=== PATIENT | female | born 1945 | race Caucasian/White ===

== ENCOUNTER 2018-07-07 15:08 | Inpatient (IN) ==
[2018-07-07 17:11] LABS: Basophils % 0.8 % (0.0-0.8); Eosinophils # 0.5 10*3/uL (0.0-0.87); Eosinophils % 9.6 % (0.00-10.9); Hematocrit 27.9 VOL% (35.7-47.0); Hemoglobin 8.4 GM/DL (12.0-16.0); Immature Granulocytes % 0.4 %; Immature Granulocytes Absolute 0.02 #; Lymphocytes # 1.3 10*3/uL (1.4-4.0); Mean Corpuscular HGB Conc 30.1 GM/DL (32-36); Mean Corpuscular Hemoglobin 28 PG (27-34); Mean Corpuscular Volume 91.8 FL (87-102); Mean Platelet Volume 10.3 FL (9.6-12.0); Monocytes # 0.5 10*3/uL (0.11-0.8); Neutrophils % 56.2 % (38.7-73.9); Platelet Count 202 T/CUMM (130-400); Red Blood Count 3.04 MC/CUMM (3.8-5.5); Red Cell Distribution Width 14.5 % (9.3-17.3); White Blood Count 5.3 T/CUMM (4-12)
[2018-07-07 17:24] LABS: PT Patient Result 10.6 SECS
[2018-07-07 17:31] LABS: Albumin 3.5 G/DL (3.4-5.0); Bilirubin,Total 0.6 MG/DL (0.2-1.0); Calcium 9.6 MG/DL (8.5-10.1); Osmolality,Calculated 298.1 MOS/KG (273-304); Potassium 4.8 MMOL/L (3.5-5.1); Total Protein 6.9 G/DL (6.4-8.3)
[2018-07-07] MEDS: ACETAMINOPHEN 325 MG TABLET PO PRN (21:05)
[2018-07-07] MEDS ORDERED: NITROGLYCERIN SL 0.4 MG TABLET SL STA (23:41)
[2018-07-07] MEDS ORDERED: GLUCAGON 1 MG VIAL IM PRN (23:45)
[2018-07-07] MEDS ORDERED: ALBUTEROL/IPRATROPIUM 3 ML NEB RESP TX PRN (23:45)
[2018-07-07] MEDS ORDERED: SODIUM CHLORIDE 0.9% 1,000 ML IV SCH (23:45)
[2018-07-07] MEDS ORDERED: FUROSEMIDE 40 MG TABLET PO PRN (23:45)
[2018-07-07] MEDS ORDERED: DEXTROSE 50% 25 GM/50 ML VIAL IV PRN (23:45)
[2018-07-08 00:20] LABS: Troponin I < 0.015 NG/ML (0.00-0.045)
[2018-07-08] MEDS: INSULIN REGULAR 100 UNIT/ML SUBCUT SCH ×4 (01:17→18:00)
[2018-07-08 04:23] LABS: Basophils % 0.9 % (0.0-0.8); Eosinophils # 0.5 10*3/uL (0.0-0.87); Eosinophils % 10.3 % (0.00-10.9); Hematocrit 25.5 VOL% (35.7-47.0); Hemoglobin 7.6 GM/DL (12.0-16.0); Immature Granulocytes % 0.2 %; Immature Granulocytes Absolute 0.01 #; Lymphocytes # 1.3 10*3/uL (1.4-4.0); Lymphocytes % 28.8 % (21.3-54.2); Mean Corpuscular HGB Conc 29.8 GM/DL (32-36); Mean Corpuscular Hemoglobin 28 PG (27-34); Mean Corpuscular Volume 93.1 FL (87-102); Mean Platelet Volume 10.3 FL (9.6-12.0); Monocytes # 0.4 10*3/uL (0.11-0.8); Monocytes % 9.5 % (1.7-12.7); Neutrophils # 2.3 10*3/uL (1.4-7.4); Neutrophils % 50.3 % (38.7-73.9); Platelet Count 174 T/CUMM (130-400); Red Blood Count 2.74 MC/CUMM (3.8-5.5); Red Cell Distribution Width 14.6 % (9.3-17.3); White Blood Count 4.7 T/CUMM (4-12)
[2018-07-08 04:52] LABS: Albumin 2.9 G/DL (3.4-5.0); Bilirubin,Total 0.5 MG/DL (0.2-1.0); Calcium 9.1 MG/DL (8.5-10.1); Osmolality,Calculated 298.1 MOS/KG (273-304); Potassium 4.2 MMOL/L (3.5-5.1); Risk Ratio 3.33; Total Protein 6.3 G/DL (6.4-8.3)
[2018-07-08] MEDS ORDERED: FUROSEMIDE 20 MG/2 ML VIAL IV SCH (08:00)
[2018-07-08] MEDS ORDERED: CARVEDILOL 6.25 MG TABLET PO SCH (08:00)
[2018-07-08] MEDS ORDERED: PRAVASTATIN SODIUM 80 MG PO SCH (09:00)
[2018-07-08] MEDS ORDERED: GABAPENTIN 100 MG CAPSULE PO SCH (09:00)
[2018-07-08] MEDS ORDERED: DOCUSATE SODIUM 100 MG CAPSULE PO SCH (09:00)
[2018-07-08] MEDS ORDERED: FUROSEMIDE 20 MG/2 ML VIAL IV ONE ×2 (09:57→15:34)
[2018-07-08] MEDS: ONDANSETRON 4 MG/2 ML VIAL IV PRN (10:19)
[2018-07-08] MEDS: ALBUTEROL/IPRATROPIUM 3 ML NEB RESP TX SCH ×3 (10:20→18:40)
[2018-07-08] MEDS: FUROSEMIDE 40 MG/4 ML VIAL IV SCH ×2 (10:38→16:32)
[2018-07-08 11:04] LABS: Amorphous Crystals,Urine Occasional /HPF (Few); Apearance,Urine Slightly Hazy (Clear); Bilirubin,Urine Negative (Negative); Blood, Urine Small mg/dL (Negative); Glucose,Urine (UA) 50 mg/dL (Negative); Ketones,Urine Negative (Negative); Mucus,Urine Occasional /LPF (Occasional); Nitrite,Urine Positive (Negative); Protein,Urine >=500 MG/DL; RBC,Urine 6 /HPF (0-4); Urine Color Yellow (Yellow); Urine Specific Gravity 1.011 (1.001-1.035); Urine Urobilinogen < 2.0 EU/DL (0.2-1.0); WBC,Urine 66 /HPF (0-6)
[2018-07-08] MEDS: amLODIPine 10 MG TABLET PO SCH (11:08)
[2018-07-08] MEDS: PARoxetine 20 MG TABLET PO SCH (11:08)
[2018-07-08] MEDS: DOCUSATE SODIUM 100 MG CAPSULE PO SCH ×2 (11:08→21:00)
[2018-07-08] MEDS: FERROUS SULFATE 325 MG TABLET PO SCH (11:09)
[2018-07-08] MEDS: APIXABAN 2.5 MG TABLET PO SCH ×2 (11:09→23:32)
[2018-07-08] MEDS: PANTOPRAZOLE 40 MG TABLET PO SCH (11:09)
[2018-07-08] MEDS: CYANOCOBALAMIN 500 MCG TABLET PO SCH (11:09)
[2018-07-08] MEDS: ASPIRIN EC 81 MG TABLET PO SCH (11:10)
[2018-07-08] MEDS: ISOSORBIDE MONONITRATE 30 MG TABLET PO SCH (11:10)
[2018-07-08] MEDS: ERGOCALCIFEROL 50,000 UNIT CAPSULE PO SCH (11:14)
[2018-07-08] MEDS: cefTRIAXone 1,000 MG in SYRINGE 1 EACH IV SCH (14:44)
[2018-07-08] MEDS ORDERED: SODIUM CHLORIDE 0.9% 1,000 ML IV PRN (15:34)
[2018-07-08] MEDS: CARVEDILOL 12.5 MG TABLET PO SCH (16:32)
[2018-07-08 16:49] LABS: % Iron Saturation 12.6 % (18-50); Ferritin 353.3 ng/ml (8-252)
[2018-07-08] MEDS: ROSUVASTATIN 20 MG TABLET PO SCH (23:32)
[2018-07-08] MEDS: GABAPENTIN 300 MG CAPSULE PO SCH (23:33)
[2018-07-08] MEDS: INSULIN GLARGINE 100 UNIT/ML SUBCUT SCH (23:33)
[2018-07-09] MEDS: ALBUTEROL/IPRATROPIUM 3 ML NEB RESP TX SCH ×4 (00:10→20:22)
[2018-07-09] MEDS: INSULIN REGULAR 100 UNIT/ML SUBCUT SCH ×4 (00:48→17:25)
[2018-07-09 04:25] LABS: Basophils % 0.7 % (0.0-0.8); Eosinophils # 0.4 10*3/uL (0.0-0.87); Eosinophils % 7.8 % (0.00-10.9); Hematocrit 30.6 VOL% (35.7-47.0); Hemoglobin 9.7 GM/DL (12.0-16.0); Immature Granulocytes % 0.2 %; Immature Granulocytes Absolute 0.01 #; Lymphocytes % 18.3 % (21.3-54.2); Mean Corpuscular HGB Conc 31.7 GM/DL (32-36); Mean Corpuscular Hemoglobin 29 PG (27-34); Mean Corpuscular Volume 90.5 FL (87-102); Mean Platelet Volume 10.1 FL (9.6-12.0); Monocytes # 0.5 10*3/uL (0.11-0.8); Monocytes % 9.6 % (1.7-12.7); Neutrophils # 3.4 10*3/uL (1.4-7.4); Neutrophils % 63.4 % (38.7-73.9); Platelet Count 164 T/CUMM (130-400); Red Blood Count 3.38 MC/CUMM (3.8-5.5); Red Cell Distribution Width 14.3 % (9.3-17.3); White Blood Count 5.4 T/CUMM (4-12)
[2018-07-09 04:47] LABS: Osmolality,Calculated 298.1 MOS/KG (273-304); Potassium 4.1 MMOL/L (3.5-5.1)
[2018-07-09] MEDS: FUROSEMIDE 40 MG/4 ML VIAL IV SCH ×3 (09:24→16:43)
[2018-07-09] MEDS: CARVEDILOL 12.5 MG TABLET PO SCH ×2 (10:04→16:28)
[2018-07-09] MEDS: ASPIRIN EC 81 MG TABLET PO SCH (10:05)
[2018-07-09] MEDS: FOLIC ACID 0.4 MG TABLET PO SCH (10:05)
[2018-07-09] MEDS: DOCUSATE SODIUM 100 MG CAPSULE PO SCH ×2 (10:05→21:51)
[2018-07-09] MEDS: APIXABAN 2.5 MG TABLET PO SCH ×2 (10:05→21:51)
[2018-07-09] MEDS: FERROUS SULFATE 325 MG TABLET PO SCH (10:05)
[2018-07-09] MEDS: ISOSORBIDE MONONITRATE 30 MG TABLET PO SCH (10:06)
[2018-07-09] MEDS: amLODIPine 10 MG TABLET PO SCH (10:06)
[2018-07-09] MEDS: CYANOCOBALAMIN 500 MCG TABLET PO SCH (10:06)
[2018-07-09] MEDS: PANTOPRAZOLE 40 MG TABLET PO SCH (10:06)
[2018-07-09] MEDS: PARoxetine 20 MG TABLET PO SCH (10:06)
[2018-07-09] MEDS: cefTRIAXone 1,000 MG in SYRINGE 1 EACH IV SCH (16:28)
[2018-07-09] MEDS: ACETAMINOPHEN 325 MG TABLET PO PRN (19:12)
[2018-07-09] MEDS: INSULIN GLARGINE 100 UNIT/ML SUBCUT SCH (21:51)
[2018-07-09] MEDS: ROSUVASTATIN 20 MG TABLET PO SCH (21:51)
[2018-07-09] MEDS: GABAPENTIN 300 MG CAPSULE PO SCH (21:51)
[2018-07-10] MEDS: ALBUTEROL/IPRATROPIUM 3 ML NEB RESP TX SCH ×4 (01:34→20:02)
[2018-07-10 03:11] LABS: Basophils % 0.7 % (0.0-0.8); Eosinophils # 0.7 10*3/uL (0.0-0.87); Eosinophils % 12.6 % (0.00-10.9); Hematocrit 32.6 VOL% (35.7-47.0); Hemoglobin 10.3 GM/DL (12.0-16.0); Immature Granulocytes % 0.2 %; Immature Granulocytes Absolute 0.01 #; Lymphocytes # 1.3 10*3/uL (1.4-4.0); Lymphocytes % 23.3 % (21.3-54.2); Mean Corpuscular HGB Conc 31.6 GM/DL (32-36); Mean Corpuscular Hemoglobin 29 PG (27-34); Mean Corpuscular Volume 90.8 FL (87-102); Mean Platelet Volume 10.2 FL (9.6-12.0); Monocytes # 0.6 10*3/uL (0.11-0.8); Monocytes % 10.7 % (1.7-12.7); Neutrophils # 2.8 10*3/uL (1.4-7.4); Neutrophils % 52.5 % (38.7-73.9); Platelet Count 161 T/CUMM (130-400); Red Blood Count 3.59 MC/CUMM (3.8-5.5); Red Cell Distribution Width 14.4 % (9.3-17.3); White Blood Count 5.4 T/CUMM (4-12)
[2018-07-10 03:40] LABS: Calcium 8.9 MG/DL (8.5-10.1); Osmolality,Calculated 302.1 MOS/KG (273-304); Potassium 3.6 MMOL/L (3.5-5.1)
[2018-07-10 03:56] LABS: Eosinophils 12 % (0-10); Lymphocytes 24 % (20-55); Segmented Neutrophils 53 % (50-85); Total Cells Counted 100
[2018-07-10 03:57] LABS: Platelet Estimate Normal
[2018-07-10] MEDS: INSULIN REGULAR 100 UNIT/ML SUBCUT SCH ×4 (04:51→18:02)
[2018-07-10] MEDS ORDERED: FUROSEMIDE 40 MG TABLET PO SCH (08:00)
[2018-07-10] MEDS: ASPIRIN EC 81 MG TABLET PO SCH (08:58)
[2018-07-10] MEDS: CARVEDILOL 12.5 MG TABLET PO SCH ×2 (08:58→18:02)
[2018-07-10] MEDS: FERROUS SULFATE 325 MG TABLET PO SCH (08:58)
[2018-07-10] MEDS: DOCUSATE SODIUM 100 MG CAPSULE PO SCH ×2 (08:58→20:33)
[2018-07-10] MEDS: CYANOCOBALAMIN 500 MCG TABLET PO SCH (08:59)
[2018-07-10] MEDS: APIXABAN 2.5 MG TABLET PO SCH ×2 (08:59→20:33)
[2018-07-10] MEDS: amLODIPine 10 MG TABLET PO SCH (08:59)
[2018-07-10] MEDS: ISOSORBIDE MONONITRATE 30 MG TABLET PO SCH (08:59)
[2018-07-10] MEDS: PANTOPRAZOLE 40 MG TABLET PO SCH (08:59)
[2018-07-10] MEDS: PARoxetine 20 MG TABLET PO SCH (08:59)
[2018-07-10] MEDS ORDERED: DEXTROSE 50% 25 GM/50 ML VIAL IV PRN (09:03)
[2018-07-10] MEDS ORDERED: GLUCAGON 1 MG VIAL IM PRN (09:03)
[2018-07-10] MEDS: cefTRIAXone 1,000 MG in SYRINGE 1 EACH IV SCH (15:02)
[2018-07-10] MEDS ORDERED: PHENOL 1.4% THROAT SPRAY 177 ML BOTTLE PO PRN (18:06)
[2018-07-10] MEDS: GABAPENTIN 300 MG CAPSULE PO SCH (20:32)
[2018-07-10] MEDS: ROSUVASTATIN 20 MG TABLET PO SCH (20:32)
[2018-07-10] MEDS: INSULIN GLARGINE 100 UNIT/ML SUBCUT SCH (20:33)
[2018-07-11] MEDS: ALBUTEROL/IPRATROPIUM 3 ML NEB RESP TX SCH ×4 (00:18→19:31)
[2018-07-11] MEDS: INSULIN REGULAR 100 UNIT/ML SUBCUT SCH ×5 (00:30→23:23)
[2018-07-11 05:51] LABS: Basophils % 0.6 % (0.0-0.8); Eosinophils # 0.7 10*3/uL (0.0-0.87); Eosinophils % 13.7 % (0.00-10.9); Hematocrit 31.6 VOL% (35.7-47.0); Hemoglobin 9.9 GM/DL (12.0-16.0); Immature Granulocytes % 0.2 %; Immature Granulocytes Absolute 0.01 #; Lymphocytes # 1.4 10*3/uL (1.4-4.0); Lymphocytes % 26.3 % (21.3-54.2); Mean Corpuscular HGB Conc 31.3 GM/DL (32-36); Mean Corpuscular Hemoglobin 28 PG (27-34); Mean Corpuscular Volume 89.8 FL (87-102); Mean Platelet Volume 10.6 FL (9.6-12.0); Monocytes # 0.6 10*3/uL (0.11-0.8); Monocytes % 10.3 % (1.7-12.7); Neutrophils # 2.6 10*3/uL (1.4-7.4); Neutrophils % 48.9 % (38.7-73.9); Platelet Count 168 T/CUMM (130-400); Red Blood Count 3.52 MC/CUMM (3.8-5.5); White Blood Count 5.3 T/CUMM (4-12)
[2018-07-11 06:12] LABS: Calcium 8.8 MG/DL (8.5-10.1); Osmolality,Calculated 298.3 MOS/KG (273-304); Potassium 3.4 MMOL/L (3.5-5.1)
[2018-07-11 06:20] LABS: Hypochromasia 1+; Microcytosis 1+
[2018-07-11 06:21] LABS: Ovalocytes Slight; Platelet Estimate Adequate
[2018-07-11] MEDS: CYANOCOBALAMIN 500 MCG TABLET PO SCH (09:16)
[2018-07-11] MEDS: DOCUSATE SODIUM 100 MG CAPSULE PO SCH ×2 (09:16→22:12)
[2018-07-11] MEDS: PANTOPRAZOLE 40 MG TABLET PO SCH (09:16)
[2018-07-11] MEDS: FOLIC ACID 0.4 MG TABLET PO SCH (09:16)
[2018-07-11] MEDS: FUROSEMIDE 40 MG TABLET PO SCH (09:16)
[2018-07-11] MEDS: CARVEDILOL 12.5 MG TABLET PO SCH ×2 (09:17→18:04)
[2018-07-11] MEDS: ASPIRIN EC 81 MG TABLET PO SCH (09:17)
[2018-07-11] MEDS: PARoxetine 20 MG TABLET PO SCH (09:17)
[2018-07-11] MEDS: ISOSORBIDE MONONITRATE 30 MG TABLET PO SCH (09:17)
[2018-07-11] MEDS: FERROUS SULFATE 325 MG TABLET PO SCH (09:17)
[2018-07-11] MEDS: amLODIPine 10 MG TABLET PO SCH (09:17)
[2018-07-11] MEDS: APIXABAN 2.5 MG TABLET PO SCH ×2 (09:17→22:13)
[2018-07-11] MEDS: ERGOCALCIFEROL 50,000 UNIT CAPSULE PO SCH (09:20)
[2018-07-11] MEDS: ZINC OXIDE PASTE 113 GM TUBE TOP SCH ×2 (15:03→22:12)
[2018-07-11] MEDS: ACETAMINOPHEN 325 MG TABLET PO PRN (15:03)
[2018-07-11] MEDS: cefTRIAXone 1,000 MG in SYRINGE 1 EACH IV SCH (15:08)
[2018-07-11] MEDS: ROSUVASTATIN 20 MG TABLET PO SCH (22:12)
[2018-07-11] MEDS: GABAPENTIN 300 MG CAPSULE PO SCH (22:13)
[2018-07-11] MEDS: INSULIN GLARGINE 100 UNIT/ML SUBCUT SCH (22:13)
[2018-07-12] MEDS: ALBUTEROL/IPRATROPIUM 3 ML NEB RESP TX SCH ×4 (00:34→20:48)
[2018-07-12 05:28] LABS: Basophils % 0.8 % (0.0-0.8); Eosinophils # 0.6 10*3/uL (0.0-0.87); Hematocrit 30.2 VOL% (35.7-47.0); Hemoglobin 9.5 GM/DL (12.0-16.0); Immature Granulocytes % 0.2 %; Immature Granulocytes Absolute 0.01 #; Lymphocytes # 1.2 10*3/uL (1.4-4.0); Lymphocytes % 25.8 % (21.3-54.2); Mean Corpuscular HGB Conc 31.5 GM/DL (32-36); Mean Corpuscular Hemoglobin 29 PG (27-34); Mean Platelet Volume 10.5 FL (9.6-12.0); Monocytes # 0.6 10*3/uL (0.11-0.8); Monocytes % 12.4 % (1.7-12.7); Neutrophils # 2.3 10*3/uL (1.4-7.4); Neutrophils % 47.8 % (38.7-73.9); Platelet Count 155 T/CUMM (130-400); Red Blood Count 3.32 MC/CUMM (3.8-5.5); Red Cell Distribution Width 13.7 % (9.3-17.3); White Blood Count 4.8 T/CUMM (4-12)
[2018-07-12 05:47] LABS: Calcium 8.7 MG/DL (8.5-10.1); Osmolality,Calculated 302.3 MOS/KG (273-304); Potassium 3.6 MMOL/L (3.5-5.1)
[2018-07-12] MEDS: INSULIN REGULAR 100 UNIT/ML SUBCUT SCH ×3 (06:15→18:34)
[2018-07-12 06:16] LABS: Eosinophils 10 % (0-10); Hypochromasia Slight; Lymphocytes 31 % (20-55); Platelet Estimate Decreased; Polychromasia Few; Segmented Neutrophils 53 % (50-85); Total Cells Counted 100
[2018-07-12] MEDS: CARVEDILOL 12.5 MG TABLET PO SCH (10:20)
[2018-07-12] MEDS: ZINC OXIDE PASTE 113 GM TUBE TOP SCH ×2 (10:20→21:36)
[2018-07-12] MEDS: FERROUS SULFATE 325 MG TABLET PO SCH (10:20)
[2018-07-12] MEDS: POTASSIUM CHLORIDE 20 MEQ TABLET PO PRN (10:21)
[2018-07-12] MEDS: PANTOPRAZOLE 40 MG TABLET PO SCH (10:21)
[2018-07-12] MEDS: FUROSEMIDE 40 MG TABLET PO SCH (10:21)
[2018-07-12] MEDS: ASPIRIN EC 81 MG TABLET PO SCH (10:21)
[2018-07-12] MEDS: DOCUSATE SODIUM 100 MG CAPSULE PO SCH ×2 (10:21→21:36)
[2018-07-12] MEDS: amLODIPine 10 MG TABLET PO SCH (10:22)
[2018-07-12] MEDS: PARoxetine 20 MG TABLET PO SCH (10:22)
[2018-07-12] MEDS: ISOSORBIDE MONONITRATE 30 MG TABLET PO SCH (10:22)
[2018-07-12] MEDS: APIXABAN 2.5 MG TABLET PO SCH ×2 (10:22→21:35)
[2018-07-12] MEDS: CYANOCOBALAMIN 500 MCG TABLET PO SCH (10:22)
[2018-07-12] MEDS: cefTRIAXone 1,000 MG in SYRINGE 1 EACH IV SCH (14:54)
[2018-07-12] MEDS: LINEZOLID INJ 600 MG in PREMIX 1 EACH IV SCH (16:43)
[2018-07-12] MEDS: CARVEDILOL 25 MG TABLET PO SCH (17:00)
[2018-07-12] MEDS: ROSUVASTATIN 20 MG TABLET PO SCH (21:34)
[2018-07-12] MEDS: INSULIN GLARGINE 100 UNIT/ML SUBCUT SCH (21:35)
[2018-07-12] MEDS: GABAPENTIN 300 MG CAPSULE PO SCH (21:35)
[2018-07-12] MEDS: ACETAMINOPHEN 325 MG TABLET PO PRN (22:43)
[2018-07-13] MEDS: ALBUTEROL/IPRATROPIUM 3 ML NEB RESP TX SCH ×4 (02:03→19:56)
[2018-07-13] MEDS: INSULIN REGULAR 100 UNIT/ML SUBCUT SCH ×4 (02:52→18:08)
[2018-07-13 05:07] LABS: Basophils # 0.1 10*3/uL (0.0-0.2); Eosinophils # 0.8 10*3/uL (0.0-0.87); Eosinophils % 15.4 % (0.00-10.9); Hematocrit 30.7 VOL% (35.7-47.0); Hemoglobin 9.5 GM/DL (12.0-16.0); Immature Granulocytes % 0.2 %; Immature Granulocytes Absolute 0.01 #; Lymphocytes # 1.6 10*3/uL (1.4-4.0); Lymphocytes % 31.8 % (21.3-54.2); Mean Corpuscular HGB Conc 30.9 GM/DL (32-36); Mean Corpuscular Hemoglobin 28 PG (27-34); Mean Corpuscular Volume 90.6 FL (87-102); Mean Platelet Volume 10.6 FL (9.6-12.0); Monocytes # 0.6 10*3/uL (0.11-0.8); Monocytes % 11.9 % (1.7-12.7); Neutrophils # 1.9 10*3/uL (1.4-7.4); Neutrophils % 39.7 % (38.7-73.9); Platelet Count 159 T/CUMM (130-400); Red Blood Count 3.39 MC/CUMM (3.8-5.5); Red Cell Distribution Width 13.4 % (9.3-17.3); White Blood Count 4.9 T/CUMM (4-12)
[2018-07-13 05:23] LABS: Calcium 8.8 MG/DL (8.5-10.1); Osmolality,Calculated 298.4 MOS/KG (273-304); Potassium 3.7 MMOL/L (3.5-5.1)
[2018-07-13] MEDS: LINEZOLID INJ 600 MG in PREMIX 1 EACH IV SCH ×2 (05:31→16:38)
[2018-07-13 06:18] LABS: Band Neutrophils 5 % (0-10); Eosinophils 13 % (0-10); Lymphocytes 25 % (20-55); Segmented Neutrophils 51 % (50-85)
[2018-07-13 06:19] LABS: Platelet Estimate Adequate; Total Cells Counted 100
[2018-07-13] MEDS: CYANOCOBALAMIN 500 MCG TABLET PO SCH (08:53)
[2018-07-13] MEDS: FOLIC ACID 0.4 MG TABLET PO SCH (08:53)
[2018-07-13] MEDS: POTASSIUM CHLORIDE 20 MEQ TABLET PO PRN (08:53)
[2018-07-13] MEDS: FUROSEMIDE 40 MG TABLET PO SCH (08:53)
[2018-07-13] MEDS: DOCUSATE SODIUM 100 MG CAPSULE PO SCH ×2 (08:54→20:17)
[2018-07-13] MEDS: ZINC OXIDE PASTE 113 GM TUBE TOP SCH ×2 (08:54→20:18)
[2018-07-13] MEDS: CARVEDILOL 25 MG TABLET PO SCH ×2 (08:54→16:41)
[2018-07-13] MEDS: amLODIPine 10 MG TABLET PO SCH (08:54)
[2018-07-13] MEDS: ASPIRIN EC 81 MG TABLET PO SCH (08:54)
[2018-07-13] MEDS: ISOSORBIDE MONONITRATE 30 MG TABLET PO SCH (08:54)
[2018-07-13] MEDS: APIXABAN 2.5 MG TABLET PO SCH ×2 (08:54→20:18)
[2018-07-13] MEDS: FERROUS SULFATE 325 MG TABLET PO SCH (08:54)
[2018-07-13] MEDS: PANTOPRAZOLE 40 MG TABLET PO SCH (08:54)
[2018-07-13] MEDS: ACETAMINOPHEN 325 MG TABLET PO PRN (16:45)
[2018-07-13] MEDS: ROSUVASTATIN 20 MG TABLET PO SCH (20:17)
[2018-07-13] MEDS: GABAPENTIN 300 MG CAPSULE PO SCH (20:18)
[2018-07-13] MEDS: INSULIN GLARGINE 100 UNIT/ML SUBCUT SCH (20:18)
[2018-07-14] MEDS: ALBUTEROL/IPRATROPIUM 3 ML NEB RESP TX SCH ×4 (00:27→19:50)
[2018-07-14] MEDS: INSULIN REGULAR 100 UNIT/ML SUBCUT SCH ×4 (00:49→21:25)
[2018-07-14] MEDS: LINEZOLID INJ 600 MG in PREMIX 1 EACH IV SCH ×2 (04:20→16:13)
[2018-07-14 06:22] LABS: Basophils % 0.8 % (0.0-0.8); Eosinophils # 0.7 10*3/uL (0.0-0.87); Eosinophils % 13.5 % (0.00-10.9); Hematocrit 30.1 VOL% (35.7-47.0); Hemoglobin 9.4 GM/DL (12.0-16.0); Immature Granulocytes % 0.2 %; Immature Granulocytes Absolute 0.01 #; Lymphocytes # 1.6 10*3/uL (1.4-4.0); Lymphocytes % 30.3 % (21.3-54.2); Mean Corpuscular HGB Conc 31.2 GM/DL (32-36); Mean Corpuscular Hemoglobin 28 PG (27-34); Mean Corpuscular Volume 90.4 FL (87-102); Mean Platelet Volume 11.1 FL (9.6-12.0); Monocytes # 0.5 10*3/uL (0.11-0.8); Monocytes % 9.8 % (1.7-12.7); Neutrophils # 2.4 10*3/uL (1.4-7.4); Neutrophils % 45.4 % (38.7-73.9); Platelet Count 156 T/CUMM (130-400); Red Blood Count 3.33 MC/CUMM (3.8-5.5); Red Cell Distribution Width 13.2 % (9.3-17.3); White Blood Count 5.2 T/CUMM (4-12)
[2018-07-14 06:55] LABS: Calcium 8.9 MG/DL (8.5-10.1); Osmolality,Calculated 299.7 MOS/KG (273-304)
[2018-07-14 07:06] LABS: Eosinophils 19 % (0-10); Hypochromasia 1+; Lymphocytes 27 % (20-55); Platelet Estimate Adequate; Segmented Neutrophils 52 % (50-85); Total Cells Counted 100
[2018-07-14] MEDS: FUROSEMIDE 40 MG TABLET PO SCH (09:12)
[2018-07-14] MEDS: ASPIRIN EC 81 MG TABLET PO SCH (09:12)
[2018-07-14] MEDS: CYANOCOBALAMIN 500 MCG TABLET PO SCH (09:12)
[2018-07-14] MEDS: DOCUSATE SODIUM 100 MG CAPSULE PO SCH ×2 (09:12→21:25)
[2018-07-14] MEDS: CARVEDILOL 25 MG TABLET PO SCH ×2 (09:12→16:14)
[2018-07-14] MEDS: PANTOPRAZOLE 40 MG TABLET PO SCH (09:12)
[2018-07-14] MEDS: APIXABAN 2.5 MG TABLET PO SCH ×2 (09:12→21:25)
[2018-07-14] MEDS: FERROUS SULFATE 325 MG TABLET PO SCH (09:12)
[2018-07-14] MEDS: ISOSORBIDE MONONITRATE 30 MG TABLET PO SCH (09:12)
[2018-07-14] MEDS: amLODIPine 10 MG TABLET PO SCH (09:12)
[2018-07-14] MEDS: ZINC OXIDE PASTE 113 GM TUBE TOP SCH ×2 (09:13→21:25)
[2018-07-14] MEDS: DESITIN 4OZ/NYSTATIN 15 GRAM MIXTURE PASTE TOP SCH ×2 (16:15→21:25)
[2018-07-14] MEDS: ROSUVASTATIN 20 MG TABLET PO SCH (21:24)
[2018-07-14] MEDS: GABAPENTIN 300 MG CAPSULE PO SCH (21:24)
[2018-07-14] MEDS: INSULIN GLARGINE 100 UNIT/ML SUBCUT SCH (21:25)
[2018-07-15] MEDS: INSULIN REGULAR 100 UNIT/ML SUBCUT SCH ×4 (00:31→19:20)
[2018-07-15] MEDS: ALBUTEROL/IPRATROPIUM 3 ML NEB RESP TX SCH ×4 (01:45→19:21)
[2018-07-15] MEDS: LINEZOLID INJ 600 MG in PREMIX 1 EACH IV SCH ×2 (04:36→16:53)
[2018-07-15] MEDS: ACETAMINOPHEN 325 MG TABLET PO PRN (06:43)
[2018-07-15 08:16] LABS: Calcium 9.2 MG/DL (8.5-10.1); Osmolality,Calculated 303.7 MOS/KG (273-304)
[2018-07-15] MEDS: FOLIC ACID 0.4 MG TABLET PO SCH (09:37)
[2018-07-15] MEDS: amLODIPine 10 MG TABLET PO SCH (09:38)
[2018-07-15] MEDS: CARVEDILOL 25 MG TABLET PO SCH ×2 (09:38→16:53)
[2018-07-15] MEDS: CYANOCOBALAMIN 500 MCG TABLET PO SCH (09:38)
[2018-07-15] MEDS: ERGOCALCIFEROL 50,000 UNIT CAPSULE PO SCH (09:38)
[2018-07-15] MEDS: APIXABAN 2.5 MG TABLET PO SCH ×2 (09:39→22:04)
[2018-07-15] MEDS: FERROUS SULFATE 325 MG TABLET PO SCH (09:39)
[2018-07-15] MEDS: ISOSORBIDE MONONITRATE 30 MG TABLET PO SCH (09:39)
[2018-07-15] MEDS: ASPIRIN EC 81 MG TABLET PO SCH (09:39)
[2018-07-15] MEDS: FUROSEMIDE 40 MG TABLET PO SCH (09:39)
[2018-07-15] MEDS: DOCUSATE SODIUM 100 MG CAPSULE PO SCH ×2 (09:39→22:04)
[2018-07-15] MEDS: PANTOPRAZOLE 40 MG TABLET PO SCH (09:40)
[2018-07-15] MEDS ORDERED: MAGNESIUM SULF RIDER 2 GM in PREMIX 1 EACH IV PRN (09:41)
[2018-07-15] MEDS ORDERED: POTASSIUM CHLORIDE RIDER 10 MEQ in PREMIX 1 EACH IV PRN (09:41)
[2018-07-15] MEDS: ZINC OXIDE PASTE 113 GM TUBE TOP SCH ×3 (09:45→22:04)
[2018-07-15] MEDS: DESITIN 4OZ/NYSTATIN 15 GRAM MIXTURE PASTE TOP SCH ×2 (10:30→22:04)
[2018-07-15] MEDS ORDERED: TEMAZEPAM 15 MG CAPSULE PO PRN (20:18)
[2018-07-15] MEDS: INSULIN GLARGINE 100 UNIT/ML SUBCUT SCH (22:03)
[2018-07-15] MEDS: ROSUVASTATIN 20 MG TABLET PO SCH (22:04)
[2018-07-15] MEDS: GABAPENTIN 300 MG CAPSULE PO SCH (22:04)
[2018-07-16] MEDS: ALBUTEROL/IPRATROPIUM 3 ML NEB RESP TX SCH ×4 (00:39→20:44)
[2018-07-16] MEDS: INSULIN REGULAR 100 UNIT/ML SUBCUT SCH ×5 (02:42→22:05)
[2018-07-16] MEDS: LINEZOLID INJ 600 MG in PREMIX 1 EACH IV SCH ×2 (04:32→16:42)
[2018-07-16 05:06] LABS: Basophils # 0.1 10*3/uL (0.0-0.2); Basophils % 0.8 % (0.0-0.8); Eosinophils # 0.7 10*3/uL (0.0-0.87); Eosinophils % 10.7 % (0.00-10.9); Hematocrit 29.6 VOL% (35.7-47.0); Hemoglobin 9.3 GM/DL (12.0-16.0); Immature Granulocytes % 0.2 %; Immature Granulocytes Absolute 0.01 #; Lymphocytes # 1.9 10*3/uL (1.4-4.0); Lymphocytes % 29.3 % (21.3-54.2); Mean Corpuscular HGB Conc 31.4 GM/DL (32-36); Mean Corpuscular Hemoglobin 28 PG (27-34); Mean Corpuscular Volume 89.2 FL (87-102); Mean Platelet Volume 11.1 FL (9.6-12.0); Monocytes # 0.5 10*3/uL (0.11-0.8); Neutrophils # 3.2 10*3/uL (1.4-7.4); Platelet Count 175 T/CUMM (130-400); Red Blood Count 3.32 MC/CUMM (3.8-5.5); White Blood Count 6.4 T/CUMM (4-12)
[2018-07-16 05:26] LABS: Calcium 9.2 MG/DL (8.5-10.1); Osmolality,Calculated 304.8 MOS/KG (273-304); Potassium 3.8 MMOL/L (3.5-5.1)
[2018-07-16] MEDS ORDERED: POTASSIUM CHLORIDE RIDER 10 MEQ in PREMIX 1 EACH IV PRN (08:15)
[2018-07-16] MEDS ORDERED: MAGNESIUM SULF RIDER 2 GM in PREMIX 1 EACH IV PRN (08:15)
[2018-07-16] MEDS ORDERED: DIAZEPAM 5 MG TABLET PO ONE (11:00)
[2018-07-16] MEDS ORDERED: diphenhydrAMINE CAP 25 MG CAPSULE PO ONE (11:00)
[2018-07-16] MEDS ORDERED: LIDOCAINE 1% 20 ML VIAL ONE (11:46)
[2018-07-16] MEDS ORDERED: HEPARIN/NACL 0.9% 2 UNITS/ML 1,000 ML IV ONE (11:46)
[2018-07-16] MEDS: SODIUM CHLORIDE 0.9% 1,000 ML IV SCH ×2 (12:00→22:04)
[2018-07-16] MEDS ORDERED: MIDAZOLAM 2 MG/2 ML VIAL ONE (12:29)
[2018-07-16] MEDS ORDERED: HYDROmorphone 2 MG/1 ML VIAL ONE (12:29)
[2018-07-16] MEDS ORDERED: DEXTROSE 50% 25 GM/50 ML VIAL IV PRN (13:15)
[2018-07-16] MEDS ORDERED: GLUCAGON 1 MG VIAL IM PRN (13:15)
[2018-07-16] MEDS: FUROSEMIDE 40 MG TABLET PO SCH (15:50)
[2018-07-16] MEDS: ASPIRIN EC 81 MG TABLET PO SCH (15:51)
[2018-07-16] MEDS: GABAPENTIN 100 MG CAPSULE PO SCH ×3 (15:51→22:04)
[2018-07-16] MEDS: CYANOCOBALAMIN 500 MCG TABLET PO SCH (15:51)
[2018-07-16] MEDS: FERROUS SULFATE 325 MG TABLET PO SCH (15:51)
[2018-07-16] MEDS: amLODIPine 10 MG TABLET PO SCH (15:52)
[2018-07-16] MEDS: APIXABAN 2.5 MG TABLET PO SCH ×2 (15:52→22:04)
[2018-07-16] MEDS: CARVEDILOL 25 MG TABLET PO SCH ×2 (15:52→16:44)
[2018-07-16] MEDS: DOCUSATE SODIUM 100 MG CAPSULE PO SCH ×2 (15:52→22:05)
[2018-07-16] MEDS: ISOSORBIDE MONONITRATE 30 MG TABLET PO SCH (15:52)
[2018-07-16] MEDS: PANTOPRAZOLE 40 MG TABLET PO SCH (15:52)
[2018-07-16] MEDS: DESITIN 4OZ/NYSTATIN 15 GRAM MIXTURE PASTE TOP SCH ×2 (15:53→22:10)
[2018-07-16] MEDS: ZINC OXIDE PASTE 113 GM TUBE TOP SCH ×2 (15:53→22:05)
[2018-07-16] MEDS: ROSUVASTATIN 20 MG TABLET PO SCH (22:04)
[2018-07-16] MEDS: INSULIN GLARGINE 100 UNIT/ML SUBCUT SCH (22:05)
[2018-07-17] MEDS: LINEZOLID INJ 600 MG in PREMIX 1 EACH IV SCH ×3 (00:35→15:38)
[2018-07-17] MEDS: ALBUTEROL/IPRATROPIUM 3 ML NEB RESP TX SCH ×4 (00:48→20:46)
[2018-07-17 05:37] LABS: Calcium 9.5 MG/DL (8.5-10.1); Osmolality,Calculated 307.5 MOS/KG (273-304); Potassium 3.8 MMOL/L (3.5-5.1)
[2018-07-17 05:38] LABS: Calcium 9.1 MG/DL (8.5-10.1); Osmolality,Calculated 307.5 MOS/KG (273-304); Potassium 3.8 MMOL/L (3.5-5.1)
[2018-07-17] MEDS: INSULIN REGULAR 100 UNIT/ML SUBCUT SCH ×4 (08:57→22:15)
[2018-07-17] MEDS: GABAPENTIN 100 MG CAPSULE PO SCH ×3 (08:58→21:42)
[2018-07-17] MEDS: FOLIC ACID 0.4 MG TABLET PO SCH (08:58)
[2018-07-17] MEDS: ASPIRIN EC 81 MG TABLET PO SCH (08:58)
[2018-07-17] MEDS: CYANOCOBALAMIN 500 MCG TABLET PO SCH (08:59)
[2018-07-17] MEDS: CARVEDILOL 25 MG TABLET PO SCH ×2 (08:59→16:36)
[2018-07-17] MEDS: PANTOPRAZOLE 40 MG TABLET PO SCH (08:59)
[2018-07-17] MEDS: DOCUSATE SODIUM 100 MG CAPSULE PO SCH ×2 (08:59→21:42)
[2018-07-17] MEDS: APIXABAN 2.5 MG TABLET PO SCH ×2 (08:59→21:42)
[2018-07-17] MEDS: POTASSIUM CHLORIDE 20 MEQ TABLET PO PRN (08:59)
[2018-07-17] MEDS: amLODIPine 10 MG TABLET PO SCH (08:59)
[2018-07-17] MEDS: FUROSEMIDE 40 MG TABLET PO SCH (08:59)
[2018-07-17] MEDS: ZINC OXIDE PASTE 113 GM TUBE TOP SCH ×2 (09:00→22:15)
[2018-07-17] MEDS: FERROUS SULFATE 325 MG TABLET PO SCH (09:00)
[2018-07-17] MEDS: ISOSORBIDE MONONITRATE 30 MG TABLET PO SCH (09:00)
[2018-07-17] MEDS: DESITIN 4OZ/NYSTATIN 15 GRAM MIXTURE PASTE TOP SCH ×2 (09:00→22:16)
[2018-07-17] MEDS: hydrALAZINE 10 MG TABLET PO SCH ×2 (13:03→21:42)
[2018-07-17] MEDS: ACETAMINOPHEN 325 MG TABLET PO PRN (15:30)
[2018-07-17] MEDS: SODIUM CHLORIDE 0.9% 1,000 ML IV SCH ×2 (15:45→22:15)
[2018-07-17] MEDS: INSULIN GLARGINE 100 UNIT/ML SUBCUT SCH (21:41)
[2018-07-17] MEDS: ROSUVASTATIN 20 MG TABLET PO SCH (21:42)
[2018-07-18] MEDS: ALBUTEROL/IPRATROPIUM 3 ML NEB RESP TX SCH ×4 (02:11→19:42)
[2018-07-18] MEDS: SODIUM CHLORIDE 0.9% 1,000 ML IV SCH ×2 (04:14→17:18)
[2018-07-18] MEDS: LINEZOLID INJ 600 MG in PREMIX 1 EACH IV SCH ×2 (04:14→17:00)
[2018-07-18 06:09] LABS: Calcium 9.3 MG/DL (8.5-10.1); Osmolality,Calculated 310.4 MOS/KG (273-304); Potassium 3.9 MMOL/L (3.5-5.1)
[2018-07-18] MEDS: ERGOCALCIFEROL 50,000 UNIT CAPSULE PO SCH (09:06)
[2018-07-18] MEDS: PANTOPRAZOLE 40 MG TABLET PO SCH (09:06)
[2018-07-18] MEDS: ASPIRIN EC 81 MG TABLET PO SCH (09:06)
[2018-07-18] MEDS: ISOSORBIDE MONONITRATE 30 MG TABLET PO SCH (09:06)
[2018-07-18] MEDS: FUROSEMIDE 40 MG TABLET PO SCH (09:06)
[2018-07-18] MEDS: amLODIPine 10 MG TABLET PO SCH (09:07)
[2018-07-18] MEDS: GABAPENTIN 100 MG CAPSULE PO SCH ×3 (09:07→21:40)
[2018-07-18] MEDS: DOCUSATE SODIUM 100 MG CAPSULE PO SCH ×2 (09:07→21:40)
[2018-07-18] MEDS: APIXABAN 2.5 MG TABLET PO SCH ×2 (09:07→21:40)
[2018-07-18] MEDS: FERROUS SULFATE 325 MG TABLET PO SCH (09:07)
[2018-07-18] MEDS: CYANOCOBALAMIN 500 MCG TABLET PO SCH (09:07)
[2018-07-18] MEDS: CARVEDILOL 25 MG TABLET PO SCH ×2 (09:07→21:40)
[2018-07-18] MEDS: DESITIN 4OZ/NYSTATIN 15 GRAM MIXTURE PASTE TOP SCH ×2 (09:08→21:41)
[2018-07-18] MEDS: INSULIN REGULAR 100 UNIT/ML SUBCUT SCH ×4 (09:08→21:40)
[2018-07-18] MEDS: hydrALAZINE 10 MG TABLET PO SCH ×2 (09:08→21:40)
[2018-07-18] MEDS: ZINC OXIDE PASTE 113 GM TUBE TOP SCH ×2 (09:08→21:41)
[2018-07-18] MEDS: ACETAMINOPHEN 325 MG TABLET PO PRN (12:29)
[2018-07-18] MEDS: ROSUVASTATIN 20 MG TABLET PO SCH (21:40)
[2018-07-18] MEDS: INSULIN GLARGINE 100 UNIT/ML SUBCUT SCH (21:41)
[2018-07-19] MEDS: SODIUM CHLORIDE 0.9% 1,000 ML IV SCH ×3 (00:10→18:43)
[2018-07-19] MEDS: ALBUTEROL/IPRATROPIUM 3 ML NEB RESP TX SCH ×4 (00:10→19:50)
[2018-07-19] MEDS: LINEZOLID INJ 600 MG in PREMIX 1 EACH IV SCH ×2 (04:39→18:10)
[2018-07-19] MEDS: DOCUSATE SODIUM 100 MG CAPSULE PO SCH ×2 (08:22→21:13)
[2018-07-19] MEDS: FERROUS SULFATE 325 MG TABLET PO SCH (08:22)
[2018-07-19] MEDS: GABAPENTIN 100 MG CAPSULE PO SCH ×3 (08:22→21:13)
[2018-07-19] MEDS: APIXABAN 2.5 MG TABLET PO SCH ×2 (08:22→21:13)
[2018-07-19] MEDS: FUROSEMIDE 40 MG TABLET PO SCH (08:22)
[2018-07-19] MEDS: CYANOCOBALAMIN 500 MCG TABLET PO SCH (08:22)
[2018-07-19] MEDS: ASPIRIN EC 81 MG TABLET PO SCH (08:23)
[2018-07-19] MEDS: amLODIPine 10 MG TABLET PO SCH (08:23)
[2018-07-19] MEDS: CARVEDILOL 25 MG TABLET PO SCH ×2 (08:23→21:13)
[2018-07-19] MEDS: PANTOPRAZOLE 40 MG TABLET PO SCH (08:23)
[2018-07-19] MEDS: ISOSORBIDE MONONITRATE 30 MG TABLET PO SCH (08:23)
[2018-07-19] MEDS: FOLIC ACID 0.4 MG TABLET PO SCH (08:23)
[2018-07-19] MEDS: hydrALAZINE 10 MG TABLET PO SCH ×2 (08:23→21:13)
[2018-07-19] MEDS: INSULIN REGULAR 100 UNIT/ML SUBCUT SCH ×4 (08:25→21:14)
[2018-07-19] MEDS: ZINC OXIDE PASTE 113 GM TUBE TOP SCH ×2 (08:41→21:16)
[2018-07-19] MEDS: DESITIN 4OZ/NYSTATIN 15 GRAM MIXTURE PASTE TOP SCH ×2 (08:42→21:16)
[2018-07-19] MEDS: ACETAMINOPHEN 325 MG TABLET PO PRN ×2 (08:46→18:44)
[2018-07-19] MEDS: ROSUVASTATIN 20 MG TABLET PO SCH (21:13)
[2018-07-19] MEDS: INSULIN GLARGINE 100 UNIT/ML SUBCUT SCH (21:14)
[2018-07-20] MEDS: ALBUTEROL/IPRATROPIUM 3 ML NEB RESP TX SCH ×4 (01:30→20:27)
[2018-07-20] MEDS: SODIUM CHLORIDE 0.9% 1,000 ML IV SCH ×2 (03:55→14:48)
[2018-07-20] MEDS: INSULIN REGULAR 100 UNIT/ML SUBCUT SCH ×4 (09:19→21:00)
[2018-07-20] MEDS: ASPIRIN EC 81 MG TABLET PO SCH (09:20)
[2018-07-20] MEDS: APIXABAN 2.5 MG TABLET PO SCH ×2 (09:20→21:00)
[2018-07-20] MEDS: FERROUS SULFATE 325 MG TABLET PO SCH (09:20)
[2018-07-20] MEDS: amLODIPine 10 MG TABLET PO SCH (09:20)
[2018-07-20] MEDS: CYANOCOBALAMIN 500 MCG TABLET PO SCH (09:20)
[2018-07-20] MEDS: ISOSORBIDE MONONITRATE 30 MG TABLET PO SCH (09:21)
[2018-07-20] MEDS: GABAPENTIN 100 MG CAPSULE PO SCH ×3 (09:21→21:00)
[2018-07-20] MEDS: FUROSEMIDE 40 MG TABLET PO SCH (09:21)
[2018-07-20] MEDS: CARVEDILOL 25 MG TABLET PO SCH ×2 (09:21→21:00)
[2018-07-20] MEDS: hydrALAZINE 10 MG TABLET PO SCH ×2 (09:21→21:00)
[2018-07-20] MEDS: DOCUSATE SODIUM 100 MG CAPSULE PO SCH ×2 (09:21→20:59)
[2018-07-20] MEDS: PANTOPRAZOLE 40 MG TABLET PO SCH (09:21)
[2018-07-20] MEDS: ACETAMINOPHEN 325 MG TABLET PO PRN ×2 (09:26→16:16)
[2018-07-20] MEDS: LINEZOLID INJ 600 MG in PREMIX 1 EACH IV SCH (16:17)
[2018-07-20] MEDS: DESITIN 4OZ/NYSTATIN 15 GRAM MIXTURE PASTE TOP SCH ×2 (16:59→21:03)
[2018-07-20] MEDS: ZINC OXIDE PASTE 113 GM TUBE TOP SCH ×2 (16:59→21:01)
[2018-07-20] MEDS: ROSUVASTATIN 20 MG TABLET PO SCH (20:59)
[2018-07-20] MEDS: INSULIN GLARGINE 100 UNIT/ML SUBCUT SCH (21:01)
[2018-07-21] MEDS: ALBUTEROL/IPRATROPIUM 3 ML NEB RESP TX SCH ×4 (00:23→19:33)
[2018-07-21] MEDS: SODIUM CHLORIDE 0.9% 1,000 ML IV SCH ×3 (02:54→21:42)
[2018-07-21] MEDS: LINEZOLID INJ 600 MG in PREMIX 1 EACH IV SCH ×2 (04:09→16:50)
[2018-07-21] MEDS: INSULIN REGULAR 100 UNIT/ML SUBCUT SCH ×4 (08:14→21:43)
[2018-07-21] MEDS: ISOSORBIDE MONONITRATE 30 MG TABLET PO SCH (08:47)
[2018-07-21] MEDS: CYANOCOBALAMIN 500 MCG TABLET PO SCH (08:47)
[2018-07-21] MEDS: GABAPENTIN 100 MG CAPSULE PO SCH ×3 (08:47→21:40)
[2018-07-21] MEDS: amLODIPine 10 MG TABLET PO SCH (08:47)
[2018-07-21] MEDS: FOLIC ACID 0.4 MG TABLET PO SCH (08:47)
[2018-07-21] MEDS: FUROSEMIDE 40 MG TABLET PO SCH (08:47)
[2018-07-21] MEDS: DOCUSATE SODIUM 100 MG CAPSULE PO SCH ×2 (08:47→21:41)
[2018-07-21] MEDS: CARVEDILOL 25 MG TABLET PO SCH ×2 (08:48→21:40)
[2018-07-21] MEDS: FERROUS SULFATE 325 MG TABLET PO SCH (08:48)
[2018-07-21] MEDS: APIXABAN 2.5 MG TABLET PO SCH ×2 (08:48→21:41)
[2018-07-21] MEDS: hydrALAZINE 10 MG TABLET PO SCH ×2 (08:48→21:40)
[2018-07-21] MEDS: ZINC OXIDE PASTE 113 GM TUBE TOP SCH ×2 (08:48→21:43)
[2018-07-21] MEDS: PANTOPRAZOLE 40 MG TABLET PO SCH (08:48)
[2018-07-21] MEDS: DESITIN 4OZ/NYSTATIN 15 GRAM MIXTURE PASTE TOP SCH ×2 (08:48→21:43)
[2018-07-21] MEDS: ASPIRIN EC 81 MG TABLET PO SCH (08:48)
[2018-07-21] MEDS: ACETAMINOPHEN 325 MG TABLET PO PRN (11:09)
[2018-07-21 12:19] LABS: Calcium 9.4 MG/DL (8.5-10.1); Osmolality,Calculated 308.4 MOS/KG (273-304); Potassium 3.8 MMOL/L (3.5-5.1)
[2018-07-21] MEDS: INSULIN GLARGINE 100 UNIT/ML SUBCUT SCH (21:39)
[2018-07-21] MEDS: ROSUVASTATIN 20 MG TABLET PO SCH (21:41)
[2018-07-22] MEDS: ALBUTEROL/IPRATROPIUM 3 ML NEB RESP TX SCH ×4 (00:58→19:40)
[2018-07-22 05:18] LABS: Calcium 9.2 MG/DL (8.5-10.1); Osmolality,Calculated 310.5 MOS/KG (273-304); Potassium 3.4 MMOL/L (3.5-5.1)
[2018-07-22] MEDS: POTASSIUM CHLORIDE 20 MEQ TABLET PO PRN (05:47)
[2018-07-22] MEDS: LINEZOLID INJ 600 MG in PREMIX 1 EACH IV SCH ×2 (05:47→17:20)
[2018-07-22] MEDS: SODIUM CHLORIDE 0.9% 1,000 ML IV SCH (07:28)
[2018-07-22] MEDS: INSULIN REGULAR 100 UNIT/ML SUBCUT SCH ×4 (08:30→21:18)
[2018-07-22] MEDS: GABAPENTIN 100 MG CAPSULE PO SCH ×3 (09:23→21:16)
[2018-07-22] MEDS: DOCUSATE SODIUM 100 MG CAPSULE PO SCH ×3 (09:23→21:16)
[2018-07-22] MEDS: ISOSORBIDE MONONITRATE 30 MG TABLET PO SCH (09:24)
[2018-07-22] MEDS: PANTOPRAZOLE 40 MG TABLET PO SCH (09:24)
[2018-07-22] MEDS: FERROUS SULFATE 325 MG TABLET PO SCH (09:24)
[2018-07-22] MEDS: hydrALAZINE 10 MG TABLET PO SCH ×2 (09:24→21:16)
[2018-07-22] MEDS: amLODIPine 10 MG TABLET PO SCH (09:24)
[2018-07-22] MEDS: ASPIRIN EC 81 MG TABLET PO SCH (09:24)
[2018-07-22] MEDS: APIXABAN 2.5 MG TABLET PO SCH ×2 (09:24→21:16)
[2018-07-22] MEDS: CYANOCOBALAMIN 500 MCG TABLET PO SCH (09:24)
[2018-07-22] MEDS: CARVEDILOL 25 MG TABLET PO SCH ×2 (09:24→21:15)
[2018-07-22] MEDS: FUROSEMIDE 40 MG TABLET PO SCH (09:24)
[2018-07-22] MEDS: DESITIN 4OZ/NYSTATIN 15 GRAM MIXTURE PASTE TOP SCH ×2 (09:25→21:18)
[2018-07-22] MEDS: ERGOCALCIFEROL 50,000 UNIT CAPSULE PO SCH (09:25)
[2018-07-22] MEDS: ZINC OXIDE PASTE 113 GM TUBE TOP SCH ×2 (09:25→21:18)
[2018-07-22] MEDS: ACETAMINOPHEN 325 MG TABLET PO PRN (14:16)
[2018-07-22] MEDS: traMADol 50 MG TABLET PO PRN ×2 (15:47→22:38)
[2018-07-22 16:04] LABS: Hepatitis A Ab IgM Quant 0.15 Index; Hepatitis A Ab IgM Result Negative (Negative); Hepatitis B Core IgM Quant 0.12 Index; Hepatitis B Core IgM Result Negative (Negative); Hepatitis B Surface Ag Quant < 0.10 Index; Hepatitis B Surface Ag Result Negative (Negative); Hepatitis C Virus Ab Quant 0.05 Index; Hepatitis C Virus Ab Result Negative (Negative)
[2018-07-22] MEDS: ROSUVASTATIN 20 MG TABLET PO SCH (21:15)
[2018-07-22] MEDS: INSULIN GLARGINE 100 UNIT/ML SUBCUT SCH (21:16)
[2018-07-23] MEDS: ALBUTEROL/IPRATROPIUM 3 ML NEB RESP TX SCH ×4 (02:02→19:33)
[2018-07-23] MEDS: LINEZOLID INJ 600 MG in PREMIX 1 EACH IV SCH ×2 (05:34→17:25)
[2018-07-23] MEDS: ONDANSETRON 4 MG/2 ML VIAL IV PRN (07:42)
[2018-07-23] MEDS ORDERED: ONDANSETRON 4 MG/2 ML VIAL ONE (08:00)
[2018-07-23] MEDS: SODIUM CHLORIDE 0.9% 250 ML IV SCH ×2 (08:28→21:41)
[2018-07-23] MEDS ORDERED: BUPIVACAINE 0.25% /EPI 10 ML VIAL ONE (08:30)
[2018-07-23] MEDS ORDERED: LIDOCAINE 1%/EPI INJ 20 ML VIAL ONE (08:30)
[2018-07-23] MEDS ORDERED: HEPARIN 5,000 UNIT/1 ML VIAL ONE (08:30)
[2018-07-23] MEDS ORDERED: ONDANSETRON 4 MG/2 ML VIAL IV ONE (08:45)
[2018-07-23] MEDS ORDERED: PROPOFOL 200 MG/20 ML VIAL IV ONE (09:36)
[2018-07-23] MEDS ORDERED: fentaNYL 100 MCG/2 ML VIAL ONE (09:37)
[2018-07-23] MEDS ORDERED: PHENYLEPHRINE 1 MG/10 ML SYRINGE IV ONE (09:37)
[2018-07-23] MEDS ORDERED: MIDAZOLAM 2 MG/2 ML VIAL ONE (09:37)
[2018-07-23] MEDS: INSULIN REGULAR 100 UNIT/ML SUBCUT SCH ×4 (11:26→21:40)
[2018-07-23] MEDS: ACETAMINOPHEN 325 MG TABLET PO PRN (12:27)
[2018-07-23] MEDS ORDERED: HEPARIN 10,000 UNIT/10 ML VIAL IV PRN (13:43)
[2018-07-23] MEDS: FOLIC ACID 0.4 MG TABLET PO SCH (15:29)
[2018-07-23] MEDS: FUROSEMIDE 40 MG TABLET PO SCH (15:29)
[2018-07-23] MEDS: GABAPENTIN 100 MG CAPSULE PO SCH ×3 (15:29→21:40)
[2018-07-23] MEDS: PANTOPRAZOLE 40 MG TABLET PO SCH (15:29)
[2018-07-23] MEDS: ASPIRIN EC 81 MG TABLET PO SCH (15:29)
[2018-07-23] MEDS: CYANOCOBALAMIN 500 MCG TABLET PO SCH (15:30)
[2018-07-23] MEDS: ISOSORBIDE MONONITRATE 30 MG TABLET PO SCH (15:30)
[2018-07-23] MEDS: FERROUS SULFATE 325 MG TABLET PO SCH (15:30)
[2018-07-23] MEDS: amLODIPine 10 MG TABLET PO SCH (15:30)
[2018-07-23] MEDS: CARVEDILOL 25 MG TABLET PO SCH ×2 (15:30→21:39)
[2018-07-23] MEDS: APIXABAN 2.5 MG TABLET PO SCH ×2 (15:30→21:40)
[2018-07-23] MEDS: DOCUSATE SODIUM 100 MG CAPSULE PO SCH ×2 (15:30→21:39)
[2018-07-23] MEDS: traMADol 50 MG TABLET PO PRN (15:31)
[2018-07-23] MEDS: hydrALAZINE 10 MG TABLET PO SCH ×2 (15:31→21:39)
[2018-07-23] MEDS: DESITIN 4OZ/NYSTATIN 15 GRAM MIXTURE PASTE TOP SCH ×2 (15:43→21:41)
[2018-07-23] MEDS: ZINC OXIDE PASTE 113 GM TUBE TOP SCH ×2 (15:43→21:40)
[2018-07-23] MEDS: ROSUVASTATIN 20 MG TABLET PO SCH (21:39)
[2018-07-23] MEDS: INSULIN GLARGINE 100 UNIT/ML SUBCUT SCH (21:40)
[2018-07-24] MEDS: ALBUTEROL/IPRATROPIUM 3 ML NEB RESP TX SCH ×4 (01:18→20:15)
[2018-07-24] MEDS: LINEZOLID INJ 600 MG in PREMIX 1 EACH IV SCH ×2 (04:29→16:51)
[2018-07-24] MEDS: INSULIN REGULAR 100 UNIT/ML SUBCUT SCH ×4 (09:46→21:02)
[2018-07-24] MEDS: traMADol 50 MG TABLET PO PRN ×2 (10:52→21:43)
[2018-07-24] MEDS: ACETAMINOPHEN 325 MG TABLET PO PRN (13:07)
[2018-07-24] MEDS ORDERED: SODIUM CHLORIDE 0.9% 1,000 ML IV SCH (13:30)
[2018-07-24] MEDS: FERROUS SULFATE 325 MG TABLET PO SCH (14:17)
[2018-07-24] MEDS: FUROSEMIDE 40 MG TABLET PO SCH (14:18)
[2018-07-24] MEDS: hydrALAZINE 10 MG TABLET PO SCH ×2 (14:18→21:43)
[2018-07-24] MEDS: ISOSORBIDE MONONITRATE 30 MG TABLET PO SCH (14:18)
[2018-07-24] MEDS: PANTOPRAZOLE 40 MG TABLET PO SCH (14:18)
[2018-07-24] MEDS: CYANOCOBALAMIN 500 MCG TABLET PO SCH (14:18)
[2018-07-24] MEDS: amLODIPine 10 MG TABLET PO SCH (14:18)
[2018-07-24] MEDS: CARVEDILOL 25 MG TABLET PO SCH ×2 (14:18→21:44)
[2018-07-24] MEDS: APIXABAN 2.5 MG TABLET PO SCH ×2 (14:19→21:43)
[2018-07-24] MEDS: DOCUSATE SODIUM 100 MG CAPSULE PO SCH ×2 (14:19→21:44)
[2018-07-24] MEDS: ASPIRIN EC 81 MG TABLET PO SCH (14:19)
[2018-07-24] MEDS: GABAPENTIN 100 MG CAPSULE PO SCH ×3 (14:20→21:43)
[2018-07-24] MEDS: DESITIN 4OZ/NYSTATIN 15 GRAM MIXTURE PASTE TOP SCH ×2 (14:48→23:16)
[2018-07-24] MEDS: SODIUM CHLORIDE 0.9% 250 ML IV SCH ×2 (14:48→23:21)
[2018-07-24] MEDS: ZINC OXIDE PASTE 113 GM TUBE TOP SCH ×2 (14:48→23:15)
[2018-07-24] MEDS: ONDANSETRON 4 MG/2 ML VIAL IV PRN ×2 (15:14→21:48)
[2018-07-24] MEDS: CHLORHEXIDINE 4% SOLN 118 ML BOTTLE TOP SCH ×2 (18:03→23:56)
[2018-07-24] MEDS: ROSUVASTATIN 20 MG TABLET PO SCH (21:43)
[2018-07-24] MEDS: INSULIN GLARGINE 100 UNIT/ML SUBCUT SCH (21:45)
[2018-07-24] MEDS: CHLORHEXIDINE 0.12% ORAL RINSE 60 ML BOTTLE SWISH/SPIT SCH (23:15)
[2018-07-25] MEDS: ALBUTEROL/IPRATROPIUM 3 ML NEB RESP TX SCH ×2 (01:18→07:55)
[2018-07-25] MEDS: LINEZOLID INJ 600 MG in PREMIX 1 EACH IV SCH (04:02)
[2018-07-25 04:03] LABS: ABG Base Excess 1.4 MMOL/L (-2.5-2.5); ABG HCO3 25.7 MMOL/L (20-26); ABG Oxygen Saturation 95.5 % (95-100); ABG PCO2 43.3 MM HG (35-48); ABG PH 7.395 (7.35-7.45); ABG PO2 72.5 MM HG (80-95); ABG TCO2 24.4 MMOL/L (23-27); Allen Test Positive; Pt O2 Delivery Device Room Air
[2018-07-25] MEDS ORDERED: VANCOMYCIN 1,000 MG VIAL ONE (04:25)
[2018-07-25] MEDS ORDERED: TISSUE ADHESIVE 1 EACH APPLICATOR TOP ONE (04:25)
[2018-07-25 05:31] LABS: Basophils % 0.7 % (0.0-0.8); Eosinophils # 0.5 10*3/uL (0.0-0.87); Eosinophils % 9.1 % (0.00-10.9); Hematocrit 27.3 VOL% (35.7-47.0); Hemoglobin 8.7 GM/DL (12.0-16.0); Immature Granulocytes % 0.2 %; Immature Granulocytes Absolute 0.01 #; Lymphocytes # 1.6 10*3/uL (1.4-4.0); Lymphocytes % 27.8 % (21.3-54.2); Mean Corpuscular HGB Conc 31.9 GM/DL (32-36); Mean Corpuscular Hemoglobin 28 PG (27-34); Mean Corpuscular Volume 87.8 FL (87-102); Mean Platelet Volume 9.8 FL (9.6-12.0); Monocytes # 0.4 10*3/uL (0.11-0.8); Monocytes % 7.7 % (1.7-12.7); Neutrophils % 54.5 % (38.7-73.9); Platelet Count 106 T/CUMM (130-400); Red Blood Count 3.11 MC/CUMM (3.8-5.5); Red Cell Distribution Width 12.8 % (9.3-17.3); White Blood Count 5.6 T/CUMM (4-12)
[2018-07-25 05:53] LABS: Alanine Aminotransferase 16 U/L (13-56); Albumin 2.6 G/DL (3.4-5.0); Alkaline Phosphatase 58 U/L (45-117); Aspartate Amino Transferase 11 U/L (0-37); Bilirubin,Total < 0.39 MG/DL (0.2-1.0); Blood Urea Nitrogen 43 MG/DL (7-18); Glucose 146 MG/DL (74-106); Potassium 3.9 MMOL/L (3.5-5.1); Sodium 136 MMOL/L (136-145)
[2018-07-25] MEDS: amLODIPine 10 MG TABLET PO SCH ×2 (05:55→11:12)
[2018-07-25] MEDS: hydrALAZINE 10 MG TABLET PO SCH ×2 (05:56→11:10)
[2018-07-25] MEDS: CARVEDILOL 25 MG TABLET PO SCH ×2 (05:56→11:11)
[2018-07-25] MEDS ORDERED: CEFUROXIME INJ 1,500 MG in SYRINGE 1 EACH IV ONE (06:00)
[2018-07-25] MEDS ORDERED: DIAZEPAM 5 MG TABLET PO ONE (06:00)
[2018-07-25] MEDS ORDERED: ePHEDrine 50 MG/ML AMP ONE (06:39)
[2018-07-25] MEDS ORDERED: POTASSIUM CHLORIDE RIDER 0 ML IV ONE (07:36)
[2018-07-25] MEDS ORDERED: CALCIUM CHLORIDE 1,000 MG/10 ML SYRINGE IV ONE (07:36)
[2018-07-25] MEDS ORDERED: PHENYLEPHRINE DRIP 40 MG/250 ML PREMIX IV ONE ×2 (07:36→15:08)
[2018-07-25 07:51] LABS: ABG Base Excess 0.1 MMOL/L (-2.5-2.5); ABG HCO3 24.5 MMOL/L (20-26); ABG Oxygen Saturation 99.9 % (95-100); ABG PCO2 37.8 MM HG (35-48); ABG PH 7.418 (7.35-7.45); ABG TCO2 22.7 MMOL/L (23-27); Glucose Heart Surgery 96 MG/DL (74-106); Hematocrit Heart Surgery 25.8 PERCENT (37-47); Hemoglobin Heart Surgery 8.3 G/DL (12.0-16.0); Ionized Calcium Arterial 1.23 MMOL/L (1.21-1.46); PCO2 Patient Temp Arterial 37.8 MMHG; PH Patient Temp Arterial 7.418; Patient Temperature 37 CELCIUS; Potassium Heart/CVR 3.6 MMOL/L (3.5-5.1); Sodium Heart/CVR 134 MMOL/L (135-145)
[2018-07-25 08:35] LABS: Amorphous Crystals,Urine Few /HPF (Few); Apearance,Urine CLOUDY (Clear); Bilirubin,Urine Negative (Negative); Blood, Urine Small mg/dL (Negative); Glucose,Urine (UA) 50 mg/dL (Negative); Ketones,Urine Negative (Negative); Nitrite,Urine Negative (Negative); Protein,Urine >=500 MG/DL; Urine Color Yellow (Yellow); Urine Specific Gravity 1.009 (1.001-1.035); Urine Urobilinogen < 2.0 EU/DL (0.2-1.0); WBC,Urine 4 /HPF (0-6)
[2018-07-25] MEDS ORDERED: CALCIUM CHLORIDE 1,000 MG/10 ML VIAL IV ONE ×2 (08:39→13:32)
[2018-07-25] MEDS ORDERED: PHENYLEPHRINE DRIP 20 MG/250 ML PREMIX IV ONE (08:40)
[2018-07-25] MEDS ORDERED: MINERAL OIL/PETROLATUM OPH OINT 3.5 GM TUBE ONE (08:40)
[2018-07-25] MEDS ORDERED: NITROGLYCERIN DRIP 50 MG/250 ML BOTTLE IV ONE (08:40)
[2018-07-25] MEDS ORDERED: ETOMIDATE 40 MG/20 ML VIAL IV ONE (08:40)
[2018-07-25] MEDS ORDERED: VECURONIUM 10 MG VIAL IV ONE (08:40)
[2018-07-25] MEDS ORDERED: MIDAZOLAM 10 MG/2 ML VIAL ONE (08:40)
[2018-07-25] MEDS ORDERED: HEPARIN/NACL 0.9% 2 UNITS/ML 500 ML IV ONE (08:40)
[2018-07-25 08:58] LABS: Hematocrit Heart Surgery 30.5 PERCENT (37-47); Hemoglobin Heart Surgery 9.9 G/DL (12.0-16.0); PH Patient Temp Venous 7.447; PO2 Patient Temp Venous 45.1 MM HG; Potassium Heart/CVR 4.1 MMOL/L (3.5-5.1); VBG Base Excess -1.3 MEQ/L (0-4); VBG HCO3 23.2 MEQ/L (24-28); VBG Oxygen Saturation 91.1 %; VBG PCO2 37.1 MMHG (41-51); VBG PH 7.403; VBG PO2 55.3 MMHG (17-40)
[2018-07-25 09:18] LABS: Hematocrit Heart Surgery 23.9 PERCENT (37-47); Hemoglobin Heart Surgery 7.7 G/DL (12.0-16.0); PH Patient Temp Venous 7.484; PO2 Patient Temp Venous 53.3 MM HG; Potassium Heart/CVR 3.3 MMOL/L (3.5-5.1); VBG Base Excess -3.1 MEQ/L (0-4); VBG HCO3 21.8 MEQ/L (24-28); VBG Oxygen Saturation 95.9 %; VBG PCO2 31.6 MMHG (41-51); VBG PH 7.425; VBG PO2 68.7 MMHG (17-40)
[2018-07-25 09:48] LABS: Hematocrit Heart Surgery 23.5 PERCENT (37-47); Hemoglobin Heart Surgery 7.5 G/DL (12.0-16.0); PCO2 Patient Temp Venous 25.4 MM HG; PH Patient Temp Venous 7.536; PO2 Patient Temp Venous 38.7 MM HG; Potassium Heart/CVR 3.5 MMOL/L (3.5-5.1); VBG Base Excess -0.5 MEQ/L (0-4); VBG HCO3 23.9 MEQ/L (24-28); VBG Oxygen Saturation 90.5 %; VBG PCO2 30.8 MMHG (41-51); VBG PH 7.475; VBG PO2 50.8 MMHG (17-40)
[2018-07-25 10:16] LABS: Hematocrit Heart Surgery 24.4 PERCENT (37-47); Hemoglobin Heart Surgery 7.8 G/DL (12.0-16.0); PCO2 Patient Temp Venous 27.1 MM HG; PH Patient Temp Venous 7.543; PO2 Patient Temp Venous 36.9 MM HG; Potassium Heart/CVR 3.7 MMOL/L (3.5-5.1); VBG Base Excess 1.4 MEQ/L (0-4); VBG HCO3 25.6 MEQ/L (24-28); VBG Oxygen Saturation 89.2 %; VBG PCO2 32.8 MMHG (41-51); VBG PH 7.483; VBG PO2 48.6 MMHG (17-40)
[2018-07-25] MEDS ORDERED: MANNITOL 100 GM/500 ML BAG IV ONE (11:04)
[2018-07-25] MEDS ORDERED: SODIUM BICARBONATE 50 MEQ/50 ML SYRINGE IV ONE (11:04)
[2018-07-25] MEDS ORDERED: DEXTROSE 5% KCL 20 MEQ 20 MEQ/1,000 ML BAG IV ONE (11:04)
[2018-07-25] MEDS ORDERED: MAGNESIUM SULFATE 10 GM/20 ML VIAL IV ONE (11:05)
[2018-07-25] MEDS ORDERED: ALBUMIN 25% 25 GM/100 ML VIAL IV ONE (11:05)
[2018-07-25] MEDS ORDERED: FUROSEMIDE 20 MG/2 ML VIAL ONE (11:05)
[2018-07-25] MEDS ORDERED: methylPREDNISolone SOD SUC 1,000 MG/8 ML VIAL ONE (11:05)
[2018-07-25] MEDS ORDERED: POTASSIUM CHLORIDE 20 MEQ/10 ML VIAL ONE (11:05)
[2018-07-25] MEDS ORDERED: HEPARIN 10,000 UNIT/10 ML VIAL ONE (11:05)
[2018-07-25] MEDS ORDERED: ALBUMIN 5% 12.5 GM/250 ML VIAL IV ONE ×2 (11:05→12:40)
[2018-07-25] MEDS ORDERED: THROMBIN TOPICAL (RECOMBINANT) 5,000 UNIT VIAL TOP ONE (11:05)
[2018-07-25] MEDS: ASPIRIN EC 81 MG TABLET PO SCH (11:10)
[2018-07-25] MEDS: FERROUS SULFATE 325 MG TABLET PO SCH (11:10)
[2018-07-25] MEDS: INSULIN REGULAR 100 UNIT/ML SUBCUT SCH ×2 (11:10→16:29)
[2018-07-25] MEDS: DOCUSATE SODIUM 100 MG CAPSULE PO SCH (11:11)
[2018-07-25] MEDS: ZINC OXIDE PASTE 113 GM TUBE TOP SCH (11:11)
[2018-07-25] MEDS: APIXABAN 2.5 MG TABLET PO SCH (11:11)
[2018-07-25] MEDS: ERGOCALCIFEROL 50,000 UNIT CAPSULE PO SCH (11:11)
[2018-07-25] MEDS: FOLIC ACID 0.4 MG TABLET PO SCH (11:11)
[2018-07-25 11:12] LABS: ABG Base Excess -3.9 MMOL/L (-2.5-2.5); ABG HCO3 21.2 MMOL/L (20-26); ABG Oxygen Saturation 99.6 % (95-100); ABG PCO2 36.4 MM HG (35-48); ABG PH 7.368 (7.35-7.45); ABG TCO2 19.6 MMOL/L (23-27); Glucose Heart Surgery 202 MG/DL (74-106); Hematocrit Heart Surgery 24.8 PERCENT (37-47); Ionized Calcium Arterial 1.21 MMOL/L (1.21-1.46); PCO2 Patient Temp Arterial 36.4 MMHG; PH Patient Temp Arterial 7.368; Patient Temperature 37 CELCIUS; Potassium Heart/CVR 4.2 MMOL/L (3.5-5.1); Sodium Heart/CVR 134 MMOL/L (135-145)
[2018-07-25] MEDS: FUROSEMIDE 40 MG TABLET PO SCH (11:12)
[2018-07-25] MEDS: CHLORHEXIDINE 0.12% ORAL RINSE 60 ML BOTTLE SWISH/SPIT SCH ×2 (11:12→21:38)
[2018-07-25] MEDS: PANTOPRAZOLE 40 MG TABLET PO SCH (11:12)
[2018-07-25] MEDS: CHLORHEXIDINE 4% SOLN 118 ML BOTTLE TOP SCH (11:12)
[2018-07-25] MEDS: ISOSORBIDE MONONITRATE 30 MG TABLET PO SCH (11:12)
[2018-07-25] MEDS: GABAPENTIN 100 MG CAPSULE PO SCH (11:12)
[2018-07-25] MEDS: DESITIN 4OZ/NYSTATIN 15 GRAM MIXTURE PASTE TOP SCH (11:13)
[2018-07-25] MEDS: CYANOCOBALAMIN 500 MCG TABLET PO SCH (11:13)
[2018-07-25] MEDS: SODIUM CHLORIDE 0.9% 250 ML IV SCH (11:13)
[2018-07-25] MEDS ORDERED: EPINEPHrine 1 MG/ML VIAL ONE ×2 (11:41→13:32)
[2018-07-25] MEDS ORDERED: CALCIUM CHLORIDE 1,000 MG/10 ML SYRINGE IV PRN (12:23)
[2018-07-25] MEDS ORDERED: POTASSIUM CHLORIDE RIDER 10 MEQ in PREMIX 1 EACH IV PRN (12:23)
[2018-07-25] MEDS ORDERED: INSULIN REGULAR 100 UNIT/ML IV PRN (12:23)
[2018-07-25] MEDS ORDERED: MIDAZOLAM 2 MG/2 ML VIAL IV PRN (12:23)
[2018-07-25] MEDS ORDERED: MAGNESIUM SULF RIDER 2 GM in PREMIX 1 EACH IV PRN (12:23)
[2018-07-25] MEDS ORDERED: CHLORHEXIDINE 4% SOLN 118 ML BOTTLE TOP PRN (12:23)
[2018-07-25] MEDS ORDERED: DEXTROSE 50% 25 GM/50 ML SYRINGE IV PRN ×2 (12:23)
[2018-07-25] MEDS ORDERED: MAGNESIUM SULF RIDER 4 GM in PREMIX 1 EACH IV PRN (12:23)
[2018-07-25] MEDS ORDERED: MORPHINE 10 MG/1 ML VIAL IV PRN (12:23)
[2018-07-25] MEDS ORDERED: SODIUM CHLORIDE 0.9% 250 ML IV PRN (12:23)
[2018-07-25] MEDS ORDERED: ACETAMINOPHEN 650 MG SUPP RECTAL PRN (12:23)
[2018-07-25] MEDS ORDERED: POTASSIUM CHLORIDE RIDER 20 MEQ in PREMIX 1 EACH IV PRN (12:23)
[2018-07-25] MEDS ORDERED: SODIUM CHLORIDE 0.45% 1,000 ML IV SCH ×2 (12:30)
[2018-07-25] MEDS: PHENYLEPHRINE DRIP 40 MG/250 ML PREMIX IV PRN ×2 (12:30→15:10)
[2018-07-25 13:18] LABS: ABG Base Excess -8.9 MMOL/L (-2.5-2.5); ABG HCO3 17.1 MMOL/L (20-26); ABG Oxygen Saturation 97.6 % (95-100); ABG PH 7.309 (7.35-7.45); ABG PO2 88.9 MM HG (80-95); Glucose Heart Surgery 383 MG/DL (74-106); Potassium Heart/CVR 4.3 MMOL/L (3.5-5.1)
[2018-07-25 13:22] LABS: Basophils % 0.1 % (0.0-0.8); Eosinophils # 0.1 10*3/uL (0.0-0.87); Eosinophils % 1.3 % (0.00-10.9); Hematocrit Heart Surgery 17.7 PERCENT (37-47); Hemoglobin Heart Surgery 5.6 G/DL (12.0-16.0); Immature Granulocytes % 1.2 %; Immature Granulocytes Absolute 0.12 #; Mean Corpuscular HGB Conc 33.1 GM/DL (32-36); Mean Corpuscular Hemoglobin 29 PG (27-34); Mean Corpuscular Volume 87.9 FL (87-102); Mean Platelet Volume 10.8 FL (9.6-12.0); Monocytes # 0.4 10*3/uL (0.11-0.8); Monocytes % 4.2 % (1.7-12.7); Neutrophils # 8.4 10*3/uL (1.4-7.4); Neutrophils % 83.2 % (38.7-73.9); Platelet Count 91 T/CUMM (130-400); Red Blood Count 1.82 MC/CUMM (3.8-5.5); Red Cell Distribution Width 15.9 % (9.3-17.3); White Blood Count 10.1 T/CUMM (4-12)
[2018-07-25 13:28] LABS: Hemoglobin 5.3 GM/DL (12.0-16.0)
[2018-07-25] MEDS ORDERED: SEVOFLURANE 1 UNIT/15 MINUTE INH ONE (13:32)
[2018-07-25] MEDS ORDERED: GLYCOPYRROLATE 0.4 MG/2 ML VIAL ONE (13:32)
[2018-07-25] MEDS ORDERED: SODIUM CHLORIDE 0.9% 250 ML IV ONE ×2 (13:32→13:34)
[2018-07-25] MEDS ORDERED: SODIUM CHLORIDE 0.9% 2,000 ML IV ONE (13:32)
[2018-07-25] MEDS ORDERED: LACTATED RINGERS 1,000 ML IV ONE (13:32)
[2018-07-25] MEDS ORDERED: AMINOCAPROIC ACID 5,000 MG/20 ML VIAL ONE (13:34)
[2018-07-25 13:36] LABS: INR 1.3; PT Patient Result 14.3 SECS; Partial Thromboplastin Time 31.3 SECS (0-40)
[2018-07-25 13:44] LABS: Blood Urea Nitrogen 37 MG/DL (7-18); Calcium 7.5 MG/DL (8.5-10.1); Glucose 394 MG/DL (74-106); Osmolality,Calculated 299.7 MOS/KG (273-304); Potassium 4.5 MMOL/L (3.5-5.1); Sodium 138 MMOL/L (136-145)
[2018-07-25] MEDS: ALBUMIN 5% 12.5 GM in PREMIX 1 EACH IV PRN (13:57)
[2018-07-25] MEDS: INSULIN REGULAR DRIP 100 ML IV SCH ×2 (13:57→23:28)
[2018-07-25] MEDS ORDERED: CALCIUM GLUCONATE 1,000 MG in SODIUM CHLORIDE 0.9% 100 ML IV ONE (14:00)
[2018-07-25] MEDS ORDERED: SODIUM CHLORIDE 0.9% 1,000 ML IV PRN (14:02)
[2018-07-25] MEDS ORDERED: PROTHROMBIN COMPLEX IV ONE ×2 (14:15→14:30)
[2018-07-25] MEDS: SODIUM CHLORIDE 0.45% 1,000 ML IV SCH (17:01)
[2018-07-25] MEDS: MORPHINE 4 MG/1 ML VIAL IV PRN (18:52)
[2018-07-25 19:08] LABS: Hematocrit 38.8 VOL% (35.7-47.0); Hemoglobin 12.9 GM/DL (12.0-16.0)
[2018-07-25] MEDS: CEFUROXIME INJ 1,500 MG in SYRINGE 1 EACH IV SCH (19:48)
[2018-07-26 04:15] LABS: Basophils % 0.1 % (0.0-0.8); Hematocrit 35.3 VOL% (35.7-47.0); Hemoglobin 11.9 GM/DL (12.0-16.0); Immature Granulocytes % 0.3 %; Immature Granulocytes Absolute 0.04 #; Lymphocytes # 1.8 10*3/uL (1.4-4.0); Lymphocytes % 13.1 % (21.3-54.2); Mean Corpuscular HGB Conc 33.7 GM/DL (32-36); Mean Corpuscular Hemoglobin 28 PG (27-34); Mean Corpuscular Volume 82.5 FL (87-102); Mean Platelet Volume 10.8 FL (9.6-12.0); Monocytes # 0.6 10*3/uL (0.11-0.8); Monocytes % 4.2 % (1.7-12.7); Neutrophils # 11.5 10*3/uL (1.4-7.4); Neutrophils % 82.3 % (38.7-73.9); Platelet Count 45 T/CUMM (130-400); Red Blood Count 4.28 MC/CUMM (3.8-5.5); Red Cell Distribution Width 17.1 % (9.3-17.3)
[2018-07-26 04:22] LABS: Calcium 8.3 MG/DL (8.5-10.1); Osmolality,Calculated 290.4 MOS/KG (273-304); Potassium 4.4 MMOL/L (3.5-5.1)
[2018-07-26 07:44] LABS: Band Neutrophils 2 % (0-10); Lymphocytes 13 % (20-55); Segmented Neutrophils 85 % (50-85); Total Cells Counted 100
[2018-07-26 07:45] LABS: Hypochromasia 1+; Microcytosis Slight; Ovalocytes Slight; Platelet Estimate Decreased; Target Cells Slight
[2018-07-26] MEDS ORDERED: DEXTROSE 50% 25 GM/50 ML SYRINGE IV PRN (07:54)
[2018-07-26] MEDS ORDERED: INSULIN REGULAR 100 UNIT/ML SUBCUT PRN (08:00)
[2018-07-26] MEDS: CEFUROXIME INJ 1,500 MG in SYRINGE 1 EACH IV SCH ×2 (08:15→19:38)
[2018-07-26 08:43] LABS: ABG Base Excess -7.9 MMOL/L (-2.5-2.5); ABG HCO3 17.2 MMOL/L (20-26); ABG Oxygen Saturation 95.9 % (95-100); ABG PCO2 33.3 MM HG (35-48); ABG PO2 86.4 MM HG (80-95); ABG TCO2 18.2 MMOL/L (23-27); Glucose Heart Surgery 112 MG/DL (74-106); Hemoglobin Heart Surgery 10.8 G/DL (12.0-16.0); Potassium Heart/CVR 4.4 MMOL/L (3.5-5.1)
[2018-07-26] MEDS: FUROSEMIDE 40 MG TABLET PO SCH (09:03)
[2018-07-26] MEDS: PANTOPRAZOLE 40 MG VIAL IV SCH (09:03)
[2018-07-26] MEDS: CHLORHEXIDINE 0.12% ORAL RINSE 60 ML BOTTLE SWISH/SPIT SCH ×2 (09:03→20:37)
[2018-07-26] MEDS: ASPIRIN EC 325 MG TABLET PO SCH (09:03)
[2018-07-26] MEDS: MORPHINE 4 MG/1 ML VIAL IV PRN ×3 (10:59→17:25)
[2018-07-26] MEDS: ALBUMIN 5% 12.5 GM in PREMIX 1 EACH IV PRN ×4 (12:36→14:34)
[2018-07-26] MEDS: PHENYLEPHRINE DRIP 40 MG/250 ML PREMIX IV PRN ×2 (12:36→23:27)
[2018-07-26 13:47] LABS: ABG Base Excess -10.3 MMOL/L (-2.5-2.5); ABG HCO3 16.2 MMOL/L (20-26); ABG Oxygen Saturation 96.6 % (95-100); ABG PCO2 31.6 MM HG (35-48); ABG PH 7.293 (7.35-7.45); ABG PO2 86.5 MM HG (80-95); ABG TCO2 14.1 MMOL/L (23-27)
[2018-07-26] MEDS ORDERED: SODIUM BICARBONATE 50 MEQ/50 ML SYRINGE IV ONE ×2 (14:00→14:04)
[2018-07-26] MEDS ORDERED: FUROSEMIDE 40 MG/4 ML VIAL IV ONE (14:29)
[2018-07-26] MEDS ORDERED: LIDOCAINE 1%/EPI INJ 20 ML VIAL MISC INJ ONE (16:05)
[2018-07-26 19:41] LABS: ABG HCO3 20.3 MMOL/L (20-26); ABG Oxygen Saturation 97.5 % (95-100); ABG PCO2 38.1 MM HG (35-48); ABG PH 7.337 (7.35-7.45); ABG PO2 94.3 MM HG (80-95); ABG TCO2 19.2 MMOL/L (23-27); Glucose Heart Surgery 106 MG/DL (74-106); Hematocrit Heart Surgery 23.5 PERCENT (37-47); Hemoglobin Heart Surgery 7.5 G/DL (12.0-16.0); Potassium Heart/CVR 4.1 MMOL/L (3.5-5.1)
[2018-07-26] MEDS: ATORVASTATIN 40 MG TABLET PO SCH (20:37)
[2018-07-26] MEDS: SODIUM CHLORIDE 0.45% 1,000 ML IV SCH (21:30)
[2018-07-26 22:21] LABS: ABG Base Excess -5.2 MMOL/L (-2.5-2.5); ABG HCO3 20.1 MMOL/L (20-26); ABG Oxygen Saturation 98.3 % (95-100); ABG PCO2 37.4 MM HG (35-48); ABG PH 7.339 (7.35-7.45); ABG TCO2 18.7 MMOL/L (23-27); Glucose Heart Surgery 113 MG/DL (74-106); Hematocrit Heart Surgery 27.1 PERCENT (37-47); Hemoglobin Heart Surgery 8.7 G/DL (12.0-16.0); Potassium Heart/CVR 4.1 MMOL/L (3.5-5.1)
[2018-07-27] MEDS: MORPHINE 4 MG/1 ML VIAL IV PRN ×3 (01:03→18:12)
[2018-07-27 03:57] LABS: Basophils % 0.1 % (0.0-0.8); Hematocrit 24.1 VOL% (35.7-47.0); Hemoglobin 8.1 GM/DL (12.0-16.0); Immature Granulocytes % 0.3 %; Immature Granulocytes Absolute 0.02 #; Lymphocytes # 0.8 10*3/uL (1.4-4.0); Mean Corpuscular HGB Conc 33.6 GM/DL (32-36); Mean Corpuscular Hemoglobin 28 PG (27-34); Mean Corpuscular Volume 84.6 FL (87-102); Mean Platelet Volume 13.5 FL (9.6-12.0); Monocytes # 0.5 10*3/uL (0.11-0.8); Monocytes % 6.1 % (1.7-12.7); Neutrophils # 6.2 10*3/uL (1.4-7.4); Neutrophils % 82.5 % (38.7-73.9); Red Blood Count 2.85 MC/CUMM (3.8-5.5); Red Cell Distribution Width 17.2 % (9.3-17.3); White Blood Count 7.5 T/CUMM (4-12)
[2018-07-27 03:59] LABS: Platelet Count 23 T/CUMM (130-400)
[2018-07-27 04:11] LABS: Calcium 8.4 MG/DL (8.5-10.1); Osmolality,Calculated 308.8 MOS/KG (273-304); Potassium 4.1 MMOL/L (3.5-5.1)
[2018-07-27 04:45] LABS: Hematocrit 23.7 VOL% (35.7-47.0); Hemoglobin 7.9 GM/DL (12.0-16.0); Immature Granulocytes % 0.7 %; Immature Granulocytes Absolute 0.05 #; Lymphocytes # 0.9 10*3/uL (1.4-4.0); Lymphocytes % 11.5 % (21.3-54.2); Mean Corpuscular HGB Conc 33.3 GM/DL (32-36); Mean Corpuscular Hemoglobin 28 PG (27-34); Mean Corpuscular Volume 84.6 FL (87-102); Mean Platelet Volume 11.1 FL (9.6-12.0); Monocytes # 0.5 10*3/uL (0.11-0.8); Monocytes % 6.8 % (1.7-12.7); Neutrophils # 6.1 10*3/uL (1.4-7.4); Red Cell Distribution Width 17.1 % (9.3-17.3); White Blood Count 7.5 T/CUMM (4-12)
[2018-07-27 04:48] LABS: Platelet Count 23 T/CUMM (130-400)
[2018-07-27 05:58] LABS: Hypochromasia Slight; Platelet Estimate Decreased
[2018-07-27 05:59] LABS: Ovalocytes 1+; Target Cells Few
[2018-07-27 06:53] LABS: Hypochromasia Slight
[2018-07-27 06:54] LABS: Microcytosis Slight; Platelet Estimate Decreased; Polychromasia Slight
[2018-07-27 07:19] LABS: ABG Base Excess -3.8 MMOL/L (-2.5-2.5); ABG HCO3 21.2 MMOL/L (20-26); ABG Oxygen Saturation 98.4 % (95-100); ABG PH 7.341 (7.35-7.45); ABG TCO2 20.4 MMOL/L (23-27); Glucose Heart Surgery 120 MG/DL (74-106); Hematocrit Heart Surgery 23.4 PERCENT (37-47); Hemoglobin Heart Surgery 7.5 G/DL (12.0-16.0); Potassium Heart/CVR 4.1 MMOL/L (3.5-5.1)
[2018-07-27] MEDS: ASPIRIN EC 325 MG TABLET PO SCH (08:09)
[2018-07-27] MEDS: FUROSEMIDE 40 MG TABLET PO SCH (08:09)
[2018-07-27] MEDS: PANTOPRAZOLE 40 MG VIAL IV SCH (08:09)
[2018-07-27] MEDS: CHLORHEXIDINE 0.12% ORAL RINSE 60 ML BOTTLE SWISH/SPIT SCH ×2 (08:09→20:40)
[2018-07-27] MEDS ORDERED: FUROSEMIDE 40 MG/4 ML VIAL IV ONE (08:18)
[2018-07-27] MEDS: methylPREDNISolone SOD SUC 40 MG/1 ML VIAL IV SCH ×2 (11:30→20:40)
[2018-07-27] MEDS: SODIUM CHLORIDE 0.45% 1,000 ML IV SCH (11:31)
[2018-07-27] MEDS ORDERED: cefTRIAXone 1,000 MG in SYRINGE 1 EACH IV SCH (12:00)
[2018-07-27] MEDS: ALBUTEROL 1.25 MG/3 ML NEB RESP TX SCH ×2 (12:05→19:11)
[2018-07-27 16:52] LABS: ABG Base Excess -3.9 MMOL/L (-2.5-2.5); ABG HCO3 21.1 MMOL/L (20-26); ABG Oxygen Saturation 94.3 % (95-100); ABG PCO2 39.8 MM HG (35-48); ABG PH 7.341 (7.35-7.45); ABG PO2 74.9 MM HG (80-95); ABG TCO2 19.9 MMOL/L (23-27); Glucose Heart Surgery 134 MG/DL (74-106); Hematocrit Heart Surgery 28.6 PERCENT (37-47); Hemoglobin Heart Surgery 9.2 G/DL (12.0-16.0); Potassium Heart/CVR 4.1 MMOL/L (3.5-5.1)
[2018-07-27] MEDS: ATORVASTATIN 40 MG TABLET PO SCH (20:40)
[2018-07-28] MEDS: ALBUTEROL 1.25 MG/3 ML NEB RESP TX SCH ×4 (00:05→19:03)
[2018-07-28] MEDS: methylPREDNISolone SOD SUC 40 MG/1 ML VIAL IV SCH (04:12)
[2018-07-28 04:47] LABS: Hematocrit 25.4 VOL% (35.7-47.0); Hemoglobin 8.4 GM/DL (12.0-16.0); Immature Granulocytes % 0.9 %; Immature Granulocytes Absolute 0.05 #; Lymphocytes # 0.5 10*3/uL (1.4-4.0); Lymphocytes % 8.3 % (21.3-54.2); Mean Corpuscular HGB Conc 33.1 GM/DL (32-36); Mean Corpuscular Hemoglobin 28 PG (27-34); Mean Corpuscular Volume 84.9 FL (87-102); Mean Platelet Volume 12.3 FL (9.6-12.0); Monocytes # 0.2 10*3/uL (0.11-0.8); Monocytes % 3.8 % (1.7-12.7); Neutrophils # 4.8 10*3/uL (1.4-7.4); Platelet Count 61 T/CUMM (130-400); Red Blood Count 2.99 MC/CUMM (3.8-5.5); Red Cell Distribution Width 16.9 % (9.3-17.3); White Blood Count 5.5 T/CUMM (4-12)
[2018-07-28 05:02] LABS: Calcium 8.3 MG/DL (8.5-10.1); Potassium 4.1 MMOL/L (3.5-5.1)
[2018-07-28 05:08] LABS: Band Neutrophils 1 % (0-10); Hypochromasia 1+; Lymphocytes 11 % (20-55); Ovalocytes Slight; Platelet Estimate Decreased; Segmented Neutrophils 87 % (50-85); Total Cells Counted 100
[2018-07-28 05:09] LABS: Microcytosis Slight
[2018-07-28] MEDS: PANTOPRAZOLE 40 MG VIAL IV SCH (09:29)
[2018-07-28] MEDS: FUROSEMIDE 40 MG TABLET PO SCH (09:29)
[2018-07-28] MEDS: CHLORHEXIDINE 0.12% ORAL RINSE 60 ML BOTTLE SWISH/SPIT SCH ×3 (09:37→22:42)
[2018-07-28] MEDS: ASPIRIN EC 325 MG TABLET PO SCH (12:01)
[2018-07-28] MEDS: CIPROFLOXACIN INJ 400 MG in PREMIX 1 EACH IV SCH (12:02)
[2018-07-28] MEDS ORDERED: HEPARIN 10,000 UNIT/10 ML VIAL IV PRN (14:19)
[2018-07-28] MEDS: ASPIRIN 325 MG TABLET PER TUBE SCH (17:32)
[2018-07-28] MEDS ORDERED: METOPROLOL TARTRATE 5 MG/5 ML VIAL IV STA (20:05)
[2018-07-28] MEDS: INSULIN REGULAR 100 UNIT/ML SUBCUT SCH ×2 (20:24→23:19)
[2018-07-28] MEDS: ATORVASTATIN 40 MG TABLET PO SCH (20:25)
[2018-07-28] MEDS ORDERED: METOPROLOL TARTRATE 25 MG TABLET PO SCH ×2 (21:00)
[2018-07-29] MEDS: ALBUTEROL 1.25 MG/3 ML NEB RESP TX SCH ×4 (01:10→19:21)
[2018-07-29] MEDS: INSULIN REGULAR 100 UNIT/ML SUBCUT SCH ×5 (04:11→21:26)
[2018-07-29 04:25] LABS: Basophils % 0.1 % (0.0-0.8); Immature Granulocytes % 0.8 %; Immature Granulocytes Absolute 0.06 #; Lymphocytes # 0.7 10*3/uL (1.4-4.0); Lymphocytes % 9.2 % (21.3-54.2); Mean Corpuscular HGB Conc 33.9 GM/DL (32-36); Mean Corpuscular Hemoglobin 28 PG (27-34); Mean Corpuscular Volume 83.1 FL (87-102); Mean Platelet Volume 11.7 FL (9.6-12.0); Monocytes # 0.9 10*3/uL (0.11-0.8); Monocytes % 12.7 % (1.7-12.7); Neutrophils # 5.5 10*3/uL (1.4-7.4); Neutrophils % 77.2 % (38.7-73.9); Red Cell Distribution Width 15.4 % (9.3-17.3)
[2018-07-29 04:37] LABS: Red Blood Count 3.97 MC/CUMM (3.8-5.5); White Blood Count 7.2 T/CUMM (4-12)
[2018-07-29 04:39] LABS: Albumin 3.1 G/DL (3.4-5.0); Calcium 8.3 MG/DL (8.5-10.1); Hemoglobin 11.2 GM/DL (12.0-16.0); Osmolality,Calculated 297.7 MOS/KG (273-304); Platelet Count 49 T/CUMM (130-400); Potassium 3.5 MMOL/L (3.5-5.1); Total Protein 5.7 G/DL (6.4-8.3); Uric Acid 4.2 MG/DL (2.6-6.0)
[2018-07-29 04:45] LABS: Platelet Estimate Decreased; Polychromasia Few
[2018-07-29] MEDS: FUROSEMIDE 40 MG TABLET PO SCH (08:10)
[2018-07-29] MEDS: ASPIRIN 325 MG TABLET PER TUBE SCH (08:10)
[2018-07-29] MEDS: METOPROLOL TARTRATE 50 MG TABLET PO SCH ×2 (08:11→22:16)
[2018-07-29] MEDS: CHLORHEXIDINE 0.12% ORAL RINSE 60 ML BOTTLE SWISH/SPIT SCH ×2 (08:11→22:16)
[2018-07-29] MEDS: GABAPENTIN 100 MG CAPSULE PO SCH (08:11)
[2018-07-29] MEDS: PANTOPRAZOLE 40 MG VIAL IV SCH (08:11)
[2018-07-29] MEDS: FOLIC ACID 0.4 MG TABLET PO SCH (08:40)
[2018-07-29] MEDS: CIPROFLOXACIN INJ 400 MG in PREMIX 1 EACH IV SCH (10:27)
[2018-07-29] MEDS: ATORVASTATIN 40 MG TABLET PO SCH (22:16)
[2018-07-29] MEDS: INSULIN GLARGINE 100 UNIT/ML SUBCUT SCH (23:28)
[2018-07-30] MEDS: ALBUTEROL 1.25 MG/3 ML NEB RESP TX SCH ×5 (00:59→23:54)
[2018-07-30] MEDS: INSULIN REGULAR 100 UNIT/ML SUBCUT SCH ×6 (01:10→22:14)
[2018-07-30 05:20] LABS: Basophils % 0.1 % (0.0-0.8); Hematocrit 34.8 VOL% (35.7-47.0); Hemoglobin 11.7 GM/DL (12.0-16.0); Immature Granulocytes % 0.9 %; Immature Granulocytes Absolute 0.08 #; Lymphocytes # 1.2 10*3/uL (1.4-4.0); Lymphocytes % 12.8 % (21.3-54.2); Mean Corpuscular HGB Conc 33.6 GM/DL (32-36); Mean Corpuscular Hemoglobin 28 PG (27-34); Mean Corpuscular Volume 83.5 FL (87-102); Mean Platelet Volume 12.2 FL (9.6-12.0); Monocytes # 1.1 10*3/uL (0.11-0.8); Monocytes % 12.2 % (1.7-12.7); Neutrophils # 6.8 10*3/uL (1.4-7.4); Platelet Count 48 T/CUMM (130-400); Red Blood Count 4.17 MC/CUMM (3.8-5.5); Red Cell Distribution Width 15.2 % (9.3-17.3); White Blood Count 9.2 T/CUMM (4-12)
[2018-07-30 05:34] LABS: Osmolality,Calculated 299.3 MOS/KG (273-304); Potassium 3.3 MMOL/L (3.5-5.1)
[2018-07-30 05:52] LABS: Hypochromasia 1+; Lymphocytes 18 % (20-55); Microcytosis Slight; Platelet Estimate Decreased; Segmented Neutrophils 75 % (50-85); Total Cells Counted 100
[2018-07-30] MEDS: PANTOPRAZOLE 40 MG VIAL IV SCH (09:18)
[2018-07-30] MEDS: FOLIC ACID 0.4 MG TABLET PO SCH (09:18)
[2018-07-30] MEDS: ASPIRIN 325 MG TABLET PER TUBE SCH (09:18)
[2018-07-30] MEDS: METOPROLOL TARTRATE 50 MG TABLET PO SCH (09:18)
[2018-07-30] MEDS: GABAPENTIN 100 MG CAPSULE PO SCH (09:18)
[2018-07-30] MEDS: FUROSEMIDE 40 MG TABLET PO SCH (09:18)
[2018-07-30] MEDS: CHLORHEXIDINE 0.12% ORAL RINSE 60 ML BOTTLE SWISH/SPIT SCH ×2 (09:19→22:15)
[2018-07-30] MEDS: amLODIPine 5 MG TABLET PO SCH (10:35)
[2018-07-30] MEDS: CIPROFLOXACIN INJ 400 MG in PREMIX 1 EACH IV SCH (10:35)
[2018-07-30] MEDS ORDERED: HEPARIN 10,000 UNIT/10 ML VIAL IV SCH (16:30)
[2018-07-30] MEDS: MORPHINE 4 MG/1 ML VIAL IV PRN (19:30)
[2018-07-30] MEDS ORDERED: CARVEDILOL 6.25 MG TABLET PO SCH (21:00)
[2018-07-30] MEDS: INSULIN GLARGINE 100 UNIT/ML SUBCUT SCH (22:14)
[2018-07-30] MEDS: ATORVASTATIN 40 MG TABLET PO SCH (22:15)
[2018-07-30] MEDS: ONDANSETRON 4 MG/2 ML VIAL IV PRN (22:18)
[2018-07-31] MEDS: INSULIN REGULAR 100 UNIT/ML SUBCUT SCH ×6 (00:32→22:01)
[2018-07-31 05:57] LABS: Calcium 8.7 MG/DL (8.5-10.1); Osmolality,Calculated 292.7 MOS/KG (273-304); Potassium 3.1 MMOL/L (3.5-5.1)
[2018-07-31] MEDS ORDERED: POTASSIUM CHLORIDE 20 MEQ TABLET PO ONE (07:22)
[2018-07-31] MEDS: ALBUTEROL 1.25 MG/3 ML NEB RESP TX SCH ×3 (07:33→19:30)
[2018-07-31] MEDS: GABAPENTIN 100 MG CAPSULE PO SCH (08:22)
[2018-07-31] MEDS: FUROSEMIDE 40 MG TABLET PO SCH (08:22)
[2018-07-31] MEDS: FOLIC ACID 0.4 MG TABLET PO SCH (08:22)
[2018-07-31] MEDS: ASPIRIN 325 MG TABLET PER TUBE SCH (08:22)
[2018-07-31] MEDS: CARVEDILOL 12.5 MG TABLET PO SCH ×2 (08:22→22:02)
[2018-07-31] MEDS: CHLORHEXIDINE 0.12% ORAL RINSE 60 ML BOTTLE SWISH/SPIT SCH ×2 (08:22→22:02)
[2018-07-31] MEDS: amLODIPine 5 MG TABLET PO SCH (08:22)
[2018-07-31] MEDS: PANTOPRAZOLE 40 MG VIAL IV SCH (08:22)
[2018-07-31] MEDS: CIPROFLOXACIN INJ 400 MG in PREMIX 1 EACH IV SCH (12:17)
[2018-07-31] MEDS ORDERED: POTASSIUM CHLORIDE 20 MEQ TABLET PO PRN (20:37)
[2018-07-31] MEDS: ATORVASTATIN 40 MG TABLET PO SCH (22:02)
[2018-07-31] MEDS: INSULIN GLARGINE 100 UNIT/ML SUBCUT SCH (22:02)
[2018-08-01] MEDS: INSULIN REGULAR 100 UNIT/ML SUBCUT SCH ×6 (00:05→21:29)
[2018-08-01] MEDS: ALBUTEROL 1.25 MG/3 ML NEB RESP TX SCH ×4 (02:32→19:50)
[2018-08-01 04:57] LABS: Basophils % 0.2 % (0.0-0.8); Eosinophils # 0.3 10*3/uL (0.0-0.87); Eosinophils % 2.4 % (0.00-10.9); Hematocrit 34.3 VOL% (35.7-47.0); Hemoglobin 11.2 GM/DL (12.0-16.0); Immature Granulocytes % 1.5 %; Immature Granulocytes Absolute 0.15 #; Lymphocytes # 1.5 10*3/uL (1.4-4.0); Lymphocytes % 14.7 % (21.3-54.2); Mean Corpuscular HGB Conc 32.7 GM/DL (32-36); Mean Corpuscular Hemoglobin 28 PG (27-34); Mean Corpuscular Volume 85.5 FL (87-102); Mean Platelet Volume 13.6 FL (9.6-12.0); Monocytes # 1.4 10*3/uL (0.11-0.8); Monocytes % 13.7 % (1.7-12.7); Neutrophils % 67.5 % (38.7-73.9); Platelet Count 44 T/CUMM (130-400); Red Blood Count 4.01 MC/CUMM (3.8-5.5); Red Cell Distribution Width 14.7 % (9.3-17.3); White Blood Count 10.3 T/CUMM (4-12)
[2018-08-01 05:13] LABS: Calcium 8.6 MG/DL (8.5-10.1); Osmolality,Calculated 298.8 MOS/KG (273-304); Potassium 3.6 MMOL/L (3.5-5.1)
[2018-08-01 05:51] LABS: Hypochromasia 1+; Microcytosis 1+; Ovalocytes Slight
[2018-08-01 05:52] LABS: Platelet Estimate Decreased
[2018-08-01] MEDS: traMADol 50 MG TABLET PO PRN ×2 (06:13→21:30)
[2018-08-01] MEDS: CARVEDILOL 12.5 MG TABLET PO SCH ×2 (14:12→21:30)
[2018-08-01] MEDS: CHLORHEXIDINE 0.12% ORAL RINSE 60 ML BOTTLE SWISH/SPIT SCH ×2 (14:12→21:30)
[2018-08-01] MEDS: FOLIC ACID 0.4 MG TABLET PO SCH (15:37)
[2018-08-01] MEDS: GABAPENTIN 100 MG CAPSULE PO SCH (15:37)
[2018-08-01] MEDS: ASPIRIN 325 MG TABLET PER TUBE SCH (15:37)
[2018-08-01] MEDS: amLODIPine 5 MG TABLET PO SCH (15:37)
[2018-08-01] MEDS: CIPROFLOXACIN INJ 400 MG in PREMIX 1 EACH IV SCH (15:38)
[2018-08-01] MEDS: PANTOPRAZOLE 40 MG VIAL IV SCH (15:38)
[2018-08-01] MEDS: FUROSEMIDE 40 MG TABLET PO SCH (15:38)
[2018-08-01] MEDS: ONDANSETRON 4 MG/2 ML VIAL IV PRN (18:48)
[2018-08-01] MEDS: INSULIN GLARGINE 100 UNIT/ML SUBCUT SCH (21:30)
[2018-08-01] MEDS: ATORVASTATIN 40 MG TABLET PO SCH (21:30)
[2018-08-02] MEDS: MORPHINE 4 MG/1 ML VIAL IV PRN (00:25)
[2018-08-02] MEDS: ONDANSETRON 4 MG/2 ML VIAL IV PRN (00:25)
[2018-08-02] MEDS: ALBUTEROL 1.25 MG/3 ML NEB RESP TX SCH ×4 (01:44→19:00)
[2018-08-02] MEDS: INSULIN REGULAR 100 UNIT/ML SUBCUT SCH ×6 (01:45→21:18)
[2018-08-02] MEDS: PANTOPRAZOLE 40 MG VIAL IV SCH (09:59)
[2018-08-02] MEDS: GABAPENTIN 100 MG CAPSULE PO SCH (10:00)
[2018-08-02] MEDS: ASPIRIN 325 MG TABLET PER TUBE SCH (10:00)
[2018-08-02] MEDS: CARVEDILOL 12.5 MG TABLET PO SCH ×2 (10:00→21:18)
[2018-08-02] MEDS: CHLORHEXIDINE 0.12% ORAL RINSE 60 ML BOTTLE SWISH/SPIT SCH ×2 (10:00→21:19)
[2018-08-02] MEDS: amLODIPine 5 MG TABLET PO SCH (10:00)
[2018-08-02] MEDS: FUROSEMIDE 40 MG TABLET PO SCH (10:00)
[2018-08-02] MEDS: FOLIC ACID 0.4 MG TABLET PO SCH (10:00)
[2018-08-02] MEDS: CIPROFLOXACIN INJ 400 MG in PREMIX 1 EACH IV SCH (12:46)
[2018-08-02] MEDS: traMADol 50 MG TABLET PO PRN (21:18)
[2018-08-02] MEDS: INSULIN GLARGINE 100 UNIT/ML SUBCUT SCH (21:18)
[2018-08-02] MEDS: ATORVASTATIN 40 MG TABLET PO SCH (21:18)
[2018-08-03] MEDS: ALBUTEROL 1.25 MG/3 ML NEB RESP TX SCH ×4 (00:40→18:50)
[2018-08-03] MEDS: INSULIN REGULAR 100 UNIT/ML SUBCUT SCH ×6 (04:02→22:23)
[2018-08-03 05:27] LABS: Calcium 8.5 MG/DL (8.5-10.1); Potassium 3.8 MMOL/L (3.5-5.1)
[2018-08-03] MEDS: FOLIC ACID 0.4 MG TABLET PO SCH (09:47)
[2018-08-03] MEDS: CARVEDILOL 12.5 MG TABLET PO SCH ×2 (09:47→22:22)
[2018-08-03] MEDS: amLODIPine 5 MG TABLET PO SCH (09:47)
[2018-08-03] MEDS: ASPIRIN 325 MG TABLET PER TUBE SCH (09:47)
[2018-08-03] MEDS: GABAPENTIN 100 MG CAPSULE PO SCH (09:47)
[2018-08-03] MEDS: PANTOPRAZOLE 40 MG VIAL IV SCH (09:47)
[2018-08-03] MEDS: FUROSEMIDE 40 MG TABLET PO SCH (09:48)
[2018-08-03] MEDS: CHLORHEXIDINE 0.12% ORAL RINSE 60 ML BOTTLE SWISH/SPIT SCH ×2 (09:48→22:23)
[2018-08-03] MEDS: CIPROFLOXACIN INJ 400 MG in PREMIX 1 EACH IV SCH (12:23)
[2018-08-03] MEDS: traMADol 50 MG TABLET PO PRN (22:21)
[2018-08-03] MEDS: ATORVASTATIN 40 MG TABLET PO SCH (22:22)
[2018-08-03] MEDS: INSULIN GLARGINE 100 UNIT/ML SUBCUT SCH (22:22)
[2018-08-04] MEDS: ALBUTEROL 1.25 MG/3 ML NEB RESP TX SCH ×4 (00:09→19:02)
[2018-08-04] MEDS: INSULIN REGULAR 100 UNIT/ML SUBCUT SCH ×6 (02:05→21:37)
[2018-08-04 05:30] LABS: Calcium 8.3 MG/DL (8.5-10.1)
[2018-08-04] MEDS: traMADol 50 MG TABLET PO PRN ×3 (06:19→21:44)
[2018-08-04] MEDS: amLODIPine 5 MG TABLET PO SCH (13:38)
[2018-08-04] MEDS: GABAPENTIN 100 MG CAPSULE PO SCH (13:38)
[2018-08-04] MEDS: ASPIRIN 325 MG TABLET PER TUBE SCH (13:38)
[2018-08-04] MEDS: CIPROFLOXACIN INJ 400 MG in PREMIX 1 EACH IV SCH (13:39)
[2018-08-04] MEDS: FOLIC ACID 0.4 MG TABLET PO SCH (13:39)
[2018-08-04] MEDS: CARVEDILOL 12.5 MG TABLET PO SCH ×2 (13:39→21:36)
[2018-08-04] MEDS: CHLORHEXIDINE 0.12% ORAL RINSE 60 ML BOTTLE SWISH/SPIT SCH ×2 (13:39→21:47)
[2018-08-04] MEDS: PANTOPRAZOLE 40 MG VIAL IV SCH (13:39)
[2018-08-04] MEDS: FUROSEMIDE 40 MG TABLET PO SCH (13:39)
[2018-08-04] MEDS: PARoxetine 20 MG TABLET PO SCH (19:07)
[2018-08-04] MEDS: ATORVASTATIN 40 MG TABLET PO SCH (21:36)
[2018-08-04] MEDS: INSULIN GLARGINE 100 UNIT/ML SUBCUT SCH (21:36)
[2018-08-05] MEDS: INSULIN REGULAR 100 UNIT/ML SUBCUT SCH ×6 (00:11→20:31)
[2018-08-05] MEDS: ALBUTEROL 1.25 MG/3 ML NEB RESP TX SCH ×4 (00:49→19:19)
[2018-08-05 04:22] LABS: Basophils % 0.2 % (0.0-0.8); Eosinophils # 0.4 10*3/uL (0.0-0.87); Eosinophils % 6.8 % (0.00-10.9); Hematocrit 29.9 VOL% (35.7-47.0); Hemoglobin 9.7 GM/DL (12.0-16.0); Immature Granulocytes % 0.8 %; Immature Granulocytes Absolute 0.05 #; Lymphocytes % 15.6 % (21.3-54.2); Mean Corpuscular HGB Conc 32.4 GM/DL (32-36); Mean Corpuscular Hemoglobin 28 PG (27-34); Mean Corpuscular Volume 86.9 FL (87-102); Mean Platelet Volume 12.2 FL (9.6-12.0); Monocytes # 0.9 10*3/uL (0.11-0.8); Monocytes % 14.2 % (1.7-12.7); Neutrophils % 62.4 % (38.7-73.9); Red Blood Count 3.44 MC/CUMM (3.8-5.5); Red Cell Distribution Width 14.9 % (9.3-17.3); White Blood Count 6.3 T/CUMM (4-12)
[2018-08-05 04:26] LABS: Platelet Count 72 T/CUMM (130-400)
[2018-08-05 04:34] LABS: Calcium 8.6 MG/DL (8.5-10.1); Osmolality,Calculated 289.1 MOS/KG (273-304); Potassium 4.1 MMOL/L (3.5-5.1)
[2018-08-05 04:43] LABS: Calcium 8.5 MG/DL (8.5-10.1); Potassium 4.2 MMOL/L (3.5-5.1)
[2018-08-05] MEDS: traMADol 50 MG TABLET PO PRN ×2 (05:57→21:24)
[2018-08-05] MEDS: PANTOPRAZOLE 40 MG VIAL IV SCH (09:04)
[2018-08-05] MEDS: FOLIC ACID 0.4 MG TABLET PO SCH (09:04)
[2018-08-05] MEDS: CARVEDILOL 12.5 MG TABLET PO SCH ×2 (09:04→21:23)
[2018-08-05] MEDS: PARoxetine 20 MG TABLET PO SCH (09:04)
[2018-08-05] MEDS: ASPIRIN 325 MG TABLET PER TUBE SCH (09:04)
[2018-08-05] MEDS: cefTRIAXone 500 MG in SYRINGE 1 EACH IV SCH (09:04)
[2018-08-05] MEDS: GABAPENTIN 100 MG CAPSULE PO SCH (09:04)
[2018-08-05] MEDS: amLODIPine 5 MG TABLET PO SCH (09:04)
[2018-08-05] MEDS: FUROSEMIDE 40 MG TABLET PO SCH (09:04)
[2018-08-05] MEDS: CHLORHEXIDINE 0.12% ORAL RINSE 60 ML BOTTLE SWISH/SPIT SCH ×2 (09:05→21:29)
[2018-08-05 09:52] LABS: Amorphous Crystals,Urine Occasional /HPF (Few); Apearance,Urine CLOUDY (Clear); Bilirubin,Urine Negative (Negative); Blood, Urine Moderate mg/dL (Negative); Glucose,Urine (UA) 50 mg/dL (Negative); Ketones,Urine Negative (Negative); Nitrite,Urine Negative (Negative); Protein,Urine >=500 MG/DL; Urine Color Yellow (Yellow); Urine Specific Gravity 1.012 (1.001-1.035); Urine Urobilinogen < 2.0 EU/DL (0.2-1.0); WBC,Urine 112 /HPF (0-6)
[2018-08-05] MEDS: ATORVASTATIN 40 MG TABLET PO SCH (21:24)
[2018-08-05] MEDS: INSULIN GLARGINE 100 UNIT/ML SUBCUT SCH (21:29)
[2018-08-06] MEDS: ALBUTEROL 1.25 MG/3 ML NEB RESP TX SCH ×4 (00:13→20:05)
[2018-08-06] MEDS: INSULIN REGULAR 100 UNIT/ML SUBCUT SCH ×6 (01:07→21:07)
[2018-08-06] MEDS: traMADol 50 MG TABLET PO PRN ×2 (03:38→18:38)
[2018-08-06 03:45] LABS: Basophils % 0.1 % (0.0-0.8); Eosinophils # 0.4 10*3/uL (0.0-0.87); Eosinophils % 5.1 % (0.00-10.9); Hemoglobin 9.2 GM/DL (12.0-16.0); Immature Granulocytes % 0.5 %; Immature Granulocytes Absolute 0.04 #; Lymphocytes # 0.8 10*3/uL (1.4-4.0); Lymphocytes % 10.3 % (21.3-54.2); Mean Corpuscular HGB Conc 31.7 GM/DL (32-36); Mean Corpuscular Hemoglobin 28 PG (27-34); Mean Corpuscular Volume 87.6 FL (87-102); Mean Platelet Volume 12.9 FL (9.6-12.0); Monocytes # 0.8 10*3/uL (0.11-0.8); Monocytes % 9.3 % (1.7-12.7); Neutrophils # 6.1 10*3/uL (1.4-7.4); Neutrophils % 74.7 % (38.7-73.9); Platelet Count 83 T/CUMM (130-400); Red Blood Count 3.31 MC/CUMM (3.8-5.5); Red Cell Distribution Width 14.9 % (9.3-17.3); White Blood Count 8.2 T/CUMM (4-12)
[2018-08-06 04:04] LABS: Calcium 8.8 MG/DL (8.5-10.1); Osmolality,Calculated 299.2 MOS/KG (273-304); Potassium 4.9 MMOL/L (3.5-5.1)
[2018-08-06 04:17] LABS: Hypochromasia 1+; Ovalocytes Slight; Platelet Estimate Decreased
[2018-08-06 04:18] LABS: Microcytosis Slight
[2018-08-06] MEDS: FOLIC ACID 0.4 MG TABLET PO SCH (14:41)
[2018-08-06] MEDS: FUROSEMIDE 40 MG TABLET PO SCH (14:41)
[2018-08-06] MEDS: CHLORHEXIDINE 0.12% ORAL RINSE 60 ML BOTTLE SWISH/SPIT SCH ×2 (14:42→22:03)
[2018-08-06] MEDS: ASPIRIN 325 MG TABLET PER TUBE SCH (14:42)
[2018-08-06] MEDS: GABAPENTIN 100 MG CAPSULE PO SCH (14:42)
[2018-08-06] MEDS: amLODIPine 5 MG TABLET PO SCH (14:42)
[2018-08-06] MEDS: CARVEDILOL 12.5 MG TABLET PO SCH ×2 (14:42→22:00)
[2018-08-06] MEDS: PARoxetine 20 MG TABLET PO SCH (14:42)
[2018-08-06] MEDS: cefTRIAXone 500 MG in SYRINGE 1 EACH IV SCH (14:43)
[2018-08-06] MEDS: PANTOPRAZOLE 40 MG VIAL IV SCH (14:43)
[2018-08-06] MEDS: INSULIN GLARGINE 100 UNIT/ML SUBCUT SCH (21:59)
[2018-08-06] MEDS: ATORVASTATIN 40 MG TABLET PO SCH (22:00)
[2018-08-07] MEDS: traMADol 50 MG TABLET PO PRN ×2 (00:01→21:23)
[2018-08-07] MEDS: INSULIN REGULAR 100 UNIT/ML SUBCUT SCH ×7 (00:41→23:51)
[2018-08-07] MEDS: ALBUTEROL 1.25 MG/3 ML NEB RESP TX SCH ×4 (00:42→19:08)
[2018-08-07 04:29] LABS: Basophils % 0.3 % (0.0-0.8); Eosinophils # 0.3 10*3/uL (0.0-0.87); Eosinophils % 4.4 % (0.00-10.9); Hematocrit 28.8 VOL% (35.7-47.0); Hemoglobin 9.1 GM/DL (12.0-16.0); Immature Granulocytes % 0.4 %; Immature Granulocytes Absolute 0.03 #; Lymphocytes # 0.9 10*3/uL (1.4-4.0); Lymphocytes % 13.3 % (21.3-54.2); Mean Corpuscular HGB Conc 31.6 GM/DL (32-36); Mean Corpuscular Hemoglobin 28 PG (27-34); Mean Corpuscular Volume 87.8 FL (87-102); Mean Platelet Volume 12.1 FL (9.6-12.0); Monocytes # 0.8 10*3/uL (0.11-0.8); Monocytes % 11.7 % (1.7-12.7); Neutrophils % 69.9 % (38.7-73.9); Red Blood Count 3.28 MC/CUMM (3.8-5.5); Red Cell Distribution Width 14.9 % (9.3-17.3); White Blood Count 7.1 T/CUMM (4-12)
[2018-08-07 04:37] LABS: Platelet Count 82 T/CUMM (130-400)
[2018-08-07 05:15] LABS: Hypochromasia 1+; Microcytosis 1+; Ovalocytes Slight; Platelet Estimate Decreased
[2018-08-07 05:21] LABS: Osmolality,Calculated 291.8 MOS/KG (273-304); Potassium 4.2 MMOL/L (3.5-5.1)
[2018-08-07] MEDS: PANTOPRAZOLE 40 MG VIAL IV SCH (09:24)
[2018-08-07] MEDS: cefTRIAXone 500 MG in SYRINGE 1 EACH IV SCH (09:24)
[2018-08-07] MEDS: PARoxetine 20 MG TABLET PO SCH (09:25)
[2018-08-07] MEDS: GABAPENTIN 100 MG CAPSULE PO SCH (09:25)
[2018-08-07] MEDS: CARVEDILOL 12.5 MG TABLET PO SCH ×2 (09:25→21:25)
[2018-08-07] MEDS: amLODIPine 5 MG TABLET PO SCH (09:25)
[2018-08-07] MEDS: FUROSEMIDE 40 MG TABLET PO SCH (09:25)
[2018-08-07] MEDS: ASPIRIN 325 MG TABLET PER TUBE SCH (09:25)
[2018-08-07] MEDS: FOLIC ACID 0.4 MG TABLET PO SCH (09:25)
[2018-08-07] MEDS: CHLORHEXIDINE 0.12% ORAL RINSE 60 ML BOTTLE SWISH/SPIT SCH ×2 (09:26→21:24)
[2018-08-07] MEDS: ATORVASTATIN 40 MG TABLET PO SCH (21:23)
[2018-08-07] MEDS: INSULIN GLARGINE 100 UNIT/ML SUBCUT SCH (21:24)
[2018-08-08] MEDS: ALBUTEROL 1.25 MG/3 ML NEB RESP TX SCH ×4 (02:07→19:17)
[2018-08-08] MEDS: INSULIN REGULAR 100 UNIT/ML SUBCUT SCH ×5 (05:11→21:39)
[2018-08-08 05:25] LABS: Basophils % 0.2 % (0.0-0.8); Eosinophils # 0.4 10*3/uL (0.0-0.87); Hematocrit 27.7 VOL% (35.7-47.0); Hemoglobin 8.9 GM/DL (12.0-16.0); Immature Granulocytes % 0.4 %; Immature Granulocytes Absolute 0.04 #; Lymphocytes # 0.9 10*3/uL (1.4-4.0); Lymphocytes % 9.8 % (21.3-54.2); Mean Corpuscular HGB Conc 32.1 GM/DL (32-36); Mean Corpuscular Hemoglobin 28 PG (27-34); Mean Corpuscular Volume 86.3 FL (87-102); Mean Platelet Volume 12.3 FL (9.6-12.0); Monocytes # 0.9 10*3/uL (0.11-0.8); Monocytes % 9.9 % (1.7-12.7); Neutrophils # 6.8 10*3/uL (1.4-7.4); Neutrophils % 75.7 % (38.7-73.9); Platelet Count 98 T/CUMM (130-400); Red Blood Count 3.21 MC/CUMM (3.8-5.5); Red Cell Distribution Width 14.6 % (9.3-17.3); White Blood Count 9.1 T/CUMM (4-12)
[2018-08-08 05:39] LABS: Calcium 8.9 MG/DL (8.5-10.1); Potassium 4.4 MMOL/L (3.5-5.1)
[2018-08-08 05:57] LABS: Hypochromasia 1+; Microcytosis 1+; Ovalocytes Slight; Platelet Estimate Decreased
[2018-08-08] MEDS ORDERED: TUBERCULIN SKIN TEST 0.1 ML SYRINGE INTRADERM ONE (11:32)
[2018-08-08] MEDS: GABAPENTIN 100 MG CAPSULE PO SCH (11:38)
[2018-08-08] MEDS: FUROSEMIDE 40 MG TABLET PO SCH (11:38)
[2018-08-08] MEDS: FOLIC ACID 0.4 MG TABLET PO SCH (11:38)
[2018-08-08] MEDS: CARVEDILOL 12.5 MG TABLET PO SCH ×2 (11:38→21:39)
[2018-08-08] MEDS: APIXABAN 2.5 MG TABLET PO SCH ×2 (11:38→21:39)
[2018-08-08] MEDS: amLODIPine 5 MG TABLET PO SCH (11:38)
[2018-08-08] MEDS: ASPIRIN 325 MG TABLET PER TUBE SCH (11:38)
[2018-08-08] MEDS: PANTOPRAZOLE 40 MG VIAL IV SCH (11:39)
[2018-08-08] MEDS: PARoxetine 20 MG TABLET PO SCH (11:39)
[2018-08-08] MEDS: CHLORHEXIDINE 0.12% ORAL RINSE 60 ML BOTTLE SWISH/SPIT SCH ×2 (11:39→21:40)
[2018-08-08] MEDS: cefTRIAXone 500 MG in SYRINGE 1 EACH IV SCH (11:44)
[2018-08-08] MEDS: MEROPENEM 500 MG in SODIUM CHLORIDE 0.9% 100 ML IV SCH (17:42)
[2018-08-08] MEDS: INSULIN GLARGINE 100 UNIT/ML SUBCUT SCH (21:39)
[2018-08-08] MEDS: ATORVASTATIN 40 MG TABLET PO SCH (21:39)
[2018-08-09] MEDS: ALBUTEROL 1.25 MG/3 ML NEB RESP TX SCH ×4 (00:24→19:15)
[2018-08-09] MEDS: INSULIN REGULAR 100 UNIT/ML SUBCUT SCH ×6 (02:22→22:50)
[2018-08-09 05:00] LABS: Basophils % 0.4 % (0.0-0.8); Eosinophils # 0.3 10*3/uL (0.0-0.87); Eosinophils % 4.9 % (0.00-10.9); Hematocrit 27.3 VOL% (35.7-47.0); Hemoglobin 8.7 GM/DL (12.0-16.0); Immature Granulocytes % 0.4 %; Immature Granulocytes Absolute 0.03 #; Lymphocytes % 13.9 % (21.3-54.2); Mean Corpuscular HGB Conc 31.9 GM/DL (32-36); Mean Corpuscular Hemoglobin 28 PG (27-34); Mean Corpuscular Volume 87.5 FL (87-102); Mean Platelet Volume 11.7 FL (9.6-12.0); Monocytes # 0.8 10*3/uL (0.11-0.8); Monocytes % 11.1 % (1.7-12.7); Neutrophils # 4.8 10*3/uL (1.4-7.4); Neutrophils % 69.3 % (38.7-73.9); Platelet Count 89 T/CUMM (130-400); Red Blood Count 3.12 MC/CUMM (3.8-5.5); Red Cell Distribution Width 14.6 % (9.3-17.3); White Blood Count 6.9 T/CUMM (4-12)
[2018-08-09 05:35] LABS: Albumin 2.2 G/DL (3.4-5.0); Bilirubin,Total 0.5 MG/DL (0.2-1.0); Osmolality,Calculated 291.5 MOS/KG (273-304); Potassium 3.8 MMOL/L (3.5-5.1); Total Protein 5.2 G/DL (6.4-8.3)
[2018-08-09] MEDS: ASPIRIN 325 MG TABLET PER TUBE SCH (08:54)
[2018-08-09] MEDS: amLODIPine 5 MG TABLET PO SCH (08:54)
[2018-08-09] MEDS: PARoxetine 20 MG TABLET PO SCH (08:54)
[2018-08-09] MEDS: FOLIC ACID 0.4 MG TABLET PO SCH (08:54)
[2018-08-09] MEDS: APIXABAN 2.5 MG TABLET PO SCH ×2 (08:54→22:50)
[2018-08-09] MEDS: CARVEDILOL 12.5 MG TABLET PO SCH ×2 (08:55→22:50)
[2018-08-09] MEDS: PANTOPRAZOLE 40 MG VIAL IV SCH (08:55)
[2018-08-09] MEDS: FUROSEMIDE 40 MG TABLET PO SCH (08:55)
[2018-08-09] MEDS: GABAPENTIN 100 MG CAPSULE PO SCH (08:55)
[2018-08-09] MEDS: CHLORHEXIDINE 0.12% ORAL RINSE 60 ML BOTTLE SWISH/SPIT SCH ×2 (08:59→22:50)
[2018-08-09] MEDS: MEROPENEM 500 MG in SODIUM CHLORIDE 0.9% 100 ML IV SCH (17:13)
[2018-08-09] MEDS: traMADol 50 MG TABLET PO PRN (19:38)
[2018-08-09] MEDS: INSULIN GLARGINE 100 UNIT/ML SUBCUT SCH (22:50)
[2018-08-09] MEDS: ATORVASTATIN 40 MG TABLET PO SCH (22:50)
[2018-08-10] MEDS: ALBUTEROL 1.25 MG/3 ML NEB RESP TX SCH ×4 (00:27→20:42)
[2018-08-10] MEDS: INSULIN REGULAR 100 UNIT/ML SUBCUT SCH ×6 (02:29→21:56)
[2018-08-10 05:48] LABS: Basophils % 0.4 % (0.0-0.8); Eosinophils # 0.4 10*3/uL (0.0-0.87); Eosinophils % 5.1 % (0.00-10.9); Hematocrit 27.2 VOL% (35.7-47.0); Hemoglobin 8.6 GM/DL (12.0-16.0); Immature Granulocytes % 0.4 %; Immature Granulocytes Absolute 0.03 #; Lymphocytes % 12.4 % (21.3-54.2); Mean Corpuscular HGB Conc 31.6 GM/DL (32-36); Mean Corpuscular Hemoglobin 28 PG (27-34); Mean Corpuscular Volume 88.6 FL (87-102); Mean Platelet Volume 11.7 FL (9.6-12.0); Monocytes # 0.8 10*3/uL (0.11-0.8); Monocytes % 9.8 % (1.7-12.7); Neutrophils # 5.6 10*3/uL (1.4-7.4); Neutrophils % 71.9 % (38.7-73.9); Platelet Count 98 T/CUMM (130-400); Red Blood Count 3.07 MC/CUMM (3.8-5.5); Red Cell Distribution Width 14.7 % (9.3-17.3); White Blood Count 7.8 T/CUMM (4-12)
[2018-08-10 07:00] LABS: Anisocytosis 1+; Band Neutrophils 7 % (0-10); Eosinophils 6 % (0-10); Lymphocytes 11 % (20-55); Platelet Estimate Decreased; Segmented Neutrophils 70 % (50-85); Total Cells Counted 100
[2018-08-10] MEDS: ASPIRIN 325 MG TABLET PER TUBE SCH (08:34)
[2018-08-10] MEDS: FUROSEMIDE 40 MG TABLET PO SCH (08:34)
[2018-08-10] MEDS: PARoxetine 20 MG TABLET PO SCH (08:34)
[2018-08-10] MEDS: CHLORHEXIDINE 0.12% ORAL RINSE 60 ML BOTTLE SWISH/SPIT SCH ×2 (08:35→21:57)
[2018-08-10] MEDS: PANTOPRAZOLE 40 MG VIAL IV SCH (08:35)
[2018-08-10] MEDS: CARVEDILOL 12.5 MG TABLET PO SCH ×2 (08:35→21:49)
[2018-08-10] MEDS: amLODIPine 5 MG TABLET PO SCH (08:35)
[2018-08-10] MEDS: FOLIC ACID 0.4 MG TABLET PO SCH (08:35)
[2018-08-10] MEDS: GABAPENTIN 100 MG CAPSULE PO SCH (08:35)
[2018-08-10] MEDS: APIXABAN 2.5 MG TABLET PO SCH ×2 (08:35→21:49)
[2018-08-10] MEDS: MEROPENEM 500 MG in SODIUM CHLORIDE 0.9% 100 ML IV SCH (17:30)
[2018-08-10] MEDS: ATORVASTATIN 40 MG TABLET PO SCH (21:49)
[2018-08-10] MEDS: INSULIN GLARGINE 100 UNIT/ML SUBCUT SCH (21:56)
[2018-08-11] MEDS: ALBUTEROL 1.25 MG/3 ML NEB RESP TX SCH ×4 (01:35→19:12)
[2018-08-11] MEDS: INSULIN REGULAR 100 UNIT/ML SUBCUT SCH ×5 (05:28→21:52)
[2018-08-11] MEDS: traMADol 50 MG TABLET PO PRN (06:15)
[2018-08-11] MEDS ORDERED: ALTEPLASE 2 MG VIAL IV PRN (09:51)
[2018-08-11] MEDS: CARVEDILOL 12.5 MG TABLET PO SCH ×2 (14:59→21:53)
[2018-08-11] MEDS: APIXABAN 2.5 MG TABLET PO SCH ×2 (15:00→21:53)
[2018-08-11] MEDS: FOLIC ACID 0.4 MG TABLET PO SCH (16:29)
[2018-08-11] MEDS: PARoxetine 20 MG TABLET PO SCH (16:29)
[2018-08-11] MEDS: GABAPENTIN 100 MG CAPSULE PO SCH (16:29)
[2018-08-11] MEDS: ASPIRIN 325 MG TABLET PER TUBE SCH (16:29)
[2018-08-11] MEDS: FUROSEMIDE 40 MG TABLET PO SCH (16:30)
[2018-08-11] MEDS: PANTOPRAZOLE 40 MG TABLET PO SCH (16:30)
[2018-08-11] MEDS: amLODIPine 5 MG TABLET PO SCH (16:30)
[2018-08-11] MEDS: CHLORHEXIDINE 0.12% ORAL RINSE 60 ML BOTTLE SWISH/SPIT SCH ×2 (16:30→21:53)
[2018-08-11] MEDS: MEROPENEM 500 MG in SODIUM CHLORIDE 0.9% 100 ML IV SCH (18:18)
[2018-08-11] MEDS: INSULIN GLARGINE 100 UNIT/ML SUBCUT SCH (21:53)
[2018-08-11] MEDS: ATORVASTATIN 40 MG TABLET PO SCH (21:53)
[2018-08-12] MEDS: ALBUTEROL 1.25 MG/3 ML NEB RESP TX SCH ×3 (00:43→13:55)
[2018-08-12] MEDS: INSULIN REGULAR 100 UNIT/ML SUBCUT SCH ×5 (02:00→15:53)
[2018-08-12 04:30] LABS: Basophils % 0.6 % (0.0-0.8); Eosinophils # 0.4 10*3/uL (0.0-0.87); Eosinophils % 8.6 % (0.00-10.9); Hematocrit 27.9 VOL% (35.7-47.0); Hemoglobin 8.7 GM/DL (12.0-16.0); Immature Granulocytes % 0.4 %; Immature Granulocytes Absolute 0.02 #; Lymphocytes # 0.9 10*3/uL (1.4-4.0); Lymphocytes % 18.2 % (21.3-54.2); Mean Corpuscular HGB Conc 31.2 GM/DL (32-36); Mean Corpuscular Hemoglobin 28 PG (27-34); Mean Corpuscular Volume 88.3 FL (87-102); Mean Platelet Volume 11.8 FL (9.6-12.0); Monocytes # 0.5 10*3/uL (0.11-0.8); Monocytes % 10.4 % (1.7-12.7); Neutrophils # 3.1 10*3/uL (1.4-7.4); Neutrophils % 61.8 % (38.7-73.9); Platelet Count 96 T/CUMM (130-400); Red Blood Count 3.16 MC/CUMM (3.8-5.5); Red Cell Distribution Width 14.5 % (9.3-17.3)
[2018-08-12 04:54] LABS: Calcium 8.8 MG/DL (8.5-10.1); Osmolality,Calculated 284.8 MOS/KG (273-304)
[2018-08-12 05:06] LABS: Band Neutrophils 2 % (0-10); Eosinophils 7 % (0-10); Lymphocytes 20 % (20-55); Segmented Neutrophils 61 % (50-85); Total Cells Counted 100
[2018-08-12 05:07] LABS: Acanthocytes Few; Anisocytosis 1+; Hypochromasia 1+; Platelet Estimate Decreased
[2018-08-12] MEDS: PARoxetine 20 MG TABLET PO SCH (09:54)
[2018-08-12] MEDS: amLODIPine 5 MG TABLET PO SCH (09:54)
[2018-08-12] MEDS: GABAPENTIN 100 MG CAPSULE PO SCH (09:54)
[2018-08-12] MEDS: PANTOPRAZOLE 40 MG TABLET PO SCH (09:54)
[2018-08-12] MEDS: FOLIC ACID 0.4 MG TABLET PO SCH (09:54)
[2018-08-12] MEDS: APIXABAN 2.5 MG TABLET PO SCH (09:54)
[2018-08-12] MEDS: ASPIRIN 325 MG TABLET PER TUBE SCH (09:54)
[2018-08-12] MEDS: CARVEDILOL 12.5 MG TABLET PO SCH (09:54)
[2018-08-12] MEDS: FUROSEMIDE 40 MG TABLET PO SCH (09:55)
[2018-08-12] MEDS: CHLORHEXIDINE 0.12% ORAL RINSE 60 ML BOTTLE SWISH/SPIT SCH (10:02)
[2018-08-12 16:31] VITALS: BP 117/56
[2018-08-12] MEDS: MEROPENEM 500 MG in SODIUM CHLORIDE 0.9% 100 ML IV SCH (18:02)
== END 2018-08-12 17:40 | DRG 216 ==
LOC: N.ED 15:08 → N.EDINP 21:06 → N.TELEN 23:45 → N.CVR 07-25 07:56 → N.ICU 07-27 11:22 → N.TELES 07-29 14:27
PROVIDERS: ADMIT Internal Medicine; ATTEND Internal Medicine
PROC: CLCCHCL (ICD-10-PCS; 2018-07-16 11:45)

== ENCOUNTER 2018-10-15 21:29 | Inpatient (IN) ==
[2018-10-15 22:21] LABS: Basophils % 0.3 % (0.0-0.8); Eosinophils # 0.1 10*3/uL (0.0-0.87); Eosinophils % 0.9 % (0.00-10.9); Hematocrit 26.6 VOL% (35.7-47.0); Hemoglobin 7.9 GM/DL (12.0-16.0); Immature Granulocytes % 0.4 %; Immature Granulocytes Absolute 0.04 #; Lymphocytes # 0.7 10*3/uL (1.4-4.0); Lymphocytes % 6.5 % (21.3-54.2); Mean Corpuscular HGB Conc 29.7 GM/DL (32-36); Mean Corpuscular Volume 93.7 FL (87-102); Mean Platelet Volume 11.2 FL (9.6-12.0); Monocytes % 9.3 % (1.7-12.7); Neutrophils % 82.6 % (38.7-73.9); Platelet Count 124 T/CUMM (130-400); Red Blood Count 2.84 MC/CUMM (3.8-5.5); Red Cell Distribution Width 14.1 % (9.3-17.3); White Blood Count 9.9 T/CUMM (4-12)
[2018-10-15 22:46] LABS: Alanine Aminotransferase < 9 U/L (13-56); Alkaline Phosphatase 58 U/L (45-117); Aspartate Amino Transferase 18 U/L (0-37); Blood Urea Nitrogen 40 MG/DL (7-18); Calcium 9.6 MG/DL (8.5-10.1); Glucose 153 MG/DL (74-106); Osmolality,Calculated 287.7 MOS/KG (273-304); Total Protein 6.4 G/DL (6.4-8.3); Troponin I < 0.015 NG/ML (0.00-0.045)
[2018-10-15 23:01] LABS: VBG Base Excess 5.3 MEQ/L (0-4); VBG HCO3 29.2 MEQ/L (24-28); VBG PCO2 39.4 MMHG (41-51); VBG PH 7.478
[2018-10-15] MEDS ORDERED: FUROSEMIDE 40 MG/4 ML VIAL IV STA (23:27)
[2018-10-15] MEDS ORDERED: ONDANSETRON 4 MG/2 ML VIAL IV PRN (23:39)
[2018-10-15] MEDS ORDERED: DEXTROSE 50% 25 GM/50 ML SYRINGE IV PRN (23:39)
[2018-10-15] MEDS ORDERED: GLUCAGON 1 MG VIAL IM PRN (23:39)
[2018-10-15 23:41] LABS: Apearance,Urine CLOUDY (Clear); Bilirubin,Urine Negative (Negative); Blood, Urine Small mg/dL (Negative); Glucose,Urine (UA) 50 mg/dL (Negative); Ketones,Urine Negative (Negative); Nitrite,Urine Negative (Negative); Protein,Urine >=500 MG/DL; RBC,Urine 24 /HPF (0-4); Urine Specific Gravity 1.017 (1.001-1.035); Urine Urobilinogen < 2.0 EU/DL (0.2-1.0); WBC,Urine 2117 /HPF (0-6)
[2018-10-15 23:45] LABS: Urine Color Yellow (Yellow)
[2018-10-16] MEDS ORDERED: FUROSEMIDE 40 MG/4 ML VIAL ONE (00:07)
[2018-10-16] MEDS ORDERED: FUROSEMIDE 40 MG/4 ML VIAL IV ONE (06:25)
[2018-10-16] MEDS ORDERED: ALBUTEROL/IPRATROPIUM 3 ML NEB RESP TX ONE (07:42)
[2018-10-16] MEDS ORDERED: SODIUM CHLORIDE 0.9% 1,000 ML IV PRN (08:10)
[2018-10-16] MEDS: cefTRIAXone 500 MG in SYRINGE 1 EACH IV SCH (09:08)
[2018-10-16] MEDS: ALBUTEROL/IPRATROPIUM 3 ML NEB RESP TX SCH ×2 (13:35→19:11)
[2018-10-16] MEDS: diphenhydrAMINE CAP 25 MG CAPSULE PO PRN (13:40)
[2018-10-16 18:07] LABS: Hematocrit 33.5 VOL% (35.7-47.0); Hemoglobin 10.6 GM/DL (12.0-16.0)
[2018-10-17] MEDS: ACETAMINOPHEN 325 MG TABLET PO PRN ×2 (01:03→09:45)
[2018-10-17] MEDS: ALBUTEROL/IPRATROPIUM 3 ML NEB RESP TX SCH ×4 (01:35→19:28)
[2018-10-17 03:59] LABS: ABG HCO3 24.3 MMOL/L (20-26); ABG Oxygen Saturation 91.6 % (95-100); ABG PCO2 45.6 MM HG (35-48); ABG PO2 62.8 MM HG (80-95); ABG TCO2 23.5 MMOL/L (23-27); Allen Test Positive; Pt O2 Delivery Device Venturi Mask
[2018-10-17 04:26] LABS: Basophils % 0.5 % (0.0-0.8); Eosinophils # 0.1 10*3/uL (0.0-0.87); Eosinophils % 0.9 % (0.00-10.9); Hematocrit 31.1 VOL% (35.7-47.0); Hemoglobin 9.8 GM/DL (12.0-16.0); Immature Granulocytes % 0.5 %; Immature Granulocytes Absolute 0.04 #; Lymphocytes # 0.8 10*3/uL (1.4-4.0); Lymphocytes % 9.2 % (21.3-54.2); Mean Corpuscular HGB Conc 31.5 GM/DL (32-36); Mean Corpuscular Volume 90.7 FL (87-102); Mean Platelet Volume 11.8 FL (9.6-12.0); Monocytes % 8.1 % (1.7-12.7); Neutrophils % 80.8 % (38.7-73.9); Platelet Count 158 T/CUMM (130-400); Red Blood Count 3.43 MC/CUMM (3.8-5.5); Red Cell Distribution Width 14.3 % (9.3-17.3); White Blood Count 8.1 T/CUMM (4-12)
[2018-10-17 04:55] LABS: Calcium 9.7 MG/DL (8.5-10.1); Osmolality,Calculated 289.8 MOS/KG (273-304)
[2018-10-17] MEDS: cefTRIAXone 500 MG in SYRINGE 1 EACH IV SCH (09:45)
[2018-10-17] MEDS: INSULIN REGULAR 100 UNIT/ML SUBCUT SCH ×3 (13:30→21:56)
[2018-10-17] MEDS: DESITIN 4OZ/NYSTATIN 15 GRAM MIXTURE PASTE TOP SCH ×2 (17:32→22:00)
[2018-10-17] MEDS ORDERED: FUROSEMIDE 40 MG/4 ML VIAL IV ONE (23:54)
[2018-10-18] MEDS ORDERED: amLODIPine 10 MG TABLET PO ONE (00:03)
[2018-10-18] MEDS: ALBUTEROL/IPRATROPIUM 3 ML NEB RESP TX SCH ×4 (00:47→19:23)
[2018-10-18] MEDS: CARVEDILOL 12.5 MG TABLET PO SCH ×3 (00:49→17:04)
[2018-10-18] MEDS: ATORVASTATIN 40 MG TABLET PO SCH ×2 (00:49→22:28)
[2018-10-18 01:38] LABS: Troponin I 0.024 NG/ML (0.00-0.045)
[2018-10-18 04:27] LABS: Basophils # 0.1 10*3/uL (0.0-0.2); Basophils % 0.7 % (0.0-0.8); Eosinophils # 0.2 10*3/uL (0.0-0.87); Eosinophils % 3.1 % (0.00-10.9); Hematocrit 32.3 VOL% (35.7-47.0); Hemoglobin 10.1 GM/DL (12.0-16.0); Immature Granulocytes % 1.2 %; Immature Granulocytes Absolute 0.09 #; Lymphocytes # 0.6 10*3/uL (1.4-4.0); Lymphocytes % 8.1 % (21.3-54.2); Mean Corpuscular HGB Conc 31.3 GM/DL (32-36); Mean Corpuscular Volume 91.2 FL (87-102); Mean Platelet Volume 11.1 FL (9.6-12.0); Neutrophils % 79.9 % (38.7-73.9); Platelet Count 197 T/CUMM (130-400); Red Blood Count 3.54 MC/CUMM (3.8-5.5); Red Cell Distribution Width 13.9 % (9.3-17.3); White Blood Count 7.7 T/CUMM (4-12)
[2018-10-18 04:58] LABS: Calcium 10.1 MG/DL (8.5-10.1); Osmolality,Calculated 298.7 MOS/KG (273-304)
[2018-10-18 05:00] LABS: Allen Test Positive; Pt O2 Delivery Device Venturi Mask
[2018-10-18 05:01] LABS: ABG Base Excess 1.3 MMOL/L (-2.5-2.5); ABG HCO3 25.5 MMOL/L (20-26); ABG Oxygen Saturation 96.6 % (95-100); ABG PCO2 46.4 MM HG (35-48); ABG PH 7.371 (7.35-7.45); ABG PO2 83.2 MM HG (80-95); ABG TCO2 24.4 MMOL/L (23-27)
[2018-10-18] MEDS ORDERED: traMADol 50 MG TABLET PO PRN (07:47)
[2018-10-18] MEDS ORDERED: FUROSEMIDE 40 MG/4 ML VIAL IV ONE (07:50)
[2018-10-18] MEDS ORDERED: MEPERIDINE 50 MG TABLET PO SCH (08:00)
[2018-10-18] MEDS: ASPIRIN 325 MG TABLET PO SCH (09:23)
[2018-10-18] MEDS: CYANOCOBALAMIN 500 MCG TABLET PO SCH (09:23)
[2018-10-18] MEDS: FOLIC ACID 0.4 MG TABLET PO SCH (09:23)
[2018-10-18] MEDS: FERROUS SULFATE 325 MG TABLET PO SCH (09:23)
[2018-10-18] MEDS: FUROSEMIDE 40 MG TABLET PO SCH (09:23)
[2018-10-18] MEDS: GABAPENTIN 100 MG CAPSULE PO SCH (09:24)
[2018-10-18] MEDS: PARoxetine 20 MG TABLET PO SCH (09:24)
[2018-10-18] MEDS: amLODIPine 10 MG TABLET PO SCH (09:24)
[2018-10-18] MEDS: DOCUSATE SODIUM 100 MG CAPSULE PO SCH (09:24)
[2018-10-18] MEDS: INSULIN REGULAR 100 UNIT/ML SUBCUT SCH ×4 (09:25→22:34)
[2018-10-18] MEDS: DESITIN 4OZ/NYSTATIN 15 GRAM MIXTURE PASTE TOP SCH ×2 (09:32→21:13)
[2018-10-18] MEDS: cefTRIAXone 500 MG in SYRINGE 1 EACH IV SCH (09:32)
[2018-10-18] MEDS ORDERED: ALBUTEROL 2.5 MG/3 ML NEB RESP TX SCH (11:00)
[2018-10-18] MEDS: diphenhydrAMINE CAP 25 MG CAPSULE PO PRN (22:28)
[2018-10-18] MEDS: INSULIN GLARGINE 100 UNIT/ML SUBCUT SCH (22:34)
[2018-10-19] MEDS: ALBUTEROL/IPRATROPIUM 3 ML NEB RESP TX SCH ×4 (01:01→19:08)
[2018-10-19 04:21] LABS: Basophils # 0.1 10*3/uL (0.0-0.2); Eosinophils # 0.8 10*3/uL (0.0-0.87); Eosinophils % 11.6 % (0.00-10.9); Hematocrit 31.1 VOL% (35.7-47.0); Hemoglobin 9.9 GM/DL (12.0-16.0); Immature Granulocytes % 0.7 %; Immature Granulocytes Absolute 0.05 #; Lymphocytes # 1.5 10*3/uL (1.4-4.0); Lymphocytes % 22.7 % (21.3-54.2); Mean Corpuscular HGB Conc 31.8 GM/DL (32-36); Mean Corpuscular Volume 90.4 FL (87-102); Mean Platelet Volume 10.8 FL (9.6-12.0); Monocytes % 9.7 % (1.7-12.7); Neutrophils % 54.3 % (38.7-73.9); Platelet Count 234 T/CUMM (130-400); Red Blood Count 3.44 MC/CUMM (3.8-5.5); Red Cell Distribution Width 13.8 % (9.3-17.3); White Blood Count 6.8 T/CUMM (4-12)
[2018-10-19 04:41] LABS: Calcium 9.9 MG/DL (8.5-10.1); Osmolality,Calculated 304.4 MOS/KG (273-304)
[2018-10-19 05:06] LABS: Anisocytosis 1+; Eosinophils 5 % (0-10); Lymphocytes 8 % (20-55); Segmented Neutrophils 79 % (50-85); Total Cells Counted 100
[2018-10-19] MEDS: cefTRIAXone 500 MG in SYRINGE 1 EACH IV SCH (08:34)
[2018-10-19] MEDS: CARVEDILOL 12.5 MG TABLET PO SCH ×2 (08:36→16:33)
[2018-10-19] MEDS: CYANOCOBALAMIN 500 MCG TABLET PO SCH (08:36)
[2018-10-19] MEDS: ASPIRIN 325 MG TABLET PO SCH (08:36)
[2018-10-19] MEDS: DOCUSATE SODIUM 100 MG CAPSULE PO SCH (08:36)
[2018-10-19] MEDS: FUROSEMIDE 40 MG TABLET PO SCH (08:36)
[2018-10-19] MEDS: amLODIPine 10 MG TABLET PO SCH (08:36)
[2018-10-19] MEDS: PARoxetine 20 MG TABLET PO SCH (08:36)
[2018-10-19] MEDS: FERROUS SULFATE 325 MG TABLET PO SCH (08:36)
[2018-10-19] MEDS: GABAPENTIN 100 MG CAPSULE PO SCH (08:36)
[2018-10-19] MEDS: FOLIC ACID 0.4 MG TABLET PO SCH (08:37)
[2018-10-19] MEDS: INSULIN REGULAR 100 UNIT/ML SUBCUT SCH ×4 (08:38→22:05)
[2018-10-19] MEDS: DESITIN 4OZ/NYSTATIN 15 GRAM MIXTURE PASTE TOP SCH ×2 (08:38→20:23)
[2018-10-19 10:13] LABS: Platelet Estimate Normal
[2018-10-19] MEDS: INSULIN GLARGINE 100 UNIT/ML SUBCUT SCH (22:06)
[2018-10-19] MEDS: ATORVASTATIN 40 MG TABLET PO SCH (22:06)
[2018-10-19] MEDS: ACETAMINOPHEN 325 MG TABLET PO PRN (22:07)
[2018-10-20] MEDS: ALBUTEROL/IPRATROPIUM 3 ML NEB RESP TX SCH ×4 (00:13→19:26)
[2018-10-20 04:36] LABS: Basophils # 0.1 10*3/uL (0.0-0.2); Basophils % 0.8 % (0.0-0.8); Eosinophils # 1.2 10*3/uL (0.0-0.87); Eosinophils % 14.1 % (0.00-10.9); Hematocrit 31.6 VOL% (35.7-47.0); Hemoglobin 9.9 GM/DL (12.0-16.0); Immature Granulocytes % 0.9 %; Immature Granulocytes Absolute 0.08 #; Lymphocytes # 1.9 10*3/uL (1.4-4.0); Lymphocytes % 22.7 % (21.3-54.2); Mean Corpuscular HGB Conc 31.3 GM/DL (32-36); Mean Platelet Volume 10.7 FL (9.6-12.0); Monocytes % 8.3 % (1.7-12.7); Neutrophils % 53.2 % (38.7-73.9); Platelet Count 247 T/CUMM (130-400); Red Blood Count 3.51 MC/CUMM (3.8-5.5); Red Cell Distribution Width 13.7 % (9.3-17.3); White Blood Count 8.5 T/CUMM (4-12)
[2018-10-20 04:46] LABS: Calcium 10.1 MG/DL (8.5-10.1); Osmolality,Calculated 311.5 MOS/KG (273-304)
[2018-10-20 04:50] LABS: Calcium 10.3 MG/DL (8.5-10.1); Osmolality,Calculated 313.4 MOS/KG (273-304)
[2018-10-20 07:32] LABS: Anisocytosis Slight; Band Neutrophils 2 % (0-10); Eosinophils 19 % (0-10); Lymphocytes 19 % (20-55); Platelet Estimate Normal; Segmented Neutrophils 54 % (50-85); Total Cells Counted 100
[2018-10-20 07:33] LABS: Poikilocytosis Slight
[2018-10-20] MEDS: cefTRIAXone 500 MG in SYRINGE 1 EACH IV SCH (08:38)
[2018-10-20] MEDS: INSULIN REGULAR 100 UNIT/ML SUBCUT SCH ×4 (08:42→20:57)
[2018-10-20] MEDS: CARVEDILOL 12.5 MG TABLET PO SCH ×2 (08:43→17:18)
[2018-10-20] MEDS: FERROUS SULFATE 325 MG TABLET PO SCH (08:43)
[2018-10-20] MEDS: ASPIRIN 325 MG TABLET PO SCH (08:43)
[2018-10-20] MEDS: DOCUSATE SODIUM 100 MG CAPSULE PO SCH (08:43)
[2018-10-20] MEDS: FUROSEMIDE 40 MG TABLET PO SCH (08:43)
[2018-10-20] MEDS: amLODIPine 10 MG TABLET PO SCH (08:43)
[2018-10-20] MEDS: FOLIC ACID 0.4 MG TABLET PO SCH (08:43)
[2018-10-20] MEDS: GABAPENTIN 100 MG CAPSULE PO SCH (08:43)
[2018-10-20] MEDS: DESITIN 4OZ/NYSTATIN 15 GRAM MIXTURE PASTE TOP SCH (08:44)
[2018-10-20] MEDS: CYANOCOBALAMIN 500 MCG TABLET PO SCH (08:44)
[2018-10-20] MEDS: PARoxetine 20 MG TABLET PO SCH (08:44)
[2018-10-20] MEDS ORDERED: FLUCONAZOLE INJ 200 MG in PREMIX 1 EACH IV ONE (18:11)
[2018-10-20] MEDS: INSULIN GLARGINE 100 UNIT/ML SUBCUT SCH (20:57)
[2018-10-20] MEDS: ATORVASTATIN 40 MG TABLET PO SCH (20:58)
[2018-10-21] MEDS: DESITIN 4OZ/NYSTATIN 15 GRAM MIXTURE PASTE TOP SCH ×2 (00:05→08:47)
[2018-10-21] MEDS: ALBUTEROL/IPRATROPIUM 3 ML NEB RESP TX SCH ×2 (04:12→07:15)
[2018-10-21 04:48] LABS: Basophils # 0.1 10*3/uL (0.0-0.2); Basophils % 0.7 % (0.0-0.8); Eosinophils # 1.6 10*3/uL (0.0-0.87); Eosinophils % 15.4 % (0.00-10.9); Hematocrit 31.5 VOL% (35.7-47.0); Hemoglobin 9.6 GM/DL (12.0-16.0); Immature Granulocytes % 1.3 %; Immature Granulocytes Absolute 0.13 #; Mean Corpuscular HGB Conc 30.5 GM/DL (32-36); Mean Corpuscular Volume 91.8 FL (87-102); Mean Platelet Volume 10.7 FL (9.6-12.0); Monocytes % 8.3 % (1.7-12.7); Neutrophils % 54.3 % (38.7-73.9); Platelet Count 252 T/CUMM (130-400); Red Blood Count 3.43 MC/CUMM (3.8-5.5); Red Cell Distribution Width 13.6 % (9.3-17.3); White Blood Count 10.1 T/CUMM (4-12)
[2018-10-21 05:10] LABS: Calcium 10.6 MG/DL (8.5-10.1); Osmolality,Calculated 313.5 MOS/KG (273-304)
[2018-10-21 06:54] LABS: Eosinophils 13 % (0-10); Lymphocytes 19 % (20-55); Platelet Estimate Adequate; Segmented Neutrophils 60 % (50-85); Total Cells Counted 100
[2018-10-21 06:55] LABS: Hypochromasia Slight; Ovalocytes Slight
[2018-10-21 07:53] VITALS: BP 150/64
[2018-10-21] MEDS: PARoxetine 20 MG TABLET PO SCH (08:42)
[2018-10-21] MEDS: FOLIC ACID 0.4 MG TABLET PO SCH (08:42)
[2018-10-21] MEDS: CYANOCOBALAMIN 500 MCG TABLET PO SCH (08:43)
[2018-10-21] MEDS: FUROSEMIDE 40 MG TABLET PO SCH (08:43)
[2018-10-21] MEDS: ASPIRIN 325 MG TABLET PO SCH (08:43)
[2018-10-21] MEDS: GABAPENTIN 100 MG CAPSULE PO SCH (08:44)
[2018-10-21] MEDS: FERROUS SULFATE 325 MG TABLET PO SCH (08:44)
[2018-10-21] MEDS: DOCUSATE SODIUM 100 MG CAPSULE PO SCH (08:44)
[2018-10-21] MEDS: CARVEDILOL 12.5 MG TABLET PO SCH (08:46)
[2018-10-21] MEDS: INSULIN REGULAR 100 UNIT/ML SUBCUT SCH ×2 (08:46→12:18)
[2018-10-21] MEDS: amLODIPine 10 MG TABLET PO SCH (08:46)
[2018-10-21] MEDS: cefTRIAXone 500 MG in SYRINGE 1 EACH IV SCH (08:47)
[2018-10-21] MEDS ORDERED: ERGOCALCIFEROL 50,000 UNIT CAPSULE PO SCH (09:00)
[2018-10-21] MEDS ORDERED: HEPARIN 10,000 UNIT/10 ML VIAL IV PRN (10:50)
== END 2018-10-21 14:59 | DRG 291 ==
LOC: EDUNIT# → EDBD → N.ED 21:29 → N.EDINP 21:29 → N.TELES 10-16 00:05
PROVIDERS: ADMIT Internal Medicine; ATTEND Internal Medicine

== ENCOUNTER 2019-04-20 06:00 | Inpatient (IN) ==
[~2019-04-20 06:00] MED LIST: ACETAMINOPHEN 500 MG TABLET PO ONE; DIAZEPAM 5 MG TABLET PO ONE; FAMOTIDINE 20 MG TABLET PO ONE
[2019-04-20] MEDS ORDERED: ceFAZolin 1,000 MG in SYRINGE 1 EACH IV ONE (06:30)
[2019-04-20] MEDS ORDERED: ALBUTEROL/IPRATROPIUM 3 ML NEB RESP TX ONE (07:27)
[2019-04-20 07:53] LABS: Basophils # 0.1 10*3/uL (0.0-0.2); Basophils % 0.6 % (0.0-0.8); Eosinophils # 0.5 10*3/uL (0.0-0.87); Eosinophils % 5.5 % (0.00-10.9); Hematocrit 35.5 VOL% (35.7-47.0); Hemoglobin 10.6 GM/DL (12.0-16.0); Immature Granulocytes % 0.5 %; Immature Granulocytes Absolute 0.04 #; Lymphocytes # 1.3 10*3/uL (1.4-4.0); Lymphocytes % 15.2 % (21.3-54.2); Mean Corpuscular HGB Conc 29.9 GM/DL (32-36); Mean Corpuscular Volume 87.7 FL (87-102); Monocytes % 8.7 % (1.7-12.7); Neutrophils % 69.5 % (38.7-73.9); Platelet Count 143 T/CUMM (130-400); Red Blood Count 4.05 MC/CUMM (3.8-5.5); Red Cell Distribution Width 16.2 % (9.3-17.3); White Blood Count 8.4 T/CUMM (4-12)
[2019-04-20] MEDS: SODIUM CHLORIDE 0.9% 250 ML IV SCH (08:00)
[2019-04-20 08:12] LABS: Calcium 11.3 MG/DL (8.5-10.1); Osmolality,Calculated 288.4 MOS/KG (273-304)
[2019-04-20] MEDS ORDERED: ACETAMINOPHEN 500 MG TABLET ONE (08:13)
[2019-04-20] MEDS ORDERED: FAMOTIDINE 20 MG TABLET ONE (08:13)
[2019-04-20] MEDS ORDERED: ceFAZolin 1,000 MG VIAL ONE (08:19)
[2019-04-20] MEDS ORDERED: CHLORPHENIRAMINE DEXTROMETHORP PO PRN (09:37)
[2019-04-20] MEDS ORDERED: DEXTROSE 50% 25 GM/50 ML VIAL IV PRN (09:37)
[2019-04-20] MEDS ORDERED: GLUCAGON 1 MG VIAL IM PRN (09:37)
[2019-04-20] MEDS ORDERED: traMADol 50 MG TABLET PO PRN (09:37)
[2019-04-20] MEDS ORDERED: MENTHOL TOP PRN (09:37)
[2019-04-20] MEDS ORDERED: POTASSIUM CHLORIDE RIDER 10 MEQ in PREMIX 1 EACH IV PRN (09:37)
[2019-04-20] MEDS ORDERED: PROMETHAZINE 25 MG TABLET PO PRN (09:37)
[2019-04-20] MEDS ORDERED: ACETAMINOPHEN 650 MG SUPP RECTAL PRN (09:37)
[2019-04-20] MEDS ORDERED: ZINC OXIDE TOP SCH (09:45)
[2019-04-20] MEDS ORDERED: NYSTATIN CREAM 15 GM TUBE TOP SCH (10:00)
[2019-04-20] MEDS ORDERED: PNEUMOCOCCAL VACCINE (13 VALENT) 0.5 ML SYRINGE IM ONE (10:45)
[2019-04-20] MEDS: INSULIN LISPRO 100 UNIT/ML SUBCUT SCH ×2 (12:20→18:46)
[2019-04-20] MEDS: POTASSIUM CHLORIDE 20 MEQ TABLET PO PRN ×3 (18:45→22:54)
[2019-04-20] MEDS: MELATONIN 3 MG TABLET PO SCH (21:07)
[2019-04-20] MEDS: carvediloL 12.5 MG TABLET PO SCH (21:07)
[2019-04-20] MEDS: ATORVASTATIN 40 MG TABLET PO SCH (21:07)
[2019-04-21] MEDS: POTASSIUM CHLORIDE 20 MEQ TABLET PO PRN (00:56)
[2019-04-21] MEDS: ALBUTEROL 1.25 MG/3 ML NEB RESP TX SCH (05:00)
[2019-04-21] MEDS ORDERED: ceFAZolin 1,000 MG in SYRINGE 1 EACH IV ONE (06:00)
[2019-04-21 06:29] LABS: Basophils % 0.5 % (0.0-0.8); Eosinophils # 0.5 10*3/uL (0.0-0.87); Eosinophils % 6.1 % (0.00-10.9); Hematocrit 37.8 VOL% (35.7-47.0); Immature Granulocytes % 0.5 %; Immature Granulocytes Absolute 0.04 #; Lymphocytes # 1.2 10*3/uL (1.4-4.0); Lymphocytes % 15.2 % (21.3-54.2); Mean Corpuscular HGB Conc 29.1 GM/DL (32-36); Mean Corpuscular Volume 88.5 FL (87-102); Mean Platelet Volume 11.4 FL (9.6-12.0); Monocytes % 6.5 % (1.7-12.7); Neutrophils % 71.2 % (38.7-73.9); Platelet Count 157 T/CUMM (130-400); Red Blood Count 4.27 MC/CUMM (3.8-5.5); Red Cell Distribution Width 16.5 % (9.3-17.3)
[2019-04-21 06:32] LABS: Alanine Aminotransferase < 9 U/L (13-56); Albumin 2.8 G/DL (3.4-5.0); Alkaline Phosphatase 68 U/L (45-117); Aspartate Amino Transferase 10 U/L (0-37); Blood Urea Nitrogen 38 MG/DL (7-18); Calcium 11.2 MG/DL (8.5-10.1); Estimated Glom Filtration Rate 15 ML/MIN; Glucose 267 MG/DL (74-106); Osmolality,Calculated 294.5 MOS/KG (273-304)
[2019-04-21 06:35] LABS: Hypochromasia 1+; Ovalocytes Slight; Platelet Estimate Adequate
[2019-04-21] MEDS: SODIUM CHLORIDE 0.9% 250 ML IV SCH ×3 (07:13→21:49)
[2019-04-21] MEDS: INSULIN LISPRO 100 UNIT/ML SUBCUT SCH ×3 (07:14→17:04)
[2019-04-21] MEDS ORDERED: NYSTATIN CREAM 15 GM TUBE TOP PRN (08:24)
[2019-04-21] MEDS ORDERED: ZINC OXIDE PASTE 113 GM TUBE TOP PRN (08:25)
[2019-04-21] MEDS ORDERED: AMINO AC PROTEIN HYDR WHEY PRO PO SCH (09:00)
[2019-04-21] MEDS: POLYVINYL ALCOHOL 1.4% OPH SOLN 15 ML BOTTLE BOTH EYES SCH (10:41)
[2019-04-21] MEDS ORDERED: ALTEPLASE 2 MG VIAL INTRACATH ONE (12:30)
[2019-04-21] MEDS ORDERED: HEPARIN 5,000 UNIT/1 ML VIAL ONE (13:16)
[2019-04-21] MEDS ORDERED: THROMBIN TOPICAL (RECOMBINANT) 5,000 UNIT VIAL TOP ONE (13:17)
[2019-04-21] MEDS ORDERED: BUPIVACAINE MPF 0.25% 30 ML VIAL ONE (13:17)
[2019-04-21] MEDS ORDERED: LIDOCAINE 1%/EPI INJ 20 ML VIAL ONE (13:17)
[2019-04-21] MEDS ORDERED: SODIUM CHLORIDE 0.9% 250 ML IV SCH (14:00)
[2019-04-21 14:15] LABS: Parathyroid Hormone Intact 172.6 PG/ML (18.4-80.1)
[2019-04-21] MEDS ORDERED: LIDOCAINE 2% 5 ML VIAL ONE (14:36)
[2019-04-21] MEDS ORDERED: MIDAZOLAM 2 MG/2 ML VIAL ONE (14:37)
[2019-04-21] MEDS ORDERED: fentaNYL 100 MCG/2 ML VIAL ONE (14:37)
[2019-04-21] MEDS ORDERED: SODIUM CHLORIDE 0.9% 100 ML IV ONE (14:37)
[2019-04-21] MEDS ORDERED: KETAMINE 500 MG/10 ML VIAL ONE (14:37)
[2019-04-21 14:49] LABS: Hepatitis B Core IgM Quant 0.07 Index; Hepatitis B Surface Ag Quant 0.13 Index; Hepatitis B Surface Ag Result Negative (Negative); Hepatitis C Virus Ab Quant < 0.02 Index; Hepatitis C Virus Ab Result Negative (Negative)
[2019-04-21] MEDS: carvediloL 12.5 MG TABLET PO SCH ×2 (15:17→20:31)
[2019-04-21] MEDS: FOLIC ACID 0.4 MG TABLET PO SCH (16:22)
[2019-04-21] MEDS: FERROUS SULFATE 325 MG TABLET PO SCH (16:22)
[2019-04-21] MEDS: DOCUSATE SODIUM 100 MG CAPSULE PO SCH (16:22)
[2019-04-21] MEDS: ASPIRIN 325 MG TABLET PO SCH (16:22)
[2019-04-21] MEDS: GABAPENTIN 100 MG CAPSULE PO SCH (16:23)
[2019-04-21] MEDS: amLODIPine 10 MG TABLET PO SCH (16:23)
[2019-04-21] MEDS: SEVELAMER CARBONATE POWDER 2.4 GM PACK PO SCH (16:23)
[2019-04-21] MEDS: FUROSEMIDE 40 MG TABLET PO SCH (16:23)
[2019-04-21] MEDS: PARoxetine 20 MG TABLET PO SCH (16:23)
[2019-04-21] MEDS: CYANOCOBALAMIN 500 MCG TABLET PO SCH (16:24)
[2019-04-21] MEDS: ATORVASTATIN 40 MG TABLET PO SCH (20:31)
[2019-04-21] MEDS: MELATONIN 3 MG TABLET PO SCH (20:31)
[2019-04-22] MEDS: ALBUTEROL 1.25 MG/3 ML NEB RESP TX SCH (05:38)
[2019-04-22] MEDS: SODIUM CHLORIDE 0.9% 250 ML IV SCH ×2 (07:47→22:56)
[2019-04-22 07:55] LABS: ABG Base Excess 7.9 MMOL/L (-2.5-2.5); ABG HCO3 31.7 MMOL/L (20-26); ABG Oxygen Saturation 97.2 % (95-100); ABG PCO2 46.3 MM HG (35-48); ABG PH 7.458 (7.35-7.45); ABG PO2 79.2 MM HG (80-95); ABG TCO2 29.7 MMOL/L (23-27)
[2019-04-22 08:00] LABS: Calcium 9.8 MG/DL (8.5-10.1); Osmolality,Calculated 288.1 MOS/KG (273-304)
[2019-04-22 08:09] LABS: Basophils % 0.4 % (0.0-0.8); Eosinophils # 0.4 10*3/uL (0.0-0.87); Hematocrit 34.3 VOL% (35.7-47.0); Immature Granulocytes % 0.5 %; Immature Granulocytes Absolute 0.04 #; Lymphocytes # 1.4 10*3/uL (1.4-4.0); Lymphocytes % 16.5 % (21.3-54.2); Mean Corpuscular HGB Conc 29.2 GM/DL (32-36); Mean Corpuscular Volume 89.1 FL (87-102); Mean Platelet Volume 11.5 FL (9.6-12.0); Monocytes % 7.9 % (1.7-12.7); Neutrophils % 69.7 % (38.7-73.9); Platelet Count 144 T/CUMM (130-400); Red Blood Count 3.85 MC/CUMM (3.8-5.5); White Blood Count 8.2 T/CUMM (4-12)
[2019-04-22] MEDS: FUROSEMIDE 40 MG TABLET PO SCH (08:23)
[2019-04-22] MEDS: INSULIN LISPRO 100 UNIT/ML SUBCUT SCH ×3 (08:23→16:14)
[2019-04-22] MEDS: carvediloL 12.5 MG TABLET PO SCH ×2 (08:24→20:34)
[2019-04-22] MEDS: amLODIPine 10 MG TABLET PO SCH (08:28)
[2019-04-22] MEDS: DOCUSATE SODIUM 100 MG CAPSULE PO SCH (08:28)
[2019-04-22] MEDS: GABAPENTIN 100 MG CAPSULE PO SCH (08:28)
[2019-04-22] MEDS: SEVELAMER CARBONATE POWDER 2.4 GM PACK PO SCH (08:28)
[2019-04-22] MEDS: ASPIRIN 325 MG TABLET PO SCH (08:28)
[2019-04-22] MEDS: FOLIC ACID 0.4 MG TABLET PO SCH (08:28)
[2019-04-22] MEDS: PARoxetine 20 MG TABLET PO SCH (08:28)
[2019-04-22] MEDS: POLYVINYL ALCOHOL 1.4% OPH SOLN 15 ML BOTTLE BOTH EYES SCH (08:28)
[2019-04-22] MEDS: FERROUS SULFATE 325 MG TABLET PO SCH (08:28)
[2019-04-22] MEDS: CYANOCOBALAMIN 500 MCG TABLET PO SCH (08:29)
[2019-04-22 08:40] LABS: Immunoglobulin A (Chem) 206 MG/DL (70-400); Immunoglobulin G (Chem) 944 MG/DL (700-1600); Immunoglobulin M (Chem) 112 MG/DL (40-230)
[2019-04-22 08:42] LABS: Albumin (SPE) 3.8 G/DL (3.2-5.3); Albumin (SPE) Rel % 62.9 %; Alpha 1 (SPE) 0.2 G/DL (0.1-0.4); Alpha 2 (SPE) 0.5 G/DL (0.4-1.0); Alpha 2 (SPE) Rel % 8.9 %; Beta (SPE) 0.5 G/DL (0.5-1.1); Beta (SPE) Rel % 8.8 %; Gamma (SPE) 0.9 G/DL (0.7-1.7); Gamma (SPE) Rel % 15.4 %
[2019-04-22] MEDS: methylPREDNISolone SOD SUC 40 MG/1 ML VIAL IV SCH (18:34)
[2019-04-22] MEDS: BUDESONIDE 0.25 MG/2 ML NEB RESP TX SCH (19:29)
[2019-04-22] MEDS: ALBUTEROL/IPRATROPIUM 3 ML NEB RESP TX SCH (19:29)
[2019-04-22] MEDS: MELATONIN 3 MG TABLET PO SCH (20:34)
[2019-04-22] MEDS: ATORVASTATIN 40 MG TABLET PO SCH (20:34)
[2019-04-23] MEDS: ALBUTEROL/IPRATROPIUM 3 ML NEB RESP TX SCH ×4 (00:36→19:42)
[2019-04-23] MEDS: methylPREDNISolone SOD SUC 40 MG/1 ML VIAL IV SCH ×3 (01:14→18:42)
[2019-04-23] MEDS: BUDESONIDE 0.25 MG/2 ML NEB RESP TX SCH ×2 (07:31→19:42)
[2019-04-23] MEDS: INSULIN LISPRO 100 UNIT/ML SUBCUT SCH ×3 (08:28→17:36)
[2019-04-23] MEDS: POLYVINYL ALCOHOL 1.4% OPH SOLN 15 ML BOTTLE BOTH EYES SCH (08:28)
[2019-04-23] MEDS: FERROUS SULFATE 325 MG TABLET PO SCH (08:30)
[2019-04-23] MEDS: ASPIRIN 325 MG TABLET PO SCH (08:30)
[2019-04-23] MEDS: CYANOCOBALAMIN 500 MCG TABLET PO SCH (08:30)
[2019-04-23] MEDS: PARoxetine 20 MG TABLET PO SCH (08:30)
[2019-04-23] MEDS: FOLIC ACID 0.4 MG TABLET PO SCH (08:30)
[2019-04-23] MEDS: GABAPENTIN 100 MG CAPSULE PO SCH (08:30)
[2019-04-23] MEDS: SEVELAMER CARBONATE POWDER 2.4 GM PACK PO SCH (08:30)
[2019-04-23] MEDS: FUROSEMIDE 40 MG TABLET PO SCH (08:30)
[2019-04-23 09:00] LABS: Immuno Free Light Chain Kappa 10.28 MG/DL (0.33-1.94); Immuno Free Light Chain Lambda 5.01 MG/DL (0.57-2.63); Immuno Free Light Chain Ratio 2.05 MG/DL (0.26-1.65)
[2019-04-23] MEDS: SODIUM CHLORIDE 0.9% 250 ML IV SCH ×2 (09:00→22:40)
[2019-04-23] MEDS ORDERED: diphenhydrAMINE CAP 25 MG CAPSULE PO PRN (09:47)
[2019-04-23] MEDS: carvediloL 12.5 MG TABLET PO SCH ×2 (13:09→20:31)
[2019-04-23] MEDS: amLODIPine 10 MG TABLET PO SCH (13:09)
[2019-04-23] MEDS ORDERED: HEPARIN 10,000 UNIT/10 ML VIAL IV SCH (14:00)
[2019-04-23] MEDS: ATORVASTATIN 40 MG TABLET PO SCH (20:31)
[2019-04-23] MEDS: MELATONIN 3 MG TABLET PO SCH (20:31)
[2019-04-24] MEDS: ALBUTEROL/IPRATROPIUM 3 ML NEB RESP TX SCH ×3 (00:28→13:30)
[2019-04-24] MEDS: methylPREDNISolone SOD SUC 40 MG/1 ML VIAL IV SCH ×2 (02:33→10:04)
[2019-04-24 05:37] LABS: Basophils % 0.1 % (0.0-0.8); Immature Granulocytes % 1.4 %; Immature Granulocytes Absolute 0.11 #; Platelet Count 172 T/CUMM (130-400)
[2019-04-24 06:03] LABS: Hematocrit 34.5 VOL% (35.7-47.0); Lymphocytes # 0.7 10*3/uL (1.4-4.0); Lymphocytes % 8.4 % (21.3-54.2); Mean Corpuscular Volume 90.3 FL (87-102); Mean Platelet Volume 11.8 FL (9.6-12.0); Monocytes % 1.7 % (1.7-12.7); NRBC # 0.02 10*3/uL; Neutrophils % 88.4 % (38.7-73.9); Red Blood Count 3.82 MC/CUMM (3.8-5.5); Red Cell Distribution Width 17.7 % (9.3-17.3); White Blood Count 7.9 T/CUMM (4-12)
[2019-04-24 06:04] LABS: Albumin 3.1 G/DL (3.4-5.0); Calcium 10.6 MG/DL (8.5-10.1); Osmolality,Calculated 294.2 MOS/KG (273-304)
[2019-04-24] MEDS: BUDESONIDE 0.25 MG/2 ML NEB RESP TX SCH (08:33)
[2019-04-24] MEDS: INSULIN LISPRO 100 UNIT/ML SUBCUT SCH ×2 (10:00→13:24)
[2019-04-24] MEDS: FOLIC ACID 0.4 MG TABLET PO SCH (10:02)
[2019-04-24] MEDS: amLODIPine 10 MG TABLET PO SCH (10:02)
[2019-04-24] MEDS: ASPIRIN 325 MG TABLET PO SCH (10:03)
[2019-04-24] MEDS: carvediloL 12.5 MG TABLET PO SCH (10:03)
[2019-04-24] MEDS: GABAPENTIN 100 MG CAPSULE PO SCH (10:03)
[2019-04-24] MEDS: FUROSEMIDE 40 MG TABLET PO SCH (10:03)
[2019-04-24] MEDS: SEVELAMER CARBONATE POWDER 2.4 GM PACK PO SCH (10:04)
[2019-04-24] MEDS: FERROUS SULFATE 325 MG TABLET PO SCH (10:04)
[2019-04-24] MEDS: CYANOCOBALAMIN 500 MCG TABLET PO SCH (10:04)
[2019-04-24] MEDS: PARoxetine 20 MG TABLET PO SCH (10:04)
[2019-04-24 12:13] VITALS: BP 121/48
== END 2019-04-24 14:35 | DRG 640 ==
LOC: N.3E 06:00 → N.OR 06:00 → N.SDSINP 06:03 → N.3E 10:10
PROVIDERS: ADMIT Family Medicine; ATTEND Family Medicine

== ENCOUNTER 2019-11-07 15:09 | Inpatient (IN) ==
[2019-11-07 16:22] LABS: Basophils % 0.1 % (0.0-0.8); Eosinophils % 0.1 % (0.00-10.9); Hematocrit 27.6 VOL% (35.7-47.0); Immature Granulocytes % 0.6 %; Immature Granulocytes Absolute 0.07 #; Lymphocytes # 0.5 10*3/uL (1.4-4.0); Lymphocytes % 4.5 % (21.3-54.2); Mean Corpuscular Volume 94.8 FL (87-102); Monocytes % 4.1 % (1.7-12.7); Neutrophils % 90.6 % (38.7-73.9); Platelet Count 175 T/CUMM (130-400); Red Blood Count 2.91 MC/CUMM (3.8-5.5); Red Cell Distribution Width 16.3 % (9.3-17.3); White Blood Count 11.5 T/CUMM (4-12)
[2019-11-07 16:35] LABS: Albumin 2.4 G/DL (3.4-5.0); Bilirubin,Total 0.4 MG/DL (0.2-1.0); Calcium 9.4 MG/DL (8.5-10.1); Osmolality,Calculated 274.2 MOS/KG (273-304); Total Protein 6.3 G/DL (6.4-8.3)
[2019-11-07 17:31] LABS: Hypochromasia Slight; Lymphocytes 5 % (20-55); Microcytosis Slight; Platelet Estimate Adequate; Segmented Neutrophils 94 % (50-85); Total Cells Counted 100
[2019-11-07 17:34] LABS: Barbiturates Screen,Urine Negative (Negative); Benzodiazepines Screen,Urine Negative (Negative); Cannabinoid Screen,Urine Negative (Negative); Opiate Screen,Urine Negative (Negative); Phencyclidine Screen,Urine Negative (Negative)
[2019-11-07 17:43] LABS: Amorphous Crystals,Urine Occasional /HPF (Few); Apearance,Urine CLOUDY (Clear); Bacteria,Urine Many /HPF (Few); Bilirubin,Urine Negative (Negative); Blood, Urine Small mg/dL (Negative); Glucose,Urine (UA) Negative (Negative); Ketones,Urine Negative (Negative); Nitrite,Urine Negative (Negative); Protein,Urine 100 MG/DL; Urine Color Amber (Yellow); Urine Specific Gravity 1.014 (1.001-1.035); Urine Urobilinogen < 2.0 EU/DL (0.2-1.0); WBC,Urine 101 /HPF (0-6)
[2019-11-07] MEDS ORDERED: cefTRIAXone 1,000 MG in SODIUM CHLORIDE 0.9% 100 ML IV STA (17:48)
[2019-11-07] MEDS ORDERED: LEVOFLOXACIN INJ 500 MG in PREMIX 1 EACH IV STA (17:54)
[2019-11-07] MEDS ORDERED: DEXTROSE 50% 25 GM/50 ML VIAL IV PRN ×2 (19:15→20:59)
[2019-11-07] MEDS ORDERED: GLUCAGON 1 MG VIAL IM PRN ×2 (19:15→20:59)
[2019-11-07] MEDS: DOCUSATE SODIUM 100 MG CAPSULE PO SCH (23:44)
[2019-11-08] MEDS: INSULIN LISPRO 100 UNIT/ML SUBCUT SCH ×4 (01:58→17:36)
[2019-11-08] MEDS: ACETAMINOPHEN 325 MG TABLET PO PRN (05:27)
[2019-11-08 05:59] LABS: Calcium 9.9 MG/DL (8.5-10.1); Osmolality,Calculated 277.8 MOS/KG (273-304)
[2019-11-08 06:20] LABS: Basophils % 0.1 % (0.0-0.8); Eosinophils % 0.3 % (0.00-10.9); Hematocrit 30.2 VOL% (35.7-47.0); Hemoglobin 8.8 GM/DL (12.0-16.0); Immature Granulocytes % 0.5 %; Immature Granulocytes Absolute 0.06 #; Lymphocytes % 8.8 % (21.3-54.2); Mean Corpuscular HGB Conc 29.1 GM/DL (32-36); Mean Corpuscular Volume 95.3 FL (87-102); Mean Platelet Volume 10.4 FL (9.6-12.0); Monocytes % 7.7 % (1.7-12.7); Neutrophils % 82.6 % (38.7-73.9); Platelet Count 254 T/CUMM (130-400); Red Blood Count 3.17 MC/CUMM (3.8-5.5); Red Cell Distribution Width 16.4 % (9.3-17.3); White Blood Count 11.4 T/CUMM (4-12)
[2019-11-08] MEDS: PANTOPRAZOLE 40 MG TABLET PO SCH (09:21)
[2019-11-08] MEDS: DOCUSATE SODIUM 100 MG CAPSULE PO SCH ×2 (09:21→20:35)
[2019-11-08] MEDS: cefTRIAXone 1,000 MG in SYRINGE 1 EACH IV SCH (20:35)
[2019-11-09] MEDS: INSULIN LISPRO 100 UNIT/ML SUBCUT SCH ×4 (01:26→18:37)
[2019-11-09] MEDS: PANTOPRAZOLE 40 MG TABLET PO SCH (09:46)
[2019-11-09] MEDS: DOCUSATE SODIUM 100 MG CAPSULE PO SCH ×2 (09:46→20:51)
[2019-11-09] MEDS: ACETAMINOPHEN 325 MG TABLET PO PRN (20:52)
[2019-11-09] MEDS: cefTRIAXone 1,000 MG in SYRINGE 1 EACH IV SCH (20:53)
[2019-11-10] MEDS: INSULIN LISPRO 100 UNIT/ML SUBCUT SCH ×4 (01:50→19:55)
[2019-11-10 07:19] LABS: Calcium 9.7 MG/DL (8.5-10.1); Osmolality,Calculated 277.7 MOS/KG (273-304)
[2019-11-10 11:19] LABS: Basophils % 0.2 % (0.0-0.8); Eosinophils # 0.3 10*3/uL (0.0-0.87); Hematocrit 34.4 VOL% (35.7-47.0); Immature Granulocytes % 0.6 %; Immature Granulocytes Absolute 0.07 #; Lymphocytes # 0.8 10*3/uL (1.4-4.0); Lymphocytes % 6.5 % (21.3-54.2); Mean Corpuscular HGB Conc 29.1 GM/DL (32-36); Mean Corpuscular Volume 93.2 FL (87-102); Mean Platelet Volume 11.5 FL (9.6-12.0); Monocytes % 5.7 % (1.7-12.7); Platelet Count 150 T/CUMM (130-400); Red Blood Count 3.69 MC/CUMM (3.8-5.5); Red Cell Distribution Width 16.1 % (9.3-17.3); White Blood Count 12.5 T/CUMM (4-12)
[2019-11-10 11:37] LABS: Anisocytosis 1+; Macrocytosis 1+; Platelet Estimate Normal
[2019-11-10 11:38] LABS: Poikilocytosis Slight
[2019-11-10] MEDS: ASPIRIN 325 MG TABLET PO SCH (15:15)
[2019-11-10] MEDS: PANTOPRAZOLE 40 MG TABLET PO SCH (15:15)
[2019-11-10] MEDS: DOCUSATE SODIUM 100 MG CAPSULE PO SCH ×2 (15:15→20:52)
[2019-11-10] MEDS: ATORVASTATIN 40 MG TABLET PO SCH (20:52)
[2019-11-10] MEDS: cefTRIAXone 1,000 MG in SYRINGE 1 EACH IV SCH (20:56)
[2019-11-10] MEDS: CLINDAMYCIN INJ 300 MG in PREMIX 1 EACH IV SCH (23:21)
[2019-11-10] MEDS: MELATONIN 3 MG TABLET PO SCH (23:26)
[2019-11-11] MEDS: INSULIN LISPRO 100 UNIT/ML SUBCUT SCH ×5 (01:34→23:10)
[2019-11-11] MEDS: CLINDAMYCIN INJ 300 MG in PREMIX 1 EACH IV SCH ×4 (04:33→22:30)
[2019-11-11 06:46] LABS: Basophils % 0.2 % (0.0-0.8); Eosinophils # 0.2 10*3/uL (0.0-0.87); Eosinophils % 2.1 % (0.00-10.9); Hematocrit 29.3 VOL% (35.7-47.0); Hemoglobin 8.7 GM/DL (12.0-16.0); Immature Granulocytes % 0.6 %; Immature Granulocytes Absolute 0.06 #; Lymphocytes % 9.5 % (21.3-54.2); Mean Corpuscular HGB Conc 29.7 GM/DL (32-36); Mean Corpuscular Volume 91.6 FL (87-102); Mean Platelet Volume 9.8 FL (9.6-12.0); Monocytes % 6.9 % (1.7-12.7); Neutrophils % 80.7 % (38.7-73.9); Platelet Count 239 T/CUMM (130-400); Red Cell Distribution Width 16.2 % (9.3-17.3)
[2019-11-11 07:05] LABS: Osmolality,Calculated 276.2 MOS/KG (273-304)
[2019-11-11] MEDS: DOCUSATE SODIUM 100 MG CAPSULE PO SCH ×3 (11:17→21:31)
[2019-11-11] MEDS: ASPIRIN 325 MG TABLET PO SCH (11:17)
[2019-11-11] MEDS: SEVELAMER CARBONATE POWDER 2.4 GM PACK PO SCH (11:17)
[2019-11-11] MEDS: PANTOPRAZOLE 40 MG TABLET PO SCH (11:18)
[2019-11-11] MEDS: GABAPENTIN 100 MG CAPSULE PO SCH (11:18)
[2019-11-11] MEDS: FERROUS SULFATE 325 MG TABLET PO SCH (11:18)
[2019-11-11] MEDS: LIDOCAINE 5% PATCH TRANSDERM SCH ×2 (11:21→11:32)
[2019-11-11] MEDS: ZINC OXIDE PASTE 113 GM TUBE TOP SCH ×2 (11:42→21:32)
[2019-11-11] MEDS: cefTRIAXone 1,000 MG in SYRINGE 1 EACH IV SCH (21:30)
[2019-11-11] MEDS: MELATONIN 3 MG TABLET PO SCH (21:31)
[2019-11-11] MEDS: ATORVASTATIN 40 MG TABLET PO SCH (21:31)
[2019-11-12] MEDS: CLINDAMYCIN INJ 300 MG in PREMIX 1 EACH IV SCH ×3 (04:39→22:11)
[2019-11-12 06:18] LABS: Basophils % 0.4 % (0.0-0.8); Eosinophils # 0.3 10*3/uL (0.0-0.87); Eosinophils % 3.7 % (0.00-10.9); Hematocrit 29.7 VOL% (35.7-47.0); Hemoglobin 8.6 GM/DL (12.0-16.0); Immature Granulocytes % 0.5 %; Immature Granulocytes Absolute 0.05 #; Lymphocytes # 0.9 10*3/uL (1.4-4.0); Lymphocytes % 10.2 % (21.3-54.2); Mean Corpuscular Volume 93.7 FL (87-102); Mean Platelet Volume 9.9 FL (9.6-12.0); Monocytes % 9.1 % (1.7-12.7); Neutrophils % 76.1 % (38.7-73.9); Platelet Count 266 T/CUMM (130-400); Red Blood Count 3.17 MC/CUMM (3.8-5.5); Red Cell Distribution Width 16.2 % (9.3-17.3); White Blood Count 9.2 T/CUMM (4-12)
[2019-11-12 06:53] LABS: Calcium 10.3 MG/DL (8.5-10.1); Osmolality,Calculated 278.2 MOS/KG (273-304)
[2019-11-12] MEDS: INSULIN LISPRO 100 UNIT/ML SUBCUT SCH ×3 (07:04→18:22)
[2019-11-12] MEDS: SEVELAMER CARBONATE POWDER 2.4 GM PACK PO SCH (09:16)
[2019-11-12] MEDS: ZINC OXIDE PASTE 113 GM TUBE TOP SCH ×2 (09:16→21:13)
[2019-11-12] MEDS ORDERED: HEPARIN 10,000 UNIT/10 ML VIAL IV SCH (12:30)
[2019-11-12] MEDS: ONDANSETRON 4 MG/2 ML VIAL IV PRN (12:35)
[2019-11-12] MEDS: ASPIRIN 325 MG TABLET PO SCH (15:00)
[2019-11-12] MEDS: DOCUSATE SODIUM 100 MG CAPSULE PO SCH ×3 (15:00→21:02)
[2019-11-12] MEDS: GABAPENTIN 100 MG CAPSULE PO SCH (15:01)
[2019-11-12] MEDS: PANTOPRAZOLE 40 MG TABLET PO SCH (15:01)
[2019-11-12] MEDS: FERROUS SULFATE 325 MG TABLET PO SCH (15:01)
[2019-11-12] MEDS: LIDOCAINE 5% PATCH TRANSDERM SCH (15:05)
[2019-11-12] MEDS ORDERED: PARoxetine 10 MG TABLET PO ONE (17:58)
[2019-11-12] MEDS: MELATONIN 3 MG TABLET PO SCH (21:02)
[2019-11-12] MEDS: ATORVASTATIN 40 MG TABLET PO SCH (21:02)
[2019-11-12] MEDS: cefTRIAXone 1,000 MG in SYRINGE 1 EACH IV SCH (21:04)
[2019-11-12] MEDS ORDERED: NITROGLYCERIN SL 0.4 MG TABLET SL ONE (23:53)
[2019-11-12] MEDS: NITROGLYCERIN SL 0.4 MG TABLET SL PRN (23:54)
[2019-11-13] MEDS: NITROGLYCERIN SL 0.4 MG TABLET SL PRN
[2019-11-13] MEDS: INSULIN LISPRO 100 UNIT/ML SUBCUT SCH ×4 (00:52→17:59)
[2019-11-13] MEDS: CLINDAMYCIN INJ 300 MG in PREMIX 1 EACH IV SCH ×4 (03:46→22:35)
[2019-11-13] MEDS: ONDANSETRON 4 MG/2 ML VIAL IV PRN ×2 (04:37→09:47)
[2019-11-13 06:21] LABS: Basophils % 0.4 % (0.0-0.8); Eosinophils # 0.3 10*3/uL (0.0-0.87); Eosinophils % 3.9 % (0.00-10.9); Hematocrit 28.6 VOL% (35.7-47.0); Hemoglobin 8.4 GM/DL (12.0-16.0); Immature Granulocytes % 0.6 %; Immature Granulocytes Absolute 0.05 #; Lymphocytes # 1.1 10*3/uL (1.4-4.0); Lymphocytes % 13.6 % (21.3-54.2); Mean Corpuscular HGB Conc 29.4 GM/DL (32-36); Mean Corpuscular Volume 92.3 FL (87-102); Mean Platelet Volume 10.1 FL (9.6-12.0); Monocytes % 13.1 % (1.7-12.7); Neutrophils % 68.4 % (38.7-73.9); Platelet Count 231 T/CUMM (130-400); Red Cell Distribution Width 16.1 % (9.3-17.3); White Blood Count 7.8 T/CUMM (4-12)
[2019-11-13 06:40] LABS: Alanine Aminotransferase 9 U/L (13-56); Alkaline Phosphatase 67 U/L (45-117); Aspartate Amino Transferase 16 U/L (0-37); Bilirubin,Total < 0.39 MG/DL (0.2-1.0); Blood Urea Nitrogen 33 MG/DL (7-18); Calcium 9.7 MG/DL (8.5-10.1); Estimated Glom Filtration Rate 16 ML/MIN; Glucose 139 MG/DL (74-106); Osmolality,Calculated 274.4 MOS/KG (273-304); Total Protein 5.8 G/DL (6.4-8.3)
[2019-11-13] MEDS: LIDOCAINE 5% PATCH TRANSDERM SCH (09:42)
[2019-11-13] MEDS: ZINC OXIDE PASTE 113 GM TUBE TOP SCH ×2 (09:50→22:32)
[2019-11-13] MEDS: PARoxetine 10 MG TABLET PO SCH (13:48)
[2019-11-13] MEDS: GABAPENTIN 100 MG CAPSULE PO SCH (13:49)
[2019-11-13] MEDS: ASPIRIN 325 MG TABLET PO SCH (13:49)
[2019-11-13] MEDS: PANTOPRAZOLE 40 MG TABLET PO SCH (13:49)
[2019-11-13] MEDS: DOCUSATE SODIUM 100 MG CAPSULE PO SCH ×3 (13:49→22:32)
[2019-11-13] MEDS: FERROUS SULFATE 325 MG TABLET PO SCH (13:49)
[2019-11-13] MEDS: SEVELAMER CARBONATE POWDER 2.4 GM PACK PO SCH (13:50)
[2019-11-13] MEDS: ATORVASTATIN 40 MG TABLET PO SCH (22:32)
[2019-11-13] MEDS: MELATONIN 3 MG TABLET PO SCH (22:33)
[2019-11-13] MEDS: cefTRIAXone 1,000 MG in SYRINGE 1 EACH IV SCH (23:53)
[2019-11-14] MEDS: INSULIN LISPRO 100 UNIT/ML SUBCUT SCH ×4 (00:42→18:32)
[2019-11-14] MEDS ORDERED: NITROGLYCERIN 2% OINT 1 INCH/GM PACK TOP ONE (01:56)
[2019-11-14] MEDS ORDERED: hydrALAZINE 25 MG TABLET PO ONE (01:56)
[2019-11-14] MEDS: ALBUTEROL/IPRATROPIUM 3 ML NEB RESP TX PRN (02:00)
[2019-11-14] MEDS: CLINDAMYCIN INJ 300 MG in PREMIX 1 EACH IV SCH ×3 (03:47→15:41)
[2019-11-14 06:57] LABS: Basophils % 0.4 % (0.0-0.8); Eosinophils # 0.2 10*3/uL (0.0-0.87); Eosinophils % 2.6 % (0.00-10.9); Hematocrit 27.9 VOL% (35.7-47.0); Immature Granulocytes % 1.3 %; Lymphocytes # 0.8 10*3/uL (1.4-4.0); Lymphocytes % 10.8 % (21.3-54.2); Mean Corpuscular HGB Conc 28.7 GM/DL (32-36); Mean Corpuscular Volume 94.3 FL (87-102); Mean Platelet Volume 10.5 FL (9.6-12.0); Monocytes % 9.9 % (1.7-12.7); Platelet Count 226 T/CUMM (130-400); Red Blood Count 2.96 MC/CUMM (3.8-5.5); Red Cell Distribution Width 15.8 % (9.3-17.3); White Blood Count 7.7 T/CUMM (4-12)
[2019-11-14 07:01] LABS: Calcium 10.1 MG/DL (8.5-10.1); Osmolality,Calculated 278.4 MOS/KG (273-304)
[2019-11-14 12:44] LABS: Helmet Cells 1+; Hypochromasia 1+; Microcytosis 1+
[2019-11-14 12:45] LABS: Polychromasia Few
[2019-11-14] MEDS: SEVELAMER CARBONATE POWDER 2.4 GM PACK PO SCH (13:16)
[2019-11-14] MEDS: LIDOCAINE 5% PATCH TRANSDERM SCH (13:16)
[2019-11-14] MEDS: FERROUS SULFATE 325 MG TABLET PO SCH (13:17)
[2019-11-14] MEDS: ASPIRIN 325 MG TABLET PO SCH (13:17)
[2019-11-14] MEDS: DOCUSATE SODIUM 100 MG CAPSULE PO SCH ×3 (13:17→22:45)
[2019-11-14] MEDS: GABAPENTIN 100 MG CAPSULE PO SCH (13:17)
[2019-11-14] MEDS: ZINC OXIDE PASTE 113 GM TUBE TOP SCH ×2 (13:18→22:45)
[2019-11-14] MEDS: PANTOPRAZOLE 40 MG TABLET PO SCH (13:24)
[2019-11-14] MEDS: PARoxetine 10 MG TABLET PO SCH (13:24)
[2019-11-14] MEDS ORDERED: VANCOMYCIN INJ 1,000 MG in SODIUM CHLORIDE 0.9% 250 ML IV PRN (17:00)
[2019-11-14] MEDS ORDERED: VANCOMYCIN INJ 1,000 MG in SODIUM CHLORIDE 0.9% 250 ML IV ONE (17:00)
[2019-11-14] MEDS: ATORVASTATIN 40 MG TABLET PO SCH (22:44)
[2019-11-14] MEDS: MELATONIN 3 MG TABLET PO SCH (22:45)
[2019-11-14] MEDS: CLINDAMYCIN 300 MG CAPSULE PO SCH (22:46)
[2019-11-15] MEDS: INSULIN LISPRO 100 UNIT/ML SUBCUT SCH ×4 (00:40→19:17)
[2019-11-15] MEDS: CLINDAMYCIN 300 MG CAPSULE PO SCH ×3 (06:14→22:04)
[2019-11-15 06:59] LABS: Basophils # 0.1 10*3/uL (0.0-0.2); Basophils % 0.8 % (0.0-0.8); Eosinophils # 0.3 10*3/uL (0.0-0.87); Eosinophils % 4.4 % (0.00-10.9); Hematocrit 27.9 VOL% (35.7-47.0); Hemoglobin 8.2 GM/DL (12.0-16.0); Immature Granulocytes % 1.7 %; Immature Granulocytes Absolute 0.11 #; Lymphocytes # 1.2 10*3/uL (1.4-4.0); Mean Corpuscular HGB Conc 29.4 GM/DL (32-36); Mean Corpuscular Volume 92.4 FL (87-102); Mean Platelet Volume 10.7 FL (9.6-12.0); Monocytes % 12.1 % (1.7-12.7); Platelet Count 213 T/CUMM (130-400); Red Blood Count 3.02 MC/CUMM (3.8-5.5); Red Cell Distribution Width 15.9 % (9.3-17.3); White Blood Count 6.6 T/CUMM (4-12)
[2019-11-15 07:05] LABS: Calcium 10.1 MG/DL (8.5-10.1); Osmolality,Calculated 268.8 MOS/KG (273-304)
[2019-11-15] MEDS: FERROUS SULFATE 325 MG TABLET PO SCH (09:05)
[2019-11-15] MEDS: ZINC OXIDE PASTE 113 GM TUBE TOP SCH ×2 (09:05→22:05)
[2019-11-15] MEDS: LIDOCAINE 5% PATCH TRANSDERM SCH (09:35)
[2019-11-15] MEDS: SEVELAMER CARBONATE POWDER 2.4 GM PACK PO SCH (09:35)
[2019-11-15] MEDS: PARoxetine 10 MG TABLET PO SCH (09:41)
[2019-11-15] MEDS: ASPIRIN 325 MG TABLET PO SCH (09:41)
[2019-11-15] MEDS: PANTOPRAZOLE 40 MG TABLET PO SCH (09:42)
[2019-11-15] MEDS: GABAPENTIN 100 MG CAPSULE PO SCH (09:42)
[2019-11-15] MEDS: DOCUSATE SODIUM 100 MG CAPSULE PO SCH ×3 (09:42→22:05)
[2019-11-15] MEDS: traMADol 50 MG TABLET PO PRN (19:36)
[2019-11-15] MEDS: MELATONIN 3 MG TABLET PO SCH (22:04)
[2019-11-15] MEDS: ATORVASTATIN 40 MG TABLET PO SCH (22:05)
[2019-11-16] MEDS: INSULIN LISPRO 100 UNIT/ML SUBCUT SCH ×4 (01:16→18:08)
[2019-11-16] MEDS: traMADol 50 MG TABLET PO PRN ×2 (02:37→08:35)
[2019-11-16] MEDS: ALBUTEROL/IPRATROPIUM 3 ML NEB RESP TX PRN (03:05)
[2019-11-16] MEDS: CLINDAMYCIN 300 MG CAPSULE PO SCH ×3 (07:37→21:01)
[2019-11-16] MEDS: ONDANSETRON 4 MG/2 ML VIAL IV PRN (08:33)
[2019-11-16] MEDS: SEVELAMER CARBONATE POWDER 2.4 GM PACK PO SCH (08:37)
[2019-11-16] MEDS: PANTOPRAZOLE 40 MG TABLET PO SCH (08:38)
[2019-11-16] MEDS: DOCUSATE SODIUM 100 MG CAPSULE PO SCH ×3 (08:38→20:00)
[2019-11-16] MEDS: PARoxetine 10 MG TABLET PO SCH (08:38)
[2019-11-16] MEDS: FERROUS SULFATE 325 MG TABLET PO SCH (08:38)
[2019-11-16] MEDS: ASPIRIN 325 MG TABLET PO SCH (08:38)
[2019-11-16] MEDS: ZINC OXIDE PASTE 113 GM TUBE TOP SCH ×2 (08:39→20:00)
[2019-11-16] MEDS: GABAPENTIN 100 MG CAPSULE PO SCH (08:39)
[2019-11-16] MEDS: LIDOCAINE 5% PATCH TRANSDERM SCH (08:41)
[2019-11-16 09:13] LABS: Calcium 10.4 MG/DL (8.5-10.1); Osmolality,Calculated 272.8 MOS/KG (273-304)
[2019-11-16 09:24] LABS: Basophils # 0.1 10*3/uL (0.0-0.2); Basophils % 0.9 % (0.0-0.8); Eosinophils # 0.2 10*3/uL (0.0-0.87); Eosinophils % 3.1 % (0.00-10.9); Hematocrit 25.9 VOL% (35.7-47.0); Hemoglobin 7.4 GM/DL (12.0-16.0); Immature Granulocytes % 1.5 %; Immature Granulocytes Absolute 0.11 #; Lymphocytes % 13.6 % (21.3-54.2); Mean Corpuscular HGB Conc 28.6 GM/DL (32-36); Mean Corpuscular Volume 95.2 FL (87-102); Mean Platelet Volume 10.4 FL (9.6-12.0); Monocytes % 9.4 % (1.7-12.7); Neutrophils % 71.5 % (38.7-73.9); Platelet Count 244 T/CUMM (130-400); Red Blood Count 2.72 MC/CUMM (3.8-5.5); Red Cell Distribution Width 15.9 % (9.3-17.3); White Blood Count 7.5 T/CUMM (4-12)
[2019-11-16 10:20] LABS: Hypochromasia 1+; Microcytosis 1+
[2019-11-16 10:21] LABS: Ovalocytes Slight; Platelet Estimate Normal; Polychromasia Slight
[2019-11-16] MEDS: MELATONIN 3 MG TABLET PO SCH (20:00)
[2019-11-16] MEDS: ATORVASTATIN 40 MG TABLET PO SCH (20:00)
[2019-11-17] MEDS: INSULIN LISPRO 100 UNIT/ML SUBCUT SCH ×4 (01:52→18:44)
[2019-11-17] MEDS: CLINDAMYCIN 300 MG CAPSULE PO SCH ×3 (05:55→22:54)
[2019-11-17] MEDS: LIDOCAINE 5% PATCH TRANSDERM SCH (09:02)
[2019-11-17] MEDS: PARoxetine 10 MG TABLET PO SCH (09:03)
[2019-11-17] MEDS: GABAPENTIN 100 MG CAPSULE PO SCH (09:04)
[2019-11-17] MEDS: DOCUSATE SODIUM 100 MG CAPSULE PO SCH ×3 (09:04→20:31)
[2019-11-17] MEDS: PANTOPRAZOLE 40 MG TABLET PO SCH (09:04)
[2019-11-17] MEDS: FERROUS SULFATE 325 MG TABLET PO SCH (09:04)
[2019-11-17] MEDS: SEVELAMER CARBONATE POWDER 2.4 GM PACK PO SCH (09:05)
[2019-11-17 10:57] LABS: Basophils # 0.1 10*3/uL (0.0-0.2); Basophils % 0.9 % (0.0-0.8); Eosinophils # 0.2 10*3/uL (0.0-0.87); Eosinophils % 3.6 % (0.00-10.9); Hematocrit 23.9 VOL% (35.7-47.0); Hemoglobin 6.9 GM/DL (12.0-16.0); Immature Granulocytes % 1.5 %; Immature Granulocytes Absolute 0.09 #; Lymphocytes # 0.9 10*3/uL (1.4-4.0); Lymphocytes % 15.1 % (21.3-54.2); Mean Corpuscular HGB Conc 28.9 GM/DL (32-36); Mean Corpuscular Volume 94.8 FL (87-102); Mean Platelet Volume 9.7 FL (9.6-12.0); Monocytes % 5.3 % (1.7-12.7); Neutrophils % 73.6 % (38.7-73.9); Platelet Count 227 T/CUMM (130-400); Red Blood Count 2.52 MC/CUMM (3.8-5.5); Red Cell Distribution Width 15.9 % (9.3-17.3); White Blood Count 5.8 T/CUMM (4-12)
[2019-11-17 11:14] LABS: Hypochromasia 2+; Microcytosis Slight; Ovalocytes Slight; Platelet Estimate Adequate
[2019-11-17 11:27] LABS: Calcium 9.4 MG/DL (8.5-10.1); Osmolality,Calculated 271.5 MOS/KG (273-304)
[2019-11-17] MEDS: traMADol 50 MG TABLET PO PRN (14:34)
[2019-11-17] MEDS: ASPIRIN 325 MG TABLET PO SCH (14:35)
[2019-11-17] MEDS: ZINC OXIDE PASTE 113 GM TUBE TOP SCH ×2 (14:37→20:32)
[2019-11-17] MEDS: ACETAMINOPHEN 325 MG TABLET PO PRN (16:54)
[2019-11-17] MEDS ORDERED: ALUMINUM/MAGNES/SIMETH MAX STR 30 ML UDCUP PO PRN (17:39)
[2019-11-17] MEDS: DICLOFENAC 1% GEL 100 GM TUBE TOP SCH (20:31)
[2019-11-17] MEDS: ATORVASTATIN 40 MG TABLET PO SCH (20:32)
[2019-11-17] MEDS: MELATONIN 3 MG TABLET PO SCH (20:32)
[2019-11-17] MEDS: ALBUTEROL/IPRATROPIUM 3 ML NEB RESP TX PRN (23:27)
[2019-11-18] MEDS: INSULIN LISPRO 100 UNIT/ML SUBCUT SCH ×4 (00:59→18:49)
[2019-11-18] MEDS: ALBUTEROL/IPRATROPIUM 3 ML NEB RESP TX PRN ×3 (03:34→16:20)
[2019-11-18] MEDS: traMADol 50 MG TABLET PO PRN (04:53)
[2019-11-18] MEDS: FUROSEMIDE 40 MG/4 ML VIAL IV SCH ×2 (05:43→10:02)
[2019-11-18] MEDS: CLINDAMYCIN 300 MG CAPSULE PO SCH ×3 (07:41→22:16)
[2019-11-18 09:01] LABS: Basophils # 0.1 10*3/uL (0.0-0.2); Basophils % 0.6 % (0.0-0.8); Eosinophils % 0.3 % (0.00-10.9); Hemoglobin 7.6 GM/DL (12.0-16.0); Immature Granulocytes % 1.1 %; Immature Granulocytes Absolute 0.12 #; Lymphocytes # 0.6 10*3/uL (1.4-4.0); Lymphocytes % 5.7 % (21.3-54.2); Mean Corpuscular HGB Conc 29.2 GM/DL (32-36); Mean Corpuscular Volume 93.5 FL (87-102); Mean Platelet Volume 10.4 FL (9.6-12.0); Monocytes % 4.4 % (1.7-12.7); Neutrophils % 87.9 % (38.7-73.9); Platelet Count 257 T/CUMM (130-400); Red Blood Count 2.78 MC/CUMM (3.8-5.5); Red Cell Distribution Width 15.8 % (9.3-17.3); White Blood Count 10.9 T/CUMM (4-12)
[2019-11-18 09:14] LABS: Calcium 10.6 MG/DL (8.5-10.1); Osmolality,Calculated 274.9 MOS/KG (273-304)
[2019-11-18 09:18] LABS: Hypochromasia 2+; Platelet Estimate Adequate
[2019-11-18 09:19] LABS: Microcytosis Slight
[2019-11-18] MEDS: ZINC OXIDE PASTE 113 GM TUBE TOP SCH ×2 (10:03→22:31)
[2019-11-18] MEDS: DICLOFENAC 1% GEL 100 GM TUBE TOP SCH ×3 (10:03→22:20)
[2019-11-18 10:38] LABS: ABG Base Excess -2.3 MMOL/L (-2.5-2.5); ABG HCO3 22.5 MMOL/L (20-26); ABG Oxygen Saturation 97.1 % (95-100); ABG PCO2 47.4 MM HG (35-48); ABG PH 7.312 (7.35-7.45); ABG PO2 88.9 MM HG (80-95); ABG TCO2 22.6 MMOL/L (23-27)
[2019-11-18] MEDS: SEVELAMER CARBONATE POWDER 2.4 GM PACK PO SCH (10:38)
[2019-11-18] MEDS: GABAPENTIN 100 MG CAPSULE PO SCH (10:39)
[2019-11-18] MEDS: FERROUS SULFATE 325 MG TABLET PO SCH (10:39)
[2019-11-18] MEDS: PANTOPRAZOLE 40 MG TABLET PO SCH (10:39)
[2019-11-18] MEDS: PARoxetine 10 MG TABLET PO SCH ×2 (10:39→15:22)
[2019-11-18] MEDS: ASPIRIN 325 MG TABLET PO SCH (10:39)
[2019-11-18] MEDS: DOCUSATE SODIUM 100 MG CAPSULE PO SCH ×3 (10:39→22:16)
[2019-11-18] MEDS ORDERED: ROPIVACAINE 0.5% 30 ML VIAL ONE (10:40)
[2019-11-18 11:40] LABS: Calcium 10.2 MG/DL (8.5-10.1); Osmolality,Calculated 285.4 MOS/KG (273-304)
[2019-11-18] MEDS: LIDOCAINE 5% PATCH TRANSDERM SCH (15:16)
[2019-11-18] MEDS: ONDANSETRON 4 MG/2 ML VIAL IV PRN (15:17)
[2019-11-18] MEDS ORDERED: SODIUM CHLORIDE 0.9% 1,000 ML IV PRN (19:07)
[2019-11-18] MEDS: ATORVASTATIN 40 MG TABLET PO SCH (22:16)
[2019-11-18] MEDS: BISACODYL 5 MG TABLET PO SCH (22:16)
[2019-11-18] MEDS: MELATONIN 3 MG TABLET PO SCH (22:20)
[2019-11-19] MEDS: ALBUTEROL/IPRATROPIUM 3 ML NEB RESP TX PRN ×2 (02:11→09:30)
[2019-11-19 05:36] LABS: Basophils # 0.1 10*3/uL (0.0-0.2); Basophils % 0.6 % (0.0-0.8); Eosinophils % 0.1 % (0.00-10.9); Hematocrit 25.7 VOL% (35.7-47.0); Hemoglobin 7.5 GM/DL (12.0-16.0); Immature Granulocytes % 1.4 %; Immature Granulocytes Absolute 0.19 #; Lymphocytes # 0.8 10*3/uL (1.4-4.0); Lymphocytes % 6.3 % (21.3-54.2); Mean Corpuscular HGB Conc 29.2 GM/DL (32-36); Mean Corpuscular Volume 94.8 FL (87-102); Mean Platelet Volume 10.7 FL (9.6-12.0); Monocytes % 3.5 % (1.7-12.7); Neutrophils % 88.1 % (38.7-73.9); Platelet Count 323 T/CUMM (130-400); Red Blood Count 2.71 MC/CUMM (3.8-5.5); Red Cell Distribution Width 16.2 % (9.3-17.3); White Blood Count 13.4 T/CUMM (4-12)
[2019-11-19 05:50] LABS: Hypochromasia 1+
[2019-11-19 05:51] LABS: Anisocytosis 1+; Ovalocytes Slight; Platelet Estimate Normal; Polychromasia Slight
[2019-11-19 05:51] LABS: Calcium 10.8 MG/DL (8.5-10.1); Osmolality,Calculated 287.4 MOS/KG (273-304)
[2019-11-19] MEDS: INSULIN LISPRO 100 UNIT/ML SUBCUT SCH ×4 (05:56→17:30)
[2019-11-19] MEDS: CLINDAMYCIN 300 MG CAPSULE PO SCH ×3 (06:46→21:21)
[2019-11-19] MEDS ORDERED: FUROSEMIDE 100 MG/10 ML VIAL ONE (09:51)
[2019-11-19] MEDS ORDERED: FUROSEMIDE 20 MG/2 ML VIAL ONE (09:52)
[2019-11-19] MEDS: ASPIRIN 325 MG TABLET PO SCH (11:13)
[2019-11-19] MEDS: PARoxetine 10 MG TABLET PO SCH (11:13)
[2019-11-19] MEDS: DOCUSATE SODIUM 100 MG CAPSULE PO SCH ×3 (11:13→21:22)
[2019-11-19] MEDS: PANTOPRAZOLE 40 MG TABLET PO SCH (11:13)
[2019-11-19] MEDS: GABAPENTIN 100 MG CAPSULE PO SCH (11:14)
[2019-11-19] MEDS: FERROUS SULFATE 325 MG TABLET PO SCH (11:14)
[2019-11-19] MEDS: ZINC OXIDE PASTE 113 GM TUBE TOP SCH ×2 (11:15→21:22)
[2019-11-19] MEDS: SEVELAMER CARBONATE POWDER 2.4 GM PACK PO SCH (11:15)
[2019-11-19] MEDS: FUROSEMIDE 40 MG/4 ML VIAL IV SCH (11:15)
[2019-11-19] MEDS: BISACODYL 5 MG TABLET PO SCH ×2 (11:18→21:21)
[2019-11-19] MEDS: DICLOFENAC 1% GEL 100 GM TUBE TOP SCH ×3 (11:35→21:23)
[2019-11-19] MEDS: LIDOCAINE 5% PATCH TRANSDERM SCH (15:39)
[2019-11-19] MEDS ORDERED: SODIUM CHLORIDE 0.9% 1,000 ML IV SCH (16:00)
[2019-11-19 16:19] LABS: ABG Base Excess -2.4 MMOL/L (-2.5-2.5); ABG HCO3 22.4 MMOL/L (20-26); ABG Oxygen Saturation 97.9 % (95-100); ABG PCO2 52.4 MM HG (35-48); ABG PH 7.278 (7.35-7.45); ABG PO2 99.7 MM HG (80-95); ABG TCO2 23.4 MMOL/L (23-27)
[2019-11-19 16:26] LABS: Alanine Aminotransferase 13 U/L (13-56); Albumin 2.6 G/DL (3.4-5.0); Alkaline Phosphatase 98 U/L (45-117); Aspartate Amino Transferase 38 U/L (0-37); Bilirubin,Total < 0.39 MG/DL (0.2-1.0); Blood Urea Nitrogen 56 MG/DL (7-18); Calcium 11.2 MG/DL (8.5-10.1); Estimated Glom Filtration Rate 11 ML/MIN; Glucose 236 MG/DL (74-106); Osmolality,Calculated 283.8 MOS/KG (273-304); PT Patient Result 10.9 SECS (9.8-11.9); Total Protein 6.7 G/DL (6.4-8.3)
[2019-11-19 16:30] LABS: Basophils % 0.2 % (0.0-0.8); Hematocrit 26.5 VOL% (35.7-47.0); Hemoglobin 7.6 GM/DL (12.0-16.0); Immature Granulocytes % 1.2 %; Immature Granulocytes Absolute 0.13 #; Lymphocytes # 0.5 10*3/uL (1.4-4.0); Lymphocytes % 5.2 % (21.3-54.2); Mean Corpuscular HGB Conc 28.7 GM/DL (32-36); Mean Corpuscular Volume 95.7 FL (87-102); Mean Platelet Volume 10.2 FL (9.6-12.0); Monocytes % 2.1 % (1.7-12.7); Neutrophils % 91.3 % (38.7-73.9); Platelet Count 296 T/CUMM (130-400); Red Blood Count 2.77 MC/CUMM (3.8-5.5); Red Cell Distribution Width 16.1 % (9.3-17.3); White Blood Count 10.4 T/CUMM (4-12)
[2019-11-19 16:36] LABS: Lymphocytes 7 % (20-55); Platelet Estimate Normal; Segmented Neutrophils 92 % (50-85); Total Cells Counted 100
[2019-11-19 16:37] LABS: Hypochromasia 1+; Macrocytosis Slight
[2019-11-19] MEDS: MELATONIN 3 MG TABLET PO SCH (21:22)
[2019-11-19] MEDS: ATORVASTATIN 40 MG TABLET PO SCH (21:22)
[2019-11-20] MEDS: INSULIN LISPRO 100 UNIT/ML SUBCUT SCH ×5 (01:23→19:35)
[2019-11-20] MEDS: ALBUTEROL/IPRATROPIUM 3 ML NEB RESP TX PRN (02:20)
[2019-11-20 04:22] LABS: ABG Base Excess -1.2 MMOL/L (-2.5-2.5); ABG Oxygen Saturation 96.8 % (95-100); ABG PCO2 42.1 MM HG (35-48); ABG PH 7.373 (7.35-7.45); ABG PO2 89.5 MM HG (80-95); ABG TCO2 25.2 MMOL/L (23-27); Allen Test Positive
[2019-11-20 04:46] LABS: Basophils % 0.3 % (0.0-0.8); Eosinophils % 0.1 % (0.00-10.9); Hematocrit 24.6 VOL% (35.7-47.0); Immature Granulocytes % 1.4 %; Immature Granulocytes Absolute 0.16 #; Lymphocytes # 0.9 10*3/uL (1.4-4.0); Lymphocytes % 8.1 % (21.3-54.2); Mean Corpuscular HGB Conc 28.5 GM/DL (32-36); Mean Corpuscular Volume 95.3 FL (87-102); Mean Platelet Volume 10.7 FL (9.6-12.0); Monocytes % 5.2 % (1.7-12.7); NRBC # 0.03 10*3/uL; Neutrophils % 84.9 % (38.7-73.9); Platelet Count 299 T/CUMM (130-400); Red Blood Count 2.58 MC/CUMM (3.8-5.5); Red Cell Distribution Width 16.5 % (9.3-17.3); White Blood Count 11.5 T/CUMM (4-12)
[2019-11-20 05:01] LABS: Osmolality,Calculated 280.5 MOS/KG (273-304)
[2019-11-20 06:12] LABS: Anisocytosis 1+; Platelet Estimate Normal
[2019-11-20] MEDS: CLINDAMYCIN 300 MG CAPSULE PO SCH ×3 (06:37→21:14)
[2019-11-20] MEDS ORDERED: ALTEPLASE 2 MG VIAL IV ONE ×2 (09:00→11:00)
[2019-11-20] MEDS: FUROSEMIDE 40 MG/4 ML VIAL IV SCH (09:42)
[2019-11-20] MEDS: LIDOCAINE 5% PATCH TRANSDERM SCH (09:45)
[2019-11-20] MEDS: ASPIRIN 325 MG TABLET PO SCH (09:45)
[2019-11-20] MEDS: MULTIVITAMIN (BEROCCA) TABLET PO SCH (09:45)
[2019-11-20] MEDS: PARoxetine 10 MG TABLET PO SCH (09:45)
[2019-11-20] MEDS: DOCUSATE SODIUM 100 MG CAPSULE PO SCH ×3 (09:45→21:14)
[2019-11-20] MEDS: ZINC OXIDE PASTE 113 GM TUBE TOP SCH (09:45)
[2019-11-20] MEDS: PANTOPRAZOLE 40 MG TABLET PO SCH (09:45)
[2019-11-20] MEDS: BISACODYL 5 MG TABLET PO SCH ×2 (09:45→21:13)
[2019-11-20] MEDS: GABAPENTIN 100 MG CAPSULE PO SCH (09:45)
[2019-11-20] MEDS: FERROUS SULFATE 325 MG TABLET PO SCH (09:45)
[2019-11-20] MEDS: SEVELAMER CARBONATE POWDER 2.4 GM PACK PO SCH (09:45)
[2019-11-20] MEDS: DICLOFENAC 1% GEL 100 GM TUBE TOP SCH ×3 (11:40→21:22)
[2019-11-20] MEDS: MELATONIN 3 MG TABLET PO SCH (21:13)
[2019-11-20] MEDS: ATORVASTATIN 40 MG TABLET PO SCH (21:14)
[2019-11-21] MEDS: ZINC OXIDE PASTE 113 GM TUBE TOP SCH ×3 (01:18→21:11)
[2019-11-21] MEDS: INSULIN LISPRO 100 UNIT/ML SUBCUT SCH ×4 (01:33→18:29)
[2019-11-21 05:07] LABS: Basophils # 0.1 10*3/uL (0.0-0.2); Basophils % 0.6 % (0.0-0.8); Eosinophils # 0.1 10*3/uL (0.0-0.87); Eosinophils % 0.7 % (0.00-10.9); Hematocrit 31.3 VOL% (35.7-47.0); Hemoglobin 9.6 GM/DL (12.0-16.0); Immature Granulocytes % 1.1 %; Lymphocytes % 10.5 % (21.3-54.2); Mean Corpuscular HGB Conc 30.7 GM/DL (32-36); Mean Corpuscular Volume 89.7 FL (87-102); Mean Platelet Volume 10.6 FL (9.6-12.0); Monocytes % 5.4 % (1.7-12.7); NRBC # 0.03 10*3/uL; Neutrophils % 81.7 % (38.7-73.9); Platelet Count 265 T/CUMM (130-400); Red Blood Count 3.49 MC/CUMM (3.8-5.5); Red Cell Distribution Width 16.8 % (9.3-17.3); White Blood Count 9.1 T/CUMM (4-12)
[2019-11-21 05:24] LABS: Osmolality,Calculated 278.1 MOS/KG (273-304)
[2019-11-21] MEDS: CLINDAMYCIN 300 MG CAPSULE PO SCH ×3 (06:20→21:11)
[2019-11-21] MEDS: DICLOFENAC 1% GEL 100 GM TUBE TOP SCH ×3 (12:40→21:11)
[2019-11-21] MEDS: MULTIVITAMIN (BEROCCA) TABLET PO SCH (12:52)
[2019-11-21] MEDS: PANTOPRAZOLE 40 MG TABLET PO SCH (12:52)
[2019-11-21] MEDS: ASPIRIN 325 MG TABLET PO SCH (12:53)
[2019-11-21] MEDS: GABAPENTIN 100 MG CAPSULE PO SCH (12:53)
[2019-11-21] MEDS: FUROSEMIDE 40 MG/4 ML VIAL IV SCH (12:53)
[2019-11-21] MEDS: PARoxetine 10 MG TABLET PO SCH (12:53)
[2019-11-21] MEDS: BISACODYL 5 MG TABLET PO SCH ×2 (12:53→21:11)
[2019-11-21] MEDS: DOCUSATE SODIUM 100 MG CAPSULE PO SCH ×3 (12:53→21:11)
[2019-11-21] MEDS: FERROUS SULFATE 325 MG TABLET PO SCH (12:54)
[2019-11-21] MEDS: LIDOCAINE 5% PATCH TRANSDERM SCH (13:06)
[2019-11-21] MEDS: SEVELAMER CARBONATE POWDER 2.4 GM PACK PO SCH (13:33)
[2019-11-21] MEDS: ACETAMINOPHEN 325 MG TABLET PO PRN ×2 (17:10→23:53)
[2019-11-21] MEDS: MELATONIN 3 MG TABLET PO SCH (21:10)
[2019-11-21] MEDS: ATORVASTATIN 40 MG TABLET PO SCH (21:11)
[2019-11-22] MEDS: INSULIN LISPRO 100 UNIT/ML SUBCUT SCH ×4 (01:41→17:27)
[2019-11-22] MEDS: CLINDAMYCIN 300 MG CAPSULE PO SCH (05:34)
[2019-11-22 05:55] LABS: Basophils # 0.1 10*3/uL (0.0-0.2); Eosinophils # 0.1 10*3/uL (0.0-0.87); Eosinophils % 1.8 % (0.00-10.9); Hematocrit 33.1 VOL% (35.7-47.0); Hemoglobin 9.8 GM/DL (12.0-16.0); Immature Granulocytes % 1.3 %; Lymphocytes # 1.4 10*3/uL (1.4-4.0); Lymphocytes % 17.4 % (21.3-54.2); Mean Corpuscular HGB Conc 29.6 GM/DL (32-36); Mean Corpuscular Volume 92.7 FL (87-102); Mean Platelet Volume 10.3 FL (9.6-12.0); Monocytes % 9.2 % (1.7-12.7); NRBC # 0.02 10*3/uL; Neutrophils % 69.3 % (38.7-73.9); Platelet Count 246 T/CUMM (130-400); Red Blood Count 3.57 MC/CUMM (3.8-5.5); Red Cell Distribution Width 16.5 % (9.3-17.3); White Blood Count 7.8 T/CUMM (4-12)
[2019-11-22 06:33] LABS: Alanine Aminotransferase 12 U/L (13-56); Albumin 2.3 G/DL (3.4-5.0); Alkaline Phosphatase 89 U/L (45-117); Aspartate Amino Transferase 18 U/L (0-37); Bilirubin,Total < 0.39 MG/DL (0.2-1.0); Blood Urea Nitrogen 33 MG/DL (7-18); Calcium 10.1 MG/DL (8.5-10.1); Estimated Glom Filtration Rate 18 ML/MIN; Glucose 143 MG/DL (74-106); Osmolality,Calculated 278.1 MOS/KG (273-304); Total Protein 5.9 G/DL (6.4-8.3)
[2019-11-22] MEDS: LIDOCAINE 5% PATCH TRANSDERM SCH (09:10)
[2019-11-22] MEDS: SEVELAMER CARBONATE POWDER 2.4 GM PACK PO SCH (09:10)
[2019-11-22] MEDS: FUROSEMIDE 40 MG/4 ML VIAL IV SCH (09:11)
[2019-11-22] MEDS: PARoxetine 10 MG TABLET PO SCH (09:12)
[2019-11-22] MEDS: MULTIVITAMIN (BEROCCA) TABLET PO SCH (09:12)
[2019-11-22] MEDS: ASPIRIN 325 MG TABLET PO SCH (09:13)
[2019-11-22] MEDS: GABAPENTIN 100 MG CAPSULE PO SCH (09:13)
[2019-11-22] MEDS: PANTOPRAZOLE 40 MG TABLET PO SCH (09:13)
[2019-11-22] MEDS: DICLOFENAC 1% GEL 100 GM TUBE TOP SCH ×3 (09:14→20:47)
[2019-11-22] MEDS: FERROUS SULFATE 325 MG TABLET PO SCH (09:14)
[2019-11-22] MEDS: BISACODYL 5 MG TABLET PO SCH ×2 (09:14→20:47)
[2019-11-22] MEDS: ZINC OXIDE PASTE 113 GM TUBE TOP SCH ×2 (09:14→20:47)
[2019-11-22] MEDS: DOCUSATE SODIUM 100 MG CAPSULE PO SCH ×3 (09:14→20:47)
[2019-11-22] MEDS: ONDANSETRON 4 MG/2 ML VIAL IV PRN ×2 (10:55→17:06)
[2019-11-22] MEDS: ACETAMINOPHEN 325 MG TABLET PO PRN (16:47)
[2019-11-22] MEDS: MELATONIN 3 MG TABLET PO SCH (20:47)
[2019-11-22] MEDS: ATORVASTATIN 40 MG TABLET PO SCH (20:47)
[2019-11-23] MEDS: INSULIN LISPRO 100 UNIT/ML SUBCUT SCH ×4 (01:42→17:13)
[2019-11-23 05:46] LABS: Basophils # 0.1 10*3/uL (0.0-0.2); Basophils % 0.7 % (0.0-0.8); Eosinophils # 0.3 10*3/uL (0.0-0.87); Eosinophils % 2.6 % (0.00-10.9); Hematocrit 33.2 VOL% (35.7-47.0); Hemoglobin 9.9 GM/DL (12.0-16.0); Immature Granulocytes % 1.2 %; Immature Granulocytes Absolute 0.12 #; Lymphocytes # 1.4 10*3/uL (1.4-4.0); Lymphocytes % 13.7 % (21.3-54.2); Mean Corpuscular HGB Conc 29.8 GM/DL (32-36); Mean Corpuscular Volume 92.2 FL (87-102); Mean Platelet Volume 10.3 FL (9.6-12.0); Monocytes % 6.9 % (1.7-12.7); Neutrophils % 74.9 % (38.7-73.9); Platelet Count 243 T/CUMM (130-400); Red Cell Distribution Width 16.1 % (9.3-17.3); White Blood Count 10.2 T/CUMM (4-12)
[2019-11-23 06:10] LABS: Alanine Aminotransferase 11 U/L (13-56); Albumin 2.2 G/DL (3.4-5.0); Alkaline Phosphatase 87 U/L (45-117); Aspartate Amino Transferase 14 U/L (0-37); Bilirubin,Total < 0.39 MG/DL (0.2-1.0); Blood Urea Nitrogen 47 MG/DL (7-18); Calcium 11.4 MG/DL (8.5-10.1); Estimated Glom Filtration Rate 13 ML/MIN; Glucose 94 MG/DL (74-106); Total Protein 5.6 G/DL (6.4-8.3)
[2019-11-23] MEDS: SEVELAMER CARBONATE POWDER 2.4 GM PACK PO SCH (09:45)
[2019-11-23] MEDS: PANTOPRAZOLE 40 MG TABLET PO SCH (09:46)
[2019-11-23] MEDS: DOCUSATE SODIUM 100 MG CAPSULE PO SCH ×3 (09:46→21:12)
[2019-11-23] MEDS: ASPIRIN 325 MG TABLET PO SCH (09:46)
[2019-11-23] MEDS: MULTIVITAMIN (BEROCCA) TABLET PO SCH (09:46)
[2019-11-23] MEDS: FERROUS SULFATE 325 MG TABLET PO SCH (09:46)
[2019-11-23] MEDS: GABAPENTIN 100 MG CAPSULE PO SCH (09:46)
[2019-11-23] MEDS: PARoxetine 10 MG TABLET PO SCH (09:46)
[2019-11-23] MEDS: BISACODYL 5 MG TABLET PO SCH ×2 (09:46→21:12)
[2019-11-23] MEDS ORDERED: ROPIVACAINE 0.5% 30 ML VIAL ONE (10:25)
[2019-11-23] MEDS: ZINC OXIDE PASTE 113 GM TUBE TOP SCH ×2 (10:39→21:12)
[2019-11-23] MEDS: LIDOCAINE 5% PATCH TRANSDERM SCH (10:39)
[2019-11-23] MEDS: DICLOFENAC 1% GEL 100 GM TUBE TOP SCH ×3 (10:39→21:12)
[2019-11-23] MEDS: FUROSEMIDE 40 MG/4 ML VIAL IV SCH (10:39)
[2019-11-23] MEDS ORDERED: TISSUE ADHESIVE 1 EACH APPLICATOR TOP ONE (13:25)
[2019-11-23] MEDS ORDERED: propofoL 200 MG/20 ML VIAL IV ONE (13:57)
[2019-11-23] MEDS ORDERED: fentaNYL 100 MCG/2 ML VIAL ONE (13:57)
[2019-11-23] MEDS ORDERED: MIDAZOLAM 2 MG/2 ML VIAL ONE (13:57)
[2019-11-23] MEDS ORDERED: FLUCONAZOLE 200 MG TABLET PO ONE (14:24)
[2019-11-23] MEDS: MELATONIN 3 MG TABLET PO SCH (21:11)
[2019-11-23] MEDS: ATORVASTATIN 40 MG TABLET PO SCH (21:12)
[2019-11-24] MEDS: INSULIN LISPRO 100 UNIT/ML SUBCUT SCH ×4 (00:56→18:35)
[2019-11-24 06:04] LABS: Basophils # 0.1 10*3/uL (0.0-0.2); Basophils % 0.9 % (0.0-0.8); Eosinophils # 0.3 10*3/uL (0.0-0.87); Eosinophils % 3.7 % (0.00-10.9); Hematocrit 33.3 VOL% (35.7-47.0); Hemoglobin 9.9 GM/DL (12.0-16.0); Immature Granulocytes % 1.1 %; Lymphocytes % 11.1 % (21.3-54.2); Mean Corpuscular HGB Conc 29.7 GM/DL (32-36); Mean Corpuscular Volume 92.2 FL (87-102); Mean Platelet Volume 10.5 FL (9.6-12.0); Neutrophils % 77.2 % (38.7-73.9); Platelet Count 251 T/CUMM (130-400); Red Blood Count 3.61 MC/CUMM (3.8-5.5); White Blood Count 8.8 T/CUMM (4-12)
[2019-11-24 06:39] LABS: Albumin 2.3 G/DL (3.4-5.0); Bilirubin,Total 0.7 MG/DL (0.2-1.0); Calcium 11.6 MG/DL (8.5-10.1); Osmolality,Calculated 287.2 MOS/KG (273-304); Total Protein 5.9 G/DL (6.4-8.3)
[2019-11-24] MEDS: SEVELAMER CARBONATE POWDER 2.4 GM PACK PO SCH (08:11)
[2019-11-24] MEDS: BISACODYL 5 MG TABLET PO SCH ×2 (08:12→20:07)
[2019-11-24] MEDS: DOCUSATE SODIUM 100 MG CAPSULE PO SCH ×3 (08:12→20:07)
[2019-11-24] MEDS: ASPIRIN 325 MG TABLET PO SCH (08:13)
[2019-11-24] MEDS: FLUCONAZOLE 100 MG TABLET PO SCH (08:13)
[2019-11-24] MEDS: FERROUS SULFATE 325 MG TABLET PO SCH (08:13)
[2019-11-24] MEDS: PARoxetine 10 MG TABLET PO SCH (08:13)
[2019-11-24] MEDS: PANTOPRAZOLE 40 MG TABLET PO SCH (08:13)
[2019-11-24] MEDS: MULTIVITAMIN (BEROCCA) TABLET PO SCH (08:13)
[2019-11-24] MEDS: GABAPENTIN 100 MG CAPSULE PO SCH (08:13)
[2019-11-24] MEDS: DICLOFENAC 1% GEL 100 GM TUBE TOP SCH ×3 (08:14→20:08)
[2019-11-24] MEDS: ZINC OXIDE PASTE 113 GM TUBE TOP SCH ×2 (08:14→20:07)
[2019-11-24] MEDS: LIDOCAINE 5% PATCH TRANSDERM SCH (08:14)
[2019-11-24] MEDS: FUROSEMIDE 40 MG/4 ML VIAL IV SCH (08:14)
[2019-11-24] MEDS: ACETAMINOPHEN 325 MG TABLET PO PRN (10:16)
[2019-11-24] MEDS: MELATONIN 3 MG TABLET PO SCH (20:07)
[2019-11-24] MEDS: ATORVASTATIN 40 MG TABLET PO SCH (20:07)
[2019-11-25] MEDS: INSULIN LISPRO 100 UNIT/ML SUBCUT SCH ×2 (00:50→06:43)
[2019-11-25 05:41] LABS: Basophils # 0.1 10*3/uL (0.0-0.2); Basophils % 1.1 % (0.0-0.8); Eosinophils # 0.4 10*3/uL (0.0-0.87); Eosinophils % 5.1 % (0.00-10.9); Hematocrit 34.1 VOL% (35.7-47.0); Hemoglobin 10.2 GM/DL (12.0-16.0); Immature Granulocytes % 1.5 %; Immature Granulocytes Absolute 0.11 #; Lymphocytes # 1.1 10*3/uL (1.4-4.0); Lymphocytes % 14.2 % (21.3-54.2); Mean Corpuscular HGB Conc 29.9 GM/DL (32-36); Mean Corpuscular Volume 93.9 FL (87-102); Mean Platelet Volume 10.3 FL (9.6-12.0); Monocytes % 8.1 % (1.7-12.7); Platelet Count 231 T/CUMM (130-400); Red Blood Count 3.63 MC/CUMM (3.8-5.5); Red Cell Distribution Width 16.3 % (9.3-17.3); White Blood Count 7.4 T/CUMM (4-12)
[2019-11-25 05:59] LABS: Albumin 2.2 G/DL (3.4-5.0); Bilirubin,Total 0.8 MG/DL (0.2-1.0); Calcium 10.7 MG/DL (8.5-10.1); Osmolality,Calculated 283.2 MOS/KG (273-304); Total Protein 5.8 G/DL (6.4-8.3)
[2019-11-25] MEDS: SEVELAMER CARBONATE POWDER 2.4 GM PACK PO SCH (08:25)
[2019-11-25] MEDS: PANTOPRAZOLE 40 MG TABLET PO SCH (08:26)
[2019-11-25] MEDS: BISACODYL 5 MG TABLET PO SCH (08:26)
[2019-11-25] MEDS: GABAPENTIN 100 MG CAPSULE PO SCH (08:26)
[2019-11-25] MEDS: FLUCONAZOLE 100 MG TABLET PO SCH (08:27)
[2019-11-25] MEDS: ASPIRIN 325 MG TABLET PO SCH (08:27)
[2019-11-25] MEDS: DOCUSATE SODIUM 100 MG CAPSULE PO SCH ×2 (08:27)
[2019-11-25] MEDS: PARoxetine 10 MG TABLET PO SCH (08:27)
[2019-11-25] MEDS: ACETAMINOPHEN 325 MG TABLET PO PRN (08:27)
[2019-11-25] MEDS: FERROUS SULFATE 325 MG TABLET PO SCH (08:27)
[2019-11-25] MEDS: MULTIVITAMIN (BEROCCA) TABLET PO SCH (08:27)
[2019-11-25] MEDS: DICLOFENAC 1% GEL 100 GM TUBE TOP SCH (08:28)
[2019-11-25] MEDS: FUROSEMIDE 40 MG/4 ML VIAL IV SCH (08:28)
[2019-11-25] MEDS: LIDOCAINE 5% PATCH TRANSDERM SCH (08:28)
[2019-11-25] MEDS: ZINC OXIDE PASTE 113 GM TUBE TOP SCH (08:31)
[2019-11-25 09:03] VITALS: BP 136/59
== END 2019-11-25 11:42 | DRG 981 ==
LOC: EDUNIT# → N.ED 15:09 → SUATTDRO 18:14 → N.EDINP 18:14 → N.3E 20:33 → N.ICU 11-19 16:36 → N.TELES 11-20 18:50
PROVIDERS: ADMIT Internal Medicine; ATTEND Internal Medicine

== ENCOUNTER 2019-12-19 17:36 | Inpatient (IN) ==
[2019-12-19] MEDS ORDERED: methylPREDNISolone SOD SUC 125 MG/2 ML VIAL IV STA (18:31)
[2019-12-19] MEDS ORDERED: ALBUTEROL/IPRATROPIUM 3 ML NEB RESP TX STA (18:31)
[2019-12-19 18:47] LABS: Basophils # 0.2 10*3/uL (0.0-0.2); Basophils % 0.8 % (0.0-0.8); Eosinophils # 0.7 10*3/uL (0.0-0.87); Eosinophils % 2.8 % (0.00-10.9); Hematocrit 32.1 VOL% (35.7-47.0); Hemoglobin 9.2 GM/DL (12.0-16.0); Immature Granulocytes Absolute 0.49 #; Lymphocytes # 1.8 10*3/uL (1.4-4.0); Lymphocytes % 7.3 % (21.3-54.2); Mean Corpuscular HGB Conc 28.7 GM/DL (32-36); Mean Platelet Volume 10.4 FL (9.6-12.0); Monocytes % 4.3 % (1.7-12.7); NRBC # 0.02 10*3/uL; Neutrophils % 82.8 % (38.7-73.9); Platelet Count 364 T/CUMM (130-400); Red Blood Count 3.31 MC/CUMM (3.8-5.5); Red Cell Distribution Width 16.6 % (9.3-17.3); White Blood Count 24.2 T/CUMM (4-12)
[2019-12-19] MEDS ORDERED: NITROGLYCERIN 2% OINT 1 INCH/GM PACK TOP STA (18:47)
[2019-12-19 19:00] LABS: ABG Base Excess 2.5 MMOL/L (-2.5-2.5); ABG HCO3 26.6 MMOL/L (20-26); ABG Oxygen Saturation 93.7 % (95-100); ABG PCO2 67.5 MM HG (35-48); ABG PH 7.269 (7.35-7.45); ABG PO2 71.8 MM HG (80-95); ABG TCO2 28.9 MMOL/L (23-27); Allen Test Positive
[2019-12-19 19:07] LABS: Bilirubin,Total 0.6 MG/DL (0.2-1.0); Calcium 6.9 MG/DL (8.5-10.1); Osmolality,Calculated 282.2 MOS/KG (273-304); Total Protein 6.9 G/DL (6.4-8.3)
[2019-12-19 19:11] LABS: Eosinophils 1 % (0-10); Lymphocytes 9 % (20-55); Segmented Neutrophils 84 % (50-85); Total Cells Counted 100
[2019-12-19 19:12] LABS: Microcytosis Slight; Platelet Estimate Normal
[2019-12-19 19:21] LABS: Ferritin 2510.4 ng/ml (8-252)
[2019-12-19] MEDS ORDERED: PIPERACILLIN/TAZOBACTAM 3,375 MG in SODIUM CHLORIDE 0.9% 100 ML IV STA (20:09)
[2019-12-19] MEDS ORDERED: ONDANSETRON 4 MG/2 ML VIAL IV PRN (21:08)
[2019-12-19] MEDS ORDERED: ALBUTEROL/IPRATROPIUM 3 ML NEB RESP TX PRN (21:08)
[2019-12-19] MEDS ORDERED: DEXTROSE 50% 25 GM/50 ML VIAL IV PRN (21:19)
[2019-12-19] MEDS ORDERED: GLUCAGON 1 MG VIAL IM PRN (21:19)
[2019-12-19] MEDS: PIPERACILLIN/TAZOBACTAM 3,375 MG in SODIUM CHLORIDE 0.9% 100 ML IV SCH (23:03)
[2019-12-19] MEDS ORDERED: VANCOMYCIN INJ 1,000 MG in SODIUM CHLORIDE 0.9% 250 ML IV PRN (23:28)
[2019-12-19] MEDS: INSULIN REGULAR 100 UNIT/ML SUBCUT SCH (23:47)
[2019-12-20 05:46] LABS: Basophils % 0.2 % (0.0-0.8); Hematocrit 26.4 VOL% (35.7-47.0); Immature Granulocytes % 1.1 %; Immature Granulocytes Absolute 0.09 #; Lymphocytes # 0.6 10*3/uL (1.4-4.0); Lymphocytes % 6.5 % (21.3-54.2); Mean Corpuscular HGB Conc 30.3 GM/DL (32-36); Mean Corpuscular Volume 92.3 FL (87-102); Mean Platelet Volume 10.8 FL (9.6-12.0); Neutrophils % 90.2 % (38.7-73.9); Platelet Count 199 T/CUMM (130-400); Red Blood Count 2.86 MC/CUMM (3.8-5.5); Red Cell Distribution Width 16.3 % (9.3-17.3); White Blood Count 8.5 T/CUMM (4-12)
[2019-12-20] MEDS: PIPERACILLIN/TAZOBACTAM 3,375 MG in SODIUM CHLORIDE 0.9% 100 ML IV SCH ×3 (06:22→23:05)
[2019-12-20 06:24] LABS: Albumin 2.6 G/DL (3.4-5.0); Bilirubin,Total 0.4 MG/DL (0.2-1.0); Calcium 6.8 MG/DL (8.5-10.1); Total Protein 5.9 G/DL (6.4-8.3)
[2019-12-20] MEDS: INSULIN REGULAR 100 UNIT/ML SUBCUT SCH ×3 (06:24→17:29)
[2019-12-20] MEDS ORDERED: VANCOMYCIN INJ 2,000 MG in SODIUM CHLORIDE 0.9% 500 ML IV ONE (08:00)
[2019-12-20] MEDS: PANTOPRAZOLE 40 MG TABLET PO SCH (09:25)
[2019-12-20] MEDS: GABAPENTIN 100 MG CAPSULE PO SCH (09:25)
[2019-12-20] MEDS: LORATADINE 10 MG TABLET PO SCH ×2 (09:25→20:54)
[2019-12-20] MEDS: ASPIRIN 325 MG TABLET PO SCH (09:25)
[2019-12-20] MEDS: PARoxetine 10 MG TABLET PO SCH (09:25)
[2019-12-20] MEDS: ENOXAPARIN 40 MG/0.4 ML SYRINGE SUBCUT SCH (09:25)
[2019-12-20] MEDS: KETOTIFEN FUMARATE BOTH EYES SCH (09:33)
[2019-12-21] MEDS: INSULIN REGULAR 100 UNIT/ML SUBCUT SCH ×4 (02:47→18:11)
[2019-12-21 05:38] LABS: Basophils # 0.1 10*3/uL (0.0-0.2); Basophils % 0.5 % (0.0-0.8); Eosinophils # 0.3 10*3/uL (0.0-0.87); Eosinophils % 2.9 % (0.00-10.9); Hematocrit 27.1 VOL% (35.7-47.0); Hemoglobin 8.1 GM/DL (12.0-16.0); Immature Granulocytes % 0.8 %; Immature Granulocytes Absolute 0.07 #; Lymphocytes # 1.5 10*3/uL (1.4-4.0); Lymphocytes % 16.4 % (21.3-54.2); Mean Corpuscular HGB Conc 29.9 GM/DL (32-36); Mean Corpuscular Volume 94.1 FL (87-102); Mean Platelet Volume 10.4 FL (9.6-12.0); Monocytes % 5.9 % (1.7-12.7); Neutrophils % 73.5 % (38.7-73.9); Platelet Count 224 T/CUMM (130-400); Red Blood Count 2.88 MC/CUMM (3.8-5.5); Red Cell Distribution Width 16.6 % (9.3-17.3); White Blood Count 9.2 T/CUMM (4-12)
[2019-12-21 06:09] LABS: Albumin 2.5 G/DL (3.4-5.0); Bilirubin,Total 0.4 MG/DL (0.2-1.0); Calcium 6.5 MG/DL (8.5-10.1); Osmolality,Calculated 289.4 MOS/KG (273-304); Total Protein 5.9 G/DL (6.4-8.3)
[2019-12-21] MEDS ORDERED: POTASSIUM CHLORIDE 20 MEQ TABLET PO ONE (06:38)
[2019-12-21] MEDS: PIPERACILLIN/TAZOBACTAM 3,375 MG in SODIUM CHLORIDE 0.9% 100 ML IV SCH ×2 (06:38→18:12)
[2019-12-21] MEDS: GABAPENTIN 100 MG CAPSULE PO SCH (08:05)
[2019-12-21] MEDS: ENOXAPARIN 40 MG/0.4 ML SYRINGE SUBCUT SCH (08:05)
[2019-12-21] MEDS: LORATADINE 10 MG TABLET PO SCH ×2 (08:06→20:23)
[2019-12-21] MEDS: PARoxetine 10 MG TABLET PO SCH (08:06)
[2019-12-21] MEDS: PANTOPRAZOLE 40 MG TABLET PO SCH (08:06)
[2019-12-21] MEDS: KETOTIFEN FUMARATE BOTH EYES SCH (08:06)
[2019-12-21] MEDS: ASPIRIN 325 MG TABLET PO SCH (08:06)
[2019-12-21] MEDS ORDERED: VANCOMYCIN INJ 1,000 MG in SODIUM CHLORIDE 0.9% 250 ML IV ONE (17:00)
[2019-12-22] MEDS: INSULIN REGULAR 100 UNIT/ML SUBCUT SCH ×4 (00:46→17:40)
[2019-12-22 05:18] LABS: Basophils # 0.1 10*3/uL (0.0-0.2); Basophils % 0.8 % (0.0-0.8); Eosinophils # 0.7 10*3/uL (0.0-0.87); Eosinophils % 7.6 % (0.00-10.9); Hematocrit 29.7 VOL% (35.7-47.0); Hemoglobin 8.6 GM/DL (12.0-16.0); Immature Granulocytes Absolute 0.09 #; Lymphocytes # 1.5 10*3/uL (1.4-4.0); Lymphocytes % 15.9 % (21.3-54.2); Mean Corpuscular Volume 96.1 FL (87-102); Mean Platelet Volume 10.3 FL (9.6-12.0); Monocytes % 5.7 % (1.7-12.7); Platelet Count 251 T/CUMM (130-400); Red Blood Count 3.09 MC/CUMM (3.8-5.5); Red Cell Distribution Width 16.9 % (9.3-17.3); White Blood Count 9.2 T/CUMM (4-12)
[2019-12-22 05:29] LABS: Calcium 6.7 MG/DL (8.5-10.1)
[2019-12-22] MEDS: PIPERACILLIN/TAZOBACTAM 3,375 MG in SODIUM CHLORIDE 0.9% 100 ML IV SCH ×2 (06:33→20:05)
[2019-12-22] MEDS: GABAPENTIN 100 MG CAPSULE PO SCH (08:20)
[2019-12-22] MEDS: PARoxetine 10 MG TABLET PO SCH (08:20)
[2019-12-22] MEDS: ASPIRIN 325 MG TABLET PO SCH (08:20)
[2019-12-22] MEDS: HEPARIN 5,000 UNIT/1 ML VIAL SUBCUT SCH ×2 (08:20→17:01)
[2019-12-22] MEDS: PANTOPRAZOLE 40 MG TABLET PO SCH (08:20)
[2019-12-22] MEDS: LORATADINE 10 MG TABLET PO SCH ×2 (08:21→20:05)
[2019-12-22] MEDS: KETOTIFEN FUMARATE BOTH EYES SCH (08:21)
[2019-12-22] MEDS ORDERED: ENOXAPARIN 30 MG/0.3 ML SYRINGE SUBCUT SCH (09:00)
[2019-12-22] MEDS ORDERED: VANCOMYCIN INJ 1,000 MG in SODIUM CHLORIDE 0.9% 250 ML IV ONE (13:00)
[2019-12-22] MEDS: ACETAMINOPHEN 325 MG TABLET PO PRN (20:05)
[2019-12-23] MEDS: INSULIN REGULAR 100 UNIT/ML SUBCUT SCH ×4 (01:01→18:16)
[2019-12-23] MEDS: HEPARIN 5,000 UNIT/1 ML VIAL SUBCUT SCH ×3 (01:02→16:07)
[2019-12-23 05:16] LABS: Basophils # 0.1 10*3/uL (0.0-0.2); Basophils % 0.9 % (0.0-0.8); Eosinophils # 0.7 10*3/uL (0.0-0.87); Eosinophils % 10.3 % (0.00-10.9); Hematocrit 30.6 VOL% (35.7-47.0); Immature Granulocytes % 1.1 %; Immature Granulocytes Absolute 0.07 #; Lymphocytes # 1.6 10*3/uL (1.4-4.0); Lymphocytes % 24.6 % (21.3-54.2); Mean Corpuscular HGB Conc 29.4 GM/DL (32-36); Mean Corpuscular Volume 95.6 FL (87-102); Mean Platelet Volume 10.4 FL (9.6-12.0); Monocytes % 8.7 % (1.7-12.7); Neutrophils % 54.4 % (38.7-73.9); Platelet Count 221 T/CUMM (130-400); Red Cell Distribution Width 16.5 % (9.3-17.3); White Blood Count 6.3 T/CUMM (4-12)
[2019-12-23 05:40] LABS: Calcium 7.5 MG/DL (8.5-10.1); Osmolality,Calculated 283.7 MOS/KG (273-304)
[2019-12-23] MEDS: GABAPENTIN 100 MG CAPSULE PO SCH (08:44)
[2019-12-23] MEDS: PANTOPRAZOLE 40 MG TABLET PO SCH (08:44)
[2019-12-23] MEDS: METOPROLOL TARTRATE 25 MG TABLET PO SCH ×2 (08:44→22:03)
[2019-12-23] MEDS: PARoxetine 10 MG TABLET PO SCH (08:44)
[2019-12-23] MEDS: ASPIRIN 325 MG TABLET PO SCH (08:44)
[2019-12-23] MEDS: LORATADINE 10 MG TABLET PO SCH ×2 (08:44→22:03)
[2019-12-23] MEDS: PIPERACILLIN/TAZOBACTAM 3,375 MG in SODIUM CHLORIDE 0.9% 100 ML IV SCH ×2 (08:45→22:02)
[2019-12-23] MEDS: KETOTIFEN FUMARATE BOTH EYES SCH (08:45)
[2019-12-23] MEDS: ALBUTEROL/IPRATROPIUM 3 ML NEB RESP TX SCH ×2 (12:10→20:52)
[2019-12-23] MEDS: ACETAMINOPHEN 325 MG TABLET PO PRN (15:46)
[2019-12-23 17:29] LABS: Hepatitis B Surface Ag Quant < 0.10 Index; Hepatitis B Surface Ag Result Negative (Negative)
[2019-12-24] MEDS: ALBUTEROL/IPRATROPIUM 3 ML NEB RESP TX SCH ×4 (00:50→20:04)
[2019-12-24] MEDS: HEPARIN 5,000 UNIT/1 ML VIAL SUBCUT SCH ×3 (01:23→17:53)
[2019-12-24 04:03] LABS: Basophils # 0.1 10*3/uL (0.0-0.2); Basophils % 0.9 % (0.0-0.8); Eosinophils # 0.6 10*3/uL (0.0-0.87); Eosinophils % 9.4 % (0.00-10.9); Hematocrit 27.7 VOL% (35.7-47.0); Hemoglobin 8.1 GM/DL (12.0-16.0); Immature Granulocytes % 0.8 %; Immature Granulocytes Absolute 0.05 #; Lymphocytes # 1.6 10*3/uL (1.4-4.0); Lymphocytes % 23.8 % (21.3-54.2); Mean Corpuscular HGB Conc 29.2 GM/DL (32-36); Mean Corpuscular Volume 95.8 FL (87-102); Mean Platelet Volume 10.6 FL (9.6-12.0); Monocytes % 8.9 % (1.7-12.7); Neutrophils % 56.2 % (38.7-73.9); Platelet Count 204 T/CUMM (130-400); Red Blood Count 2.89 MC/CUMM (3.8-5.5); Red Cell Distribution Width 16.5 % (9.3-17.3); White Blood Count 6.6 T/CUMM (4-12)
[2019-12-24 04:37] LABS: Albumin 2.2 G/DL (3.4-5.0); Bilirubin,Total 0.4 MG/DL (0.2-1.0); Calcium 7.8 MG/DL (8.5-10.1); Osmolality,Calculated 289.7 MOS/KG (273-304); Total Protein 5.5 G/DL (6.4-8.3)
[2019-12-24] MEDS: INSULIN REGULAR 100 UNIT/ML SUBCUT SCH ×4 (04:59→18:01)
[2019-12-24] MEDS: LORATADINE 10 MG TABLET PO SCH ×2 (09:01→20:15)
[2019-12-24] MEDS: ASPIRIN 325 MG TABLET PO SCH (09:01)
[2019-12-24] MEDS: GABAPENTIN 100 MG CAPSULE PO SCH (09:01)
[2019-12-24] MEDS: PIPERACILLIN/TAZOBACTAM 3,375 MG in SODIUM CHLORIDE 0.9% 100 ML IV SCH ×2 (09:02→20:23)
[2019-12-24] MEDS: PARoxetine 10 MG TABLET PO SCH (09:02)
[2019-12-24] MEDS: PANTOPRAZOLE 40 MG TABLET PO SCH (09:02)
[2019-12-24] MEDS: METOPROLOL TARTRATE 25 MG TABLET PO SCH ×2 (09:02→20:32)
[2019-12-24] MEDS: KETOTIFEN FUMARATE BOTH EYES SCH (09:03)
[2019-12-24] MEDS ORDERED: VANCOMYCIN INJ 1,000 MG in SODIUM CHLORIDE 0.9% 250 ML IV ONE (17:00)
[2019-12-24] MEDS ORDERED: traMADol 50 MG TABLET PO PRN (19:35)
[2019-12-25] MEDS: INSULIN REGULAR 100 UNIT/ML SUBCUT SCH ×2 (01:12→05:54)
[2019-12-25] MEDS: HEPARIN 5,000 UNIT/1 ML VIAL SUBCUT SCH ×2 (01:12→08:00)
[2019-12-25] MEDS: ALBUTEROL/IPRATROPIUM 3 ML NEB RESP TX SCH ×2 (03:33→07:30)
[2019-12-25 07:21] VITALS: BP 122/34
[2019-12-25] MEDS: ASPIRIN 325 MG TABLET PO SCH (08:00)
[2019-12-25] MEDS: LORATADINE 10 MG TABLET PO SCH (08:00)
[2019-12-25] MEDS: PANTOPRAZOLE 40 MG TABLET PO SCH (08:00)
[2019-12-25] MEDS: PIPERACILLIN/TAZOBACTAM 3,375 MG in SODIUM CHLORIDE 0.9% 100 ML IV SCH (08:00)
[2019-12-25] MEDS: GABAPENTIN 100 MG CAPSULE PO SCH (08:00)
[2019-12-25] MEDS: METOPROLOL TARTRATE 25 MG TABLET PO SCH (08:00)
[2019-12-25] MEDS: PARoxetine 10 MG TABLET PO SCH (08:00)
== END 2019-12-25 10:22 | disposition home or self-care (01) | DRG 193 ==
LOC: EDBD → EDUNIT# → N.ED 17:36 → SUATTDRO 21:08 → N.EDINP 21:08 → N.ICU 21:42 → N.2E 12-21 15:52
PROVIDERS: ADMIT Internal Medicine; ATTEND Internal Medicine

== ENCOUNTER 2019-12-26 03:48 | Inpatient (IN) ==
[2019-12-26] MEDS ORDERED: PANTOPRAZOLE INJ 80 MG in SODIUM CHLORIDE 0.9% 100 ML IV STA (04:23)
[2019-12-26] MEDS ORDERED: ONDANSETRON 4 MG/2 ML VIAL IV STA (04:23)
[2019-12-26] MEDS ORDERED: SODIUM CHLORIDE 0.9% 500 ML IV STA (04:23)
[2019-12-26 04:31] LABS: Basophils % 0.7 % (0.0-0.8); Eosinophils # 0.5 10*3/uL (0.0-0.87); Eosinophils % 9.1 % (0.00-10.9); Hematocrit 27.5 VOL% (35.7-47.0); Hemoglobin 8.1 GM/DL (12.0-16.0); Immature Granulocytes % 0.7 %; Immature Granulocytes Absolute 0.04 #; Lymphocytes # 0.8 10*3/uL (1.4-4.0); Lymphocytes % 13.4 % (21.3-54.2); Mean Corpuscular HGB Conc 29.5 GM/DL (32-36); Mean Corpuscular Volume 95.8 FL (87-102); Mean Platelet Volume 11.2 FL (9.6-12.0); Monocytes % 6.4 % (1.7-12.7); Neutrophils % 69.7 % (38.7-73.9); Platelet Count 158 T/CUMM (130-400); Red Blood Count 2.87 MC/CUMM (3.8-5.5); Red Cell Distribution Width 16.8 % (9.3-17.3)
[2019-12-26] MEDS ORDERED: PANTOPRAZOLE 40 MG VIAL IV ONE (04:35)
[2019-12-26 04:38] LABS: PT Patient Result 10.5 SECS (9.8-11.9); Partial Thromboplastin Time 22.3 SECS (23.9-33.8)
[2019-12-26 04:46] LABS: Alanine Aminotransferase 11 U/L (13-56); Albumin 2.5 G/DL (3.4-5.0); Alkaline Phosphatase 46 U/L (45-117); Aspartate Amino Transferase 11 U/L (0-37); Bilirubin,Total < 0.39 MG/DL (0.2-1.0); Blood Urea Nitrogen 48 MG/DL (7-18); Calcium 7.7 MG/DL (8.5-10.1); Estimated Glom Filtration Rate 13 ML/MIN; Glucose 306 MG/DL (74-106); Osmolality,Calculated 303.4 MOS/KG (273-304); Total Protein 5.5 G/DL (6.4-8.3)
[2019-12-26] MEDS ORDERED: ONDANSETRON 4 MG/2 ML VIAL IV PRN (05:56)
[2019-12-26] MEDS ORDERED: ACETAMINOPHEN 325 MG TABLET PO PRN (05:56)
[2019-12-26] MEDS ORDERED: DEXTROSE 5% NACL 0.45% 1,000 ML IV SCH (06:00)
[2019-12-26] MEDS ORDERED: PANTOPRAZOLE INJ 200 MG in SODIUM CHLORIDE 0.9% 250 ML IV SCH (06:00)
[2019-12-26] MEDS: PIPERACILLIN/TAZOBACTAM 3,375 MG in SODIUM CHLORIDE 0.9% 100 ML IV SCH ×2 (06:45→18:48)
[2019-12-26] MEDS: PANTOPRAZOLE INJ 200 MG in SODIUM CHLORIDE 0.9% 250 ML IV SCH (08:16)
[2019-12-26] MEDS ORDERED: NITROGLYCERIN SL 0.4 MG TABLET SL PRN (09:55)
[2019-12-26] MEDS ORDERED: LORazepam 2 MG/1 ML VIAL IV ONE (11:00)
[2019-12-26] MEDS ORDERED: POTASSIUM CHLORIDE 20 MEQ TABLET PO PRN (12:18)
[2019-12-26] MEDS: INSULIN LISPRO 100 UNIT/ML SUBCUT SCH ×3 (12:45→21:14)
[2019-12-26] MEDS ORDERED: EPOETIN ALFA-EPBX 2,000 UNIT/ML VIAL IV PRN (13:20)
[2019-12-26] MEDS: ALBUTEROL/IPRATROPIUM 3 ML NEB RESP TX SCH ×2 (13:46→18:57)
[2019-12-26] MEDS ORDERED: HEPARIN 10,000 UNIT/10 ML VIAL IV SCH (14:15)
[2019-12-26] MEDS: SEVELAMER CARBONATE 800 MG TABLET PO SCH ×2 (16:01→21:13)
[2019-12-26] MEDS ORDERED: ALBUTEROL/IPRATROPIUM 3 ML NEB RESP TX PRN (19:17)
[2019-12-26] MEDS: LORATADINE 10 MG TABLET PO SCH (21:13)
[2019-12-26] MEDS: ATORVASTATIN 40 MG TABLET PO SCH (21:13)
[2019-12-26] MEDS: METOPROLOL TARTRATE 25 MG TABLET PO SCH (21:13)
[2019-12-27] MEDS: PIPERACILLIN/TAZOBACTAM 3,375 MG in SODIUM CHLORIDE 0.9% 100 ML IV SCH ×2 (06:10→22:43)
[2019-12-27 06:49] LABS: Basophils # 0.1 10*3/uL (0.0-0.2); Basophils % 0.5 % (0.0-0.8); Eosinophils # 0.4 10*3/uL (0.0-0.87); Eosinophils % 4.1 % (0.00-10.9); Immature Granulocytes % 0.4 %; Immature Granulocytes Absolute 0.04 #; Lymphocytes # 1.8 10*3/uL (1.4-4.0); Lymphocytes % 19.4 % (21.3-54.2); Mean Corpuscular HGB Conc 30.4 GM/DL (32-36); Mean Corpuscular Volume 94.9 FL (87-102); Mean Platelet Volume 11.4 FL (9.6-12.0); Monocytes % 8.3 % (1.7-12.7); Neutrophils % 67.3 % (38.7-73.9); Platelet Count 167 T/CUMM (130-400); Red Blood Count 1.77 MC/CUMM (3.8-5.5); Red Cell Distribution Width 17.5 % (9.3-17.3); White Blood Count 9.2 T/CUMM (4-12)
[2019-12-27 06:50] LABS: Hematocrit 16.8 VOL% (35.7-47.0); Hemoglobin 5.1 GM/DL (12.0-16.0)
[2019-12-27 07:14] LABS: Albumin 2.1 G/DL (3.4-5.0); Bilirubin,Total 0.5 MG/DL (0.2-1.0); Calcium 7.8 MG/DL (8.5-10.1); Osmolality,Calculated 294.1 MOS/KG (273-304); Risk Ratio 4.2; Thyroid Stimulating Hormone 1.55 uIU/ml (0.358-3.74); Total Protein 5.2 G/DL (6.4-8.3); VLDL CHOLESTEROL 53.2 MG/DL
[2019-12-27] MEDS ORDERED: SODIUM CHLORIDE 0.9% 1,000 ML IV PRN ×2 (07:15→07:16)
[2019-12-27] MEDS: PANTOPRAZOLE INJ 200 MG in SODIUM CHLORIDE 0.9% 250 ML IV SCH (07:20)
[2019-12-27] MEDS: INSULIN LISPRO 100 UNIT/ML SUBCUT SCH ×4 (09:08→21:03)
[2019-12-27] MEDS: POLYETHYLENE GLYCOL POWDER 17 GM PACK PO SCH (09:47)
[2019-12-27] MEDS: LIDOCAINE 5% PATCH TRANSDERM SCH (09:48)
[2019-12-27] MEDS: METOPROLOL TARTRATE 25 MG TABLET PO SCH ×2 (09:48→20:59)
[2019-12-27] MEDS: PARoxetine 10 MG TABLET PO SCH (09:48)
[2019-12-27] MEDS: MULTIVITAMIN (BEROCCA) TABLET PO SCH (09:48)
[2019-12-27] MEDS: CYANOCOBALAMIN 500 MCG TABLET PO SCH (09:48)
[2019-12-27] MEDS: SEVELAMER CARBONATE 800 MG TABLET PO SCH ×3 (09:49→20:59)
[2019-12-27] MEDS: SEVELAMER CARBONATE POWDER 2.4 GM PACK PO SCH (09:49)
[2019-12-27] MEDS: GABAPENTIN 100 MG CAPSULE PO SCH (09:49)
[2019-12-27] MEDS: FOLIC ACID 0.4 MG TABLET PO SCH (09:49)
[2019-12-27] MEDS: LORATADINE 10 MG TABLET PO SCH ×2 (09:49→20:59)
[2019-12-27] MEDS: ATORVASTATIN 40 MG TABLET PO SCH (20:59)
[2019-12-27 21:49] LABS: Hematocrit 26.5 VOL% (35.7-47.0); Hemoglobin 8.4 GM/DL (12.0-16.0)
[2019-12-27] MEDS: POTASSIUM CHLORIDE RIDER 10 MEQ in PREMIX 1 EACH IV SCH ×2 (22:43→23:56)
[2019-12-28] MEDS: POTASSIUM CHLORIDE RIDER 10 MEQ in PREMIX 1 EACH IV SCH ×3 (00:57→07:35)
[2019-12-28 06:09] LABS: Basophils # 0.1 10*3/uL (0.0-0.2); Eosinophils # 0.5 10*3/uL (0.0-0.87); Eosinophils % 5.1 % (0.00-10.9); Hematocrit 25.5 VOL% (35.7-47.0); Hemoglobin 7.9 GM/DL (12.0-16.0); Immature Granulocytes % 0.8 %; Immature Granulocytes Absolute 0.08 #; Lymphocytes # 1.7 10*3/uL (1.4-4.0); Mean Corpuscular Volume 91.7 FL (87-102); Mean Platelet Volume 11.8 FL (9.6-12.0); Monocytes % 6.6 % (1.7-12.7); NRBC # 0.02 10*3/uL; Neutrophils % 70.5 % (38.7-73.9); Platelet Count 174 T/CUMM (130-400); Red Blood Count 2.78 MC/CUMM (3.8-5.5); Red Cell Distribution Width 19.2 % (9.3-17.3); White Blood Count 10.5 T/CUMM (4-12)
[2019-12-28 06:48] LABS: Albumin 2.3 G/DL (3.4-5.0); Bilirubin,Total 0.9 MG/DL (0.2-1.0); Osmolality,Calculated 290.7 MOS/KG (273-304); Total Protein 5.7 G/DL (6.4-8.3)
[2019-12-28] MEDS: INSULIN LISPRO 100 UNIT/ML SUBCUT SCH ×4 (08:32→22:08)
[2019-12-28 09:52] LABS: Eosinophils,Pleural Fluid 1 %; Lymphocytes,Pleural Fluid 80 %; Monocytes,Pleural Fluid 16 %; Neutrophils,Pleural Fluid 3 %
[2019-12-28 09:54] LABS: RBC,Pleural Fluid 304 T/CUMM
[2019-12-28] MEDS: POLYETHYLENE GLYCOL POWDER 17 GM PACK PO SCH (10:12)
[2019-12-28] MEDS: SEVELAMER CARBONATE POWDER 2.4 GM PACK PO SCH ×2 (10:12→18:13)
[2019-12-28] MEDS: METOPROLOL TARTRATE 25 MG TABLET PO SCH ×2 (10:13→22:04)
[2019-12-28] MEDS: FOLIC ACID 0.4 MG TABLET PO SCH (10:13)
[2019-12-28] MEDS: PANTOPRAZOLE 40 MG TABLET PO SCH (10:14)
[2019-12-28] MEDS: MULTIVITAMIN (BEROCCA) TABLET PO SCH (10:14)
[2019-12-28] MEDS: CYANOCOBALAMIN 500 MCG TABLET PO SCH (10:14)
[2019-12-28] MEDS: PARoxetine 10 MG TABLET PO SCH (10:14)
[2019-12-28] MEDS: GABAPENTIN 100 MG CAPSULE PO SCH (10:15)
[2019-12-28] MEDS: LORATADINE 10 MG TABLET PO SCH ×2 (10:15→22:04)
[2019-12-28] MEDS: LIDOCAINE 5% PATCH TRANSDERM SCH (10:16)
[2019-12-28] MEDS: SEVELAMER CARBONATE 800 MG TABLET PO SCH ×2 (10:18→15:38)
[2019-12-28] MEDS: PIPERACILLIN/TAZOBACTAM 3,375 MG in SODIUM CHLORIDE 0.9% 100 ML IV SCH ×2 (11:17→22:07)
[2019-12-28] MEDS: ALBUTEROL/IPRATROPIUM 3 ML NEB RESP TX SCH ×2 (15:45→19:42)
[2019-12-28] MEDS: ATORVASTATIN 40 MG TABLET PO SCH (22:04)
[2019-12-28] MEDS: traMADol 50 MG TABLET PO SCH (22:04)
[2019-12-28] MEDS: MENTHOL/ZINC OXIDE OINT 71 GM JAR TOP SCH (22:04)
[2019-12-29] MEDS: ALBUTEROL/IPRATROPIUM 3 ML NEB RESP TX SCH ×4 (01:00→19:28)
[2019-12-29 06:16] LABS: Basophils # 0.1 10*3/uL (0.0-0.2); Basophils % 0.8 % (0.0-0.8); Eosinophils # 0.3 10*3/uL (0.0-0.87); Eosinophils % 3.5 % (0.00-10.9); Hematocrit 24.6 VOL% (35.7-47.0); Hemoglobin 7.6 GM/DL (12.0-16.0); Immature Granulocytes % 0.7 %; Immature Granulocytes Absolute 0.05 #; Lymphocytes # 1.3 10*3/uL (1.4-4.0); Lymphocytes % 17.4 % (21.3-54.2); Mean Corpuscular HGB Conc 30.9 GM/DL (32-36); Mean Corpuscular Volume 91.8 FL (87-102); Mean Platelet Volume 11.6 FL (9.6-12.0); Monocytes % 6.6 % (1.7-12.7); Platelet Count 153 T/CUMM (130-400); Red Blood Count 2.68 MC/CUMM (3.8-5.5); White Blood Count 7.7 T/CUMM (4-12)
[2019-12-29 06:35] LABS: Albumin 2.3 G/DL (3.4-5.0); Bilirubin,Total 0.6 MG/DL (0.2-1.0); Calcium 7.9 MG/DL (8.5-10.1); Osmolality,Calculated 290.1 MOS/KG (273-304); Total Protein 5.7 G/DL (6.4-8.3)
[2019-12-29] MEDS: INSULIN LISPRO 100 UNIT/ML SUBCUT SCH ×4 (09:11→21:49)
[2019-12-29] MEDS: LORATADINE 10 MG TABLET PO SCH ×2 (09:12→21:48)
[2019-12-29] MEDS: METOPROLOL TARTRATE 25 MG TABLET PO SCH ×2 (09:12→21:48)
[2019-12-29] MEDS: SEVELAMER CARBONATE POWDER 2.4 GM PACK PO SCH ×3 (09:12→17:52)
[2019-12-29] MEDS: traMADol 50 MG TABLET PO SCH ×4 (09:13→21:49)
[2019-12-29] MEDS: FOLIC ACID 0.4 MG TABLET PO SCH (14:15)
[2019-12-29] MEDS: GABAPENTIN 100 MG CAPSULE PO SCH (14:16)
[2019-12-29] MEDS: PARoxetine 10 MG TABLET PO SCH (14:16)
[2019-12-29] MEDS: CYANOCOBALAMIN 500 MCG TABLET PO SCH (14:16)
[2019-12-29] MEDS: MULTIVITAMIN (BEROCCA) TABLET PO SCH (14:16)
[2019-12-29] MEDS: PANTOPRAZOLE 40 MG TABLET PO SCH (14:17)
[2019-12-29] MEDS: LIDOCAINE 5% PATCH TRANSDERM SCH ×2 (14:17→14:23)
[2019-12-29] MEDS: POLYETHYLENE GLYCOL POWDER 17 GM PACK PO SCH (14:17)
[2019-12-29] MEDS: PIPERACILLIN/TAZOBACTAM 3,375 MG in SODIUM CHLORIDE 0.9% 100 ML IV SCH ×2 (14:24→21:50)
[2019-12-29] MEDS: MENTHOL/ZINC OXIDE OINT 71 GM JAR TOP SCH ×2 (17:39→21:49)
[2019-12-29] MEDS: ATORVASTATIN 40 MG TABLET PO SCH (21:49)
[2019-12-30] MEDS: ALBUTEROL/IPRATROPIUM 3 ML NEB RESP TX SCH ×4 (01:00→19:08)
[2019-12-30 05:18] LABS: Basophils # 0.1 10*3/uL (0.0-0.2); Basophils % 1.1 % (0.0-0.8); Eosinophils # 0.6 10*3/uL (0.0-0.87); Eosinophils % 7.6 % (0.00-10.9); Hematocrit 25.7 VOL% (35.7-47.0); Hemoglobin 7.8 GM/DL (12.0-16.0); Immature Granulocytes % 0.4 %; Immature Granulocytes Absolute 0.03 #; Lymphocytes # 1.3 10*3/uL (1.4-4.0); Lymphocytes % 17.3 % (21.3-54.2); Mean Corpuscular HGB Conc 30.4 GM/DL (32-36); Mean Corpuscular Volume 94.1 FL (87-102); Mean Platelet Volume 11.5 FL (9.6-12.0); Monocytes % 9.5 % (1.7-12.7); Neutrophils % 64.1 % (38.7-73.9); Platelet Count 165 T/CUMM (130-400); Red Blood Count 2.73 MC/CUMM (3.8-5.5); Red Cell Distribution Width 18.8 % (9.3-17.3); White Blood Count 7.5 T/CUMM (4-12)
[2019-12-30 05:35] LABS: Calcium 7.9 MG/DL (8.5-10.1); Osmolality,Calculated 275.1 MOS/KG (273-304)
[2019-12-30] MEDS: INSULIN LISPRO 100 UNIT/ML SUBCUT SCH ×4 (10:04→21:58)
[2019-12-30] MEDS: SEVELAMER CARBONATE POWDER 2.4 GM PACK PO SCH ×3 (10:07→17:34)
[2019-12-30] MEDS: POLYETHYLENE GLYCOL POWDER 17 GM PACK PO SCH (10:08)
[2019-12-30] MEDS: CYANOCOBALAMIN 500 MCG TABLET PO SCH (10:08)
[2019-12-30] MEDS: PANTOPRAZOLE 40 MG TABLET PO SCH (10:09)
[2019-12-30] MEDS: METOPROLOL TARTRATE 25 MG TABLET PO SCH ×2 (10:09→21:58)
[2019-12-30] MEDS: LORATADINE 10 MG TABLET PO SCH ×2 (10:09→21:58)
[2019-12-30] MEDS: traMADol 50 MG TABLET PO SCH ×4 (10:09→21:58)
[2019-12-30] MEDS: PARoxetine 10 MG TABLET PO SCH (10:09)
[2019-12-30] MEDS: FOLIC ACID 0.4 MG TABLET PO SCH (10:09)
[2019-12-30] MEDS: GABAPENTIN 100 MG CAPSULE PO SCH (10:09)
[2019-12-30] MEDS: MULTIVITAMIN (BEROCCA) TABLET PO SCH (10:13)
[2019-12-30] MEDS: PIPERACILLIN/TAZOBACTAM 3,375 MG in SODIUM CHLORIDE 0.9% 100 ML IV SCH ×2 (10:32→22:03)
[2019-12-30] MEDS: LIDOCAINE 5% PATCH TRANSDERM SCH (10:35)
[2019-12-30] MEDS: MENTHOL/ZINC OXIDE OINT 71 GM JAR TOP SCH ×2 (10:39→22:03)
[2019-12-30 15:32] LABS: CEA, Pleural Fluid 0.5 ng/mL
[2019-12-30] MEDS: ATORVASTATIN 40 MG TABLET PO SCH (21:58)
[2019-12-30] MEDS ORDERED: SODIUM CHLORIDE 0.9% 1,000 ML IV PRN (22:38)
[2019-12-31] MEDS: ALBUTEROL/IPRATROPIUM 3 ML NEB RESP TX SCH ×4 (00:06→19:19)
[2019-12-31 05:53] LABS: Basophils # 0.1 10*3/uL (0.0-0.2); Eosinophils # 0.6 10*3/uL (0.0-0.87); Eosinophils % 8.3 % (0.00-10.9); Hematocrit 25.3 VOL% (35.7-47.0); Hemoglobin 7.8 GM/DL (12.0-16.0); Immature Granulocytes % 0.7 %; Immature Granulocytes Absolute 0.05 #; Lymphocytes # 1.4 10*3/uL (1.4-4.0); Lymphocytes % 21.2 % (21.3-54.2); Mean Corpuscular HGB Conc 30.8 GM/DL (32-36); Mean Corpuscular Volume 93.4 FL (87-102); Mean Platelet Volume 11.6 FL (9.6-12.0); Monocytes % 11.7 % (1.7-12.7); Neutrophils % 57.1 % (38.7-73.9); Platelet Count 172 T/CUMM (130-400); Red Blood Count 2.71 MC/CUMM (3.8-5.5); Red Cell Distribution Width 18.5 % (9.3-17.3); White Blood Count 6.8 T/CUMM (4-12)
[2019-12-31 06:17] LABS: Calcium 7.9 MG/DL (8.5-10.1); Osmolality,Calculated 272.2 MOS/KG (273-304)
[2019-12-31] MEDS: INSULIN LISPRO 100 UNIT/ML SUBCUT SCH ×4 (08:41→20:29)
[2019-12-31] MEDS: SEVELAMER CARBONATE POWDER 2.4 GM PACK PO SCH ×3 (12:20→16:54)
[2019-12-31] MEDS: MENTHOL/ZINC OXIDE OINT 71 GM JAR TOP SCH ×2 (12:20→21:14)
[2019-12-31] MEDS: traMADol 50 MG TABLET PO SCH ×4 (12:21→21:13)
[2019-12-31] MEDS: PIPERACILLIN/TAZOBACTAM 3,375 MG in SODIUM CHLORIDE 0.9% 100 ML IV SCH ×2 (12:21→21:32)
[2019-12-31] MEDS: CYANOCOBALAMIN 500 MCG TABLET PO SCH (12:28)
[2019-12-31] MEDS: PANTOPRAZOLE 40 MG TABLET PO SCH (12:29)
[2019-12-31] MEDS: FOLIC ACID 0.4 MG TABLET PO SCH (12:29)
[2019-12-31] MEDS: GABAPENTIN 100 MG CAPSULE PO SCH (12:29)
[2019-12-31] MEDS: PARoxetine 10 MG TABLET PO SCH (12:29)
[2019-12-31] MEDS: LORATADINE 10 MG TABLET PO SCH ×2 (12:30→21:13)
[2019-12-31] MEDS: MULTIVITAMIN (BEROCCA) TABLET PO SCH (12:30)
[2019-12-31] MEDS: POLYETHYLENE GLYCOL POWDER 17 GM PACK PO SCH (12:30)
[2019-12-31] MEDS: METOPROLOL TARTRATE 25 MG TABLET PO SCH ×2 (12:30→21:13)
[2019-12-31] MEDS: LIDOCAINE 5% PATCH TRANSDERM SCH (12:31)
[2019-12-31] MEDS: ATORVASTATIN 40 MG TABLET PO SCH (21:13)
[2020-01-01] MEDS: ALBUTEROL/IPRATROPIUM 3 ML NEB RESP TX SCH ×3 (01:06→07:04)
[2020-01-01 08:53] LABS: Basophils # 0.1 10*3/uL (0.0-0.2); Eosinophils # 0.5 10*3/uL (0.0-0.87); Eosinophils % 8.1 % (0.00-10.9); Hematocrit 28.8 VOL% (35.7-47.0); Immature Granulocytes % 0.3 %; Immature Granulocytes Absolute 0.02 #; Lymphocytes # 1.3 10*3/uL (1.4-4.0); Lymphocytes % 22.7 % (21.3-54.2); Mean Corpuscular HGB Conc 31.3 GM/DL (32-36); Mean Corpuscular Volume 93.5 FL (87-102); Mean Platelet Volume 11.9 FL (9.6-12.0); Neutrophils % 55.9 % (38.7-73.9); Platelet Count 152 T/CUMM (130-400); Red Blood Count 3.08 MC/CUMM (3.8-5.5); Red Cell Distribution Width 16.8 % (9.3-17.3); White Blood Count 5.9 T/CUMM (4-12)
[2020-01-01 09:22] LABS: Calcium 7.7 MG/DL (8.5-10.1); Osmolality,Calculated 275.1 MOS/KG (273-304)
[2020-01-01] MEDS: MULTIVITAMIN (BEROCCA) TABLET PO SCH (09:58)
[2020-01-01] MEDS: PARoxetine 10 MG TABLET PO SCH (09:59)
[2020-01-01] MEDS: CYANOCOBALAMIN 500 MCG TABLET PO SCH (09:59)
[2020-01-01] MEDS: METOPROLOL TARTRATE 25 MG TABLET PO SCH (10:00)
[2020-01-01] MEDS: GABAPENTIN 100 MG CAPSULE PO SCH (10:00)
[2020-01-01] MEDS: FOLIC ACID 0.4 MG TABLET PO SCH (10:00)
[2020-01-01] MEDS: PANTOPRAZOLE 40 MG TABLET PO SCH (10:00)
[2020-01-01] MEDS: LORATADINE 10 MG TABLET PO SCH (10:00)
[2020-01-01] MEDS: SEVELAMER CARBONATE POWDER 2.4 GM PACK PO SCH ×2 (10:00→14:12)
[2020-01-01] MEDS: LIDOCAINE 5% PATCH TRANSDERM SCH (10:01)
[2020-01-01] MEDS: POLYETHYLENE GLYCOL POWDER 17 GM PACK PO SCH (10:01)
[2020-01-01] MEDS: MENTHOL/ZINC OXIDE OINT 71 GM JAR TOP SCH (10:04)
[2020-01-01] MEDS: INSULIN LISPRO 100 UNIT/ML SUBCUT SCH ×2 (10:04→12:33)
[2020-01-01] MEDS: traMADol 50 MG TABLET PO SCH ×2 (10:09→14:12)
[2020-01-01] MEDS: PIPERACILLIN/TAZOBACTAM 3,375 MG in SODIUM CHLORIDE 0.9% 100 ML IV SCH (11:22)
[2020-01-01 13:06] VITALS: BP 105/39
[2020-01-01 13:56] LABS: Adenosine Deaminase Pleural Fl < 1.6 U/L (0.0 - 9.4); Source SEE COMMENTS
== END 2020-01-01 14:42 | DRG 813 ==
LOC: EDUNIT# → N.ED 03:48 → N.EDINP 05:53 → N.TELES 08:01
PROVIDERS: ADMIT Internal Medicine; ATTEND Internal Medicine